=== PATIENT | male | born 1960 | race African-American/Black ===

== ENCOUNTER 2016-10-24 15:14 | Inpatient (IN) | payer OTHER ==
--- NOTE | 2016-10-24 19:29 | PDOC ---
History of Present Illness - General History Source: Patient, Sibling Exam Limitations: No Limitations - History of Present Illness Initial Comments: 10/24/16 19:46 The patient is a 55 year old male with a significant past medical history of Afib, CHF, DVT s/p stent in right leg, diabetes, hypertension, and ulcers, presenting to the Emergency Department with left leg pain for two weeks. The patient describes the pain in his left leg as a pressure which has prevented him from walking for about one week. He reports pain in his calf, and thigh as high as his groin. He also reports lower back pain, and dyspnea when getting up. The patient reports that one month ago he was hospitalized for excess fluid , when he was diagnosed with GI ulcers and was taken off Coumadin. The patient s sister reports that the patient has not eaten a meal or taken his medication in one week, though he is prescribed Lasix and hypertension medication. The patient denies chest pain, diaphoresis, and palpitations. Patient denies nausea, vomiting, and diarrhea. Patient denies fever, chills, and cough. Patient denies headache, dizziness, and blurry vision. <Jeanne Hu - Last Filed: 10/25/16 00:39> <Rylee Smallwood - Last Filed: 10/25/16 01:04> - General Chief Complaint: Weakness Stated Complaint: WEAKNESS Time Seen by Provider: 10/24/16 19:17 Past History <Jeanne Hu - Last Filed: 10/25/16 00:39> - Past Medical History Cardiac Disorders: Yes (afib) Diabetes: Yes HTN: Yes - Surgical History Appendectomy: Yes - Psycho/Social/Smoking Cessation Hx Suicidal Ideation: No Smoking History: Never smoked <Rylee Smallwood - Last Filed: 10/25/16 01:04> - Past Medical History Allergies/Adverse Reactions: Allergies Allergy/AdvReac Type Severity Reaction Status Date / Time No Known Allergies Allergy Verified 10/24/16 15:15 Review of Systems - Review of Systems Able to Perform ROS?: Yes Comments:: 10/24/16 19:47 GENERAL/CONSTITUTIONAL: No fever or chills. No weakness. HEAD, EYES, EARS, NOSE AND THROAT: No change in vision. No ear pain or discharge. No sore throat. CARDIOVASCULAR: + dyspnea. No chest pain. RESPIRATORY: No cough, wheezing, or hemoptysis. GASTROINTESTINAL: No nausea, vomiting, diarrhea or constipation. GENITOURINARY: No dysuria, frequency, or change in urination. MUSCULOSKELETAL: No muscle swelling. No neck pain. EXTREMITIES: + left leg pain. SKIN: No rash. NEUROLOGIC: No headache, vertigo, loss of consciousness, or change in strength/ sensation. ENDOCRINE: No increased thirst. No abnormal weight change. HEMATOLOGIC/LYMPHATIC: No anemia, easy bleeding, or history of blood clots. ALLERGIC/IMMUNOLOGIC: No hives or skin allergy. <Jeanne Hu - Last Filed: 10/25/16 00:39> *Physical Exam - Vital Signs Last Vital Signs Temp Pulse Resp BP Pulse Ox 97.7 F 64 18 120/63 97 10/24/16 15:16 10/24/16 15:16 10/24/16 15:16 10/24/16 15:16 10/24/16 15:16 - Physical Exam Comments: 10/24/16 19:47 GENERAL: Awake, alert, and fully oriented, in no acute distress HEAD: No signs of trauma EYES: PERRLA, EOMI, sclera anicteric, conjunctiva clear ENT: Auricles normal inspection, hearing grossly normal, nares patent, oropharynx clear without exudates. Moist mucosa NECK: Normal ROM, supple, no lymphadenopathy, JVD, or masses LUNGS: Breath sounds equal, clear to auscultation bilaterally. No wheezes, and no crackles HEART: Regular rate and rhythm, normal S1 and S2, no murmurs, rubs or gallops ABDOMEN: Soft, nontender, normoactive bowel sounds. No guarding, no rebound. No masses EXTREMITIES: 1+ pitting edema bilaterally to lower extremities. Normal range of motion. No clubbing or cyanosis. No cords, erythema, or tenderness NEUROLOGICAL: Cranial nerves II through XII grossly intact. Normal speech, normal gait SKIN: Warm, Dry, normal turgor, no rashes or lesions noted. <Jeanne Hu - Last Filed: 10/25/16 00:39> - Vital Signs Last Vital Signs Temp Pulse Resp BP Pulse Ox 97.7 F 64 18 120/63 97 10/24/16 15:16 10/24/16 15:16 10/24/16 15:16 10/24/16 15:16 10/24/16 15:16 <Rylee Smallwood - Last Filed: 10/25/16 01:04> ED Treatment Course - LABORATORY CBC & Chemistry Diagram: 10/24/16 20:16 10/24/16 20:16 - RADIOLOGY Radiology Studies Ordered: 10/24/16 22:45 Bilateral lower extremity US As reviewed by Dr. Barr IMPRESSION: Extensive DVT seen throughout left lower extremity. There is partially occlusive DVT at right common femoral vein and femoral vein. Greater saphenous veins are thrombosed bilaterally. <Jeanne Hu - Last Filed: 10/25/16 00:39> - LABORATORY CBC & Chemistry Diagram: 10/24/16 20:16 10/24/16 20:16 <Rylee Smallwood - Last Filed: 10/25/16 01:04> Medical Decision Making - Medical Decision Making 10/24/16 22:46 Patient Name: Ruben Pretty PRELIMINARY REPORT FROM [facility] EXAM: Ultrasound venous duplex bilateral DATE: 2016-10-24 20:40:25.0 IMAGES: 74 HISTORY: Pain, possible DVT REPORT: Extensive DVT seen throughout left lower extremity. There is partially occlusive DVT at right common femoral vein and femoral vein. Greater saphenous veins are thrombosed bilaterally.. THIS DOCUMENT HAS BEEN ELECTRONICALLY SIGNED Parish Barr MD 10/25/16 00:31 I requested ICU evaluation for the patient, as he has multiple systems involved , renal insuff/faliure; GI ulcers/bleeding; rapid atrial fibrillation; and multiple DVTs 10/25/16 01:03 [facility]ist wants pt on med surg obs. Bed requested. <Rylee Smallwood - Last Filed: 10/25/16 01:04> *DC/Admit/Observation/Transfer - Attestations Scribe Attestion: 10/24/16 19:48 Documentation prepared by Jeanne Hu, acting as medical language specialist for Rylee Smallwood MD. <Jeanne Hu - Last Filed: 10/25/16 00:39> - Discharge Dispostion Admit: Yes <Rylee Smallwood - Last Filed: 10/25/16 01:04> Diagnosis at time of Disposition: DVT (deep venous thrombosis), Atrial fibrillation, Acute renal insufficiency, Dehydration - Discharge Dispostion Condition at time of disposition: Poor - Referrals Referrals: Alfonso Galvan MD [Primary Care Provider] -
[2016-10-24 20:27] LABS: BASOPHIL 1.3 % (0-2.0); EOSINOPHIL 0.2 % (0-4.5); MCH 25.6 pg (25.7-33.7); MCHC 32.4 g/dl (32.0-35.9); MEAN CELL VOLUME 79.2 fl (80-96); MEAN PLT VOLUME 7.5 fl (7.5-11.1); NEUTROPHILS 78.1 % (42.8-82.8); PLATELET COUNT 223 K/MM3 (134-434); RDW 20.9 % (11.9-15.9); WHITE BLOOD COUNT 19.6 K/mm3 (4.0-10.0)
[2016-10-24 20:41] LABS: INR 1.23 (0.82-1.09); PROTHROMBIN TIME (PATIENT) 13.6 SEC (9.98-11.88)
[2016-10-24 20:58] LABS: ALBUMIN 3.4 g/dl (3.4-5.0); BILIRUBIN,TOTAL 1.7 mg/dL (0.2-1.0); CALCIUM 9.7 mg/dL (8.5-10.1); CREATININE 2.6 mg/dL (0.7-1.3)
[2016-10-24 20:59] LABS: TOT PROT 9.6 g/dl (6.4-8.2)
[2016-10-24] MEDS ORDERED: HEPARIN NA (PORCINE) 5,000 UNITS/ML 1ML VIAL IVPUSH ONE (21:25)
[2016-10-24] MEDS ORDERED: HEPARIN NA (PORCINE) 5,000 UNITS/ML 1ML VIAL IVPUSH PRN (21:25)
[2016-10-24] MEDS ORDERED: SODIUM CHLORIDE 0.9% 500 ML INFUS.BAG IV ONE (21:27)
[2016-10-24 21:43] LABS: PLATELET ESTIMATE ADEQUATE (NORMAL); POLYCHROMASIA 1+
[2016-10-24 21:44] LABS: ANISOCYTOSIS 2+; POIKILOCYTOSIS 1+; TEAR DROP CELLS RARE
[2016-10-24] MEDS ORDERED: HEPARIN NA (PORCINE) 5,000 UNITS/ML 1ML VIAL ONE (22:32)
[2016-10-24] MEDS ORDERED: HEPARIN INFUSION - 500 ML IVPB ONE (22:32)
[2016-10-24] MEDS: HEPARIN - 25,000 UNIT in SODIUM CHLORIDE 495 ML IV SCH (23:16)
--- NOTE | 2016-10-25 01:56 | HP ---
CHIEF COMPLAINT: pain in left leg since one week PCP: DR villavicencio HISTORY OF PRESENT ILLNESS: The patient is a 55 year old male with a significant past medical history of Afib, CHF, DVT s/p stent in right leg, diabetes, hypertension, and ulcers, presenting to the Emergency Department with left leg pain for one week. The patient describes the pain in his left leg ( calf and thigh ) as a pressure, non radiating 8/10 in intensity, increases on walking and standing. He also reports lower back pain, and dyspnea when getting up. Patient states he had gi bleed and was diagnosed with GI ulcers and about 2 week ago was taken off from Coumadin. The patient denies chest pain, diaphoresis, and palpitations. Patient denies nausea, vomiting, and diarrhea. Patient denies fever, chills, and cough. Patient denies headache, dizziness, and blurry vision. Patient denies burning micturation. Denies any recent contact. Denies bleeding from gums, nose, in urine and in stool. ER course was notable for: (1) IV heparin drip (2)cbc, cmp, (3) doppler usg Recent Travel: No PAST MEDICAL HISTORY: Afib ( diagnosed 2 year ago ), CHF, DVT ( 2 years ago in right leg ), PVD s/p stent in right leg, diabetes, hypertension, and ulcers PAST SURGICAL HISTORY: appendectomy Social History: Smoking: No Alcohol: No Drugs: No Family History: no relevent family history Allergies No Known Allergies Allergy (Verified 10/24/16 15:15) HOME MEDICATIONS: REVIEW OF SYSTEMS CONSTITUTIONAL: Absent: fever, chills, diaphoresis, generalized weakness, malaise, loss of appetite, weight change HEENT: Absent: rhinorrhea, nasal congestion, throat pain, throat swelling, difficulty swallowing, mouth swelling, ear pain, eye pain, visual changes CARDIOVASCULAR: Absent: chest pain, syncope, palpitations, irregular heart rate, lightheadedness , peripheral edema RESPIRATORY: Absent: cough, shortness of breath, dyspnea with exertion, orthopnea, wheezing, stridor, hemoptysis GASTROINTESTINAL: Absent: abdominal pain, abdominal distension, nausea, vomiting, diarrhea, constipation, melena, hematochezia GENITOURINARY: Absent: dysuria, frequency, urgency, hesitancy, hematuria, flank pain, genital pain MUSCULOSKELETAL: Pain in left leg SKIN: Absent: rash, itching, pallor HEMATOLOGIC/IMMUNOLOGIC: Absent: easy bleeding, easy bruising, lymphadenopathy, frequent infections ENDOCRINE: Absent: unexplained weight gain, unexplained weight loss, heat intolerance, cold intolerance NEUROLOGIC: Absent: headache, focal weakness or paresthesias, dizziness, unsteady gait, seizure, mental status changes, bladder or bowel incontinence PSYCHIATRIC: Absent: anxiety, depression, suicidal or homicidal ideation, hallucinations. PHYSICAL EXAMINATION Vital Signs - 24 hr 10/24/16 10/24/16 10/24/16 15:16 19:35 21:55 Temperature 97.7 F 97.5 F L 98.2 F Pulse Rate 64 Pulse Rate [ 88 92 H Apical] Respiratory 18 18 18 Rate Blood Pressure 120/63 Blood Pressure 127/79 118/58 [Right Arm] O2 Sat by Pulse 97 100 99 Oximetry (%) 10/25/16 01:00 Temperature 98.6 F Pulse Rate Pulse Rate [ 62 Apical] Respiratory 18 Rate Blood Pressure Blood Pressure 112/46 [Right Arm] O2 Sat by Pulse 97 Oximetry (%) GENERAL: Awake, alert, and fully oriented, in no acute distress. HEAD: Normal with no signs of trauma. EYES: Pupils equal, round and reactive to light, extraocular movements intact, EARS, NOSE, THROAT: Ears normal, nares patent, oropharynx clear without exudates. Moist mucous membranes. NECK: Normal range of motion, supple without lymphadenopathy, JVD, or masses. LUNGS: Breath sounds equal, clear to auscultation bilaterally. No wheezes, and no crackles. No accessory muscle use. HEART: s1s2 normal ABDOMEN: Soft, nontender, not distended, normoactive bowel sounds, no guarding, no rebound, no masses. MUSCULOSKELETAL: Normal range of motion at all joints. No bony deformities or tenderness. No CVA tenderness. UPPER EXTREMITIES: 2+ pulses, warm, well-perfused. No cyanosis. No clubbing. Cap refill <2 seconds. No peripheral edema. LOWER EXTREMITIES: pulses not palpable, warm, No peripheral edema. no swelling , 1x1cm ulcer present on finger of left and right feet. NEUROLOGICAL: Cranial nerves II-XII intact. Normal speech. Normal gait. PSYCHIATRIC: Cooperative. Good eye contact. Appropriate mood and affect. SKIN: Warm, dry, normal turgor, no rashes or lesions noted. Laboratory Results - last 24 hr 10/24/16 10/24/16 10/24/16 20:16 20:16 20:16 WBC 19.6 H RBC 4.97 Hgb 12.7 Hct 39.3 MCV 79.2 L MCHC 32.4 RDW 20.9 H Plt Count 223 MPV 7.5 Neutrophils % 78.1 Lymphocytes % 11.8 Monocytes % 8.6 Eosinophils % 0.2 Basophils % 1.3 Platelet Estimate Adequate Platelet Comment Rare giant plts Polychromasia 1+ Poikilocytosis 1+ Anisocytosis 2+ Tear Drop Cells Rare Morphology Comment Slide scanned INR PTT (Actin FS) D-Dimer > 5000 H Sodium 133 L Potassium 3.6 Chloride 89 L Carbon Dioxide 31 Anion Gap 13 BUN 58 H Creatinine 2.6 H Creat Clearance w eGFR 25.66 Random Glucose 57 L Lactic Acid Calcium 9.7 Total Bilirubin 1.7 H AST 21 ALT 13 Alkaline Phosphatase 138 H Total Protein 9.6 H Albumin 3.4 10/24/16 10/24/16 10/24/16 20:16 22:31 22:31 WBC RBC Hgb Hct MCV MCHC RDW Plt Count MPV Neutrophils % Lymphocytes % Monocytes % Eosinophils % Basophils % Platelet Estimate Platelet Comment Polychromasia Poikilocytosis Anisocytosis Tear Drop Cells Morphology Comment INR 1.23 H PTT (Actin FS) 25.6 L D-Dimer Sodium Potassium Chloride Carbon Dioxide Anion Gap BUN Creatinine Creat Clearance w eGFR Random Glucose Lactic Acid 2.501 H* Calcium Total Bilirubin AST ALT Alkaline Phosphatase Total Protein Albumin Doppler usg : Extensive DVT seen throughout left lower extremity. There is partially occlusive DVT at right common femoral vein and femoral vein. Greater saphenous veins are thrombosed bilaterally ASSESSMENT/PLAN: The patient is a 55 year old male with a significant past medical history of Afib, CHF, DVT s/p stent in right leg, diabetes, hypertension , and ulcers, presenting to the Emergency Department with left leg pain for one week. Found to have DVT Please confirm his list of medication. DVT : continue with heparin drip monitor aptt q6h watch for bleeding vascular surgery consult: may need IVC filter monitor vitals AMY could be pre renal started on IV fluid, gentle hydration as patient has h/o chf follow sr creatnine follow ua, urine lytes, creat, protien avoid nephrotoxic drugs renal ultrasound Leucocytosis and lactic acidosis could be due to DVT. patient is afebrile, no tachy follow wbc in morning follow ua started on IV fluid, follow repeat lactic acid afib on heparin drip coreg 12.5 bid HTN controlled coreg 25 bid DM started on sliding scale diabetic diet monitor blood glucose achs h/o CHF hold lasix 20mg bid, because to amy watch for fluid overload fluid : IV ns 42ml/hr electroyte : follow in am nutrition : diabetic diet DVT pro ; on heparin Gi pro ; started on protonix iv bid dispo : in med surg Visit type - Emergency Visit Emergency Visit: Yes ED Registration Date: 10/25/16 Care time: The patient presented to the Emergency Department on the above date and was hospitalized for further evaluation of their emergent condition. - New Patient This patient is new to me today: Yes Date on this admission: 10/25/16 - Critical Care Critical Care patient: No
[2016-10-25] MEDS: SODIUM CHLORIDE 1,000 ML IV SCH ×2 (01:57→21:04)
--- NOTE | 2016-10-25 02:50 | PN ---
<ChynaJung - Last Filed: 10/25/16 02:50> Teaching Attending Note Name of Resident: Trevon Malhotra ATTENDING PHYSICIAN STATEMENT I saw and evaluated the patient. I reviewed the resident's note and discussed the case with the resident. I agree with the resident's findings and plan as documented. SUBJECTIVE: OBJECTIVE: ASSESSMENT AND PLAN: <BoyandreRobert - Last Filed: 10/25/16 04:41> Teaching Attending Note ATTENDING PHYSICIAN STATEMENT I saw and evaluated the patient. I reviewed the resident's note and discussed the case with the resident. I agree with the resident's findings and plan as documented. Imaging data and chart reviewed. SUBJECTIVE: The patient is a 55 year old male with a significant past medical history of Afib, CHF, DVT s/p stent in right leg, diabetes, hypertension, and ulcers, presenting to the Emergency Department with left leg pain for two weeks. The patient described the pain in his left leg as a pressure which has prevented him from walking for about one week. He reported pain in his calf, and thigh. The patient reported that one month ago he was hospitalized for excess fluid, when he was diagnosed with GI ulcers and was taken off Coumadin. The patient reported that he has not eaten a meal secondary to his immobility. The patient denied chest pain, diaphoresis, and palpitations. Patient denies nausea, vomiting, and diarrhea. Patient denies fever, chills, and cough. Patient denies headache, dizziness, and blurry vision. OBJECTIVE: Vital Signs: Last Vital Signs Temp Pulse Resp BP Pulse Ox 98.6 F 62 18 112/46 97 10/25/16 01:00 10/25/16 01:00 10/25/16 01:00 10/25/16 01:00 10/25/16 01:00 Physical Exam: GENERAL: Awake, alert, and fully oriented, in no acute distress. HEENT: Atraumatic. Moist mucosa. Normocephalic. No sinus tenderness. No LAD. NECK: No JVD. No thyroid masses. Supple. LUNGS: Clear to auscultation bilaterally. No wheezing, rhonchi or rales. HEART: Regular rate and rhythm, normal S1 and S2, no murmurs, rubs or gallops, peripheral pulses normal and equal bilaterally. ABDOMEN: Soft, nontender, normoactive bowel sounds. No guarding, no rebound. No Masses. MUSCULOSKELETAL: No joint tenderness or erythema. No muscle tenderness. Normal muscle bulk and tone. EXTREMITIES: (+) scaley changes bilaterally ulcers on 3rd toes bilaterally NEUROLOGICAL: Normal speech, normal gait, no focal sensorimotor deficits. Labs: CBCD WBC 19.6 K/mm3 (4.0-10.0) H 10/24/16 20:16 RBC 4.97 M/mm3 (4.00-5.60) 10/24/16 20:16 Hgb 12.7 GM/dL (11.7-16.9) 10/24/16 20:16 Hct 39.3 % (35.4-49) 10/24/16 20:16 MCV 79.2 fl (80-96) L 10/24/16 20:16 MCHC 32.4 g/dl (32.0-35.9) 10/24/16 20:16 RDW 20.9 % (11.9-15.9) H 10/24/16 20:16 Plt Count 223 K/MM3 (134-434) 10/24/16 20:16 MPV 7.5 fl (7.5-11.1) 10/24/16 20:16 CMP Sodium 133 mmol/L (136-145) L 10/24/16 20:16 Potassium 3.6 mmol/L (3.5-5.1) 10/24/16 20:16 Chloride 89 mmol/L (98-107) L 10/24/16 20:16 Carbon Dioxide 31 mmol/L (21-32) 10/24/16 20:16 Anion Gap 13 (8-16) 10/24/16 20:16 BUN 58 mg/dL (7-18) H 10/24/16 20:16 Creatinine 2.6 mg/dL (0.7-1.3) H 10/24/16 20:16 Creat Clearance w eGFR 25.66 (>60) 10/24/16 20:16 Calcium 9.7 mg/dL (8.5-10.1) 10/24/16 20:16 Total Bilirubin 1.7 mg/dL (0.2-1.0) H 10/24/16 20:16 AST 21 U/L (15-37) 10/24/16 20:16 ALT 13 U/L (12-78) 10/24/16 20:16 Alkaline Phosphatase 138 U/L (45-117) H 10/24/16 20:16 Total Protein 9.6 g/dl (6.4-8.2) H 10/24/16 20:16 Albumin 3.4 g/dl (3.4-5.0) 10/24/16 20:16 CBC, BMP 10/24/16 20:16 10/24/16 20:16 Imaging: US Venous Duplex bilateral Impression: Extensive DVT seen throughout left lower extremity. There is partially occlusive DVT at right common femoral vein and femoral vein. Greater saphenous veins are thrombosed bilaterally.. ASSESSMENT AND PLAN: 1. Acute DVT in left lower extremity. Discussed risk and benefit of anticoagulation with risk of GI bleed. Patient verbalized understanding and agreed to coagulation. -Continue with heparin drip -Monitor aptt q6h -Watch for bleeding -Vascular surgery consult: may need IVC filter -Monitor vitals 2. AMY versus CKD (unknown baseline creatinine) -Send UA urine lytes and urine creatinine -Renal sonogram -Started on IV fluid, gentle hydration as patient has h/o chf -Avoid nephrotoxic medications 3. AFIB rate is controlled -On heparin drip -Coreg 25 bid 4. HTN. Controlled. -Coreg 25 bid 5. DM -Started on sliding scale -Diabetic diet -Monitor blood glucose achs 6. h/o CHF - Will verify medications with pharmacy - Watch for fluid overload 7. DVT pro ; on heparin Gi pro ; started on protonix iv bid Admit to med surg. Documentation prepared by Robert Guidry, acting as medical unit secretary for Dr. Chyna MD
[2016-10-25 06:02] LABS: URINE APPEARANCE SLCLOUDY; URINE BILIRUBIN NEGATIVE (NEGATIVE); URINE BLOOD NEGATIVE (NEGATIVE); URINE COLOR YELLOW; URINE GLUCOSE (UA) NEGATIVE (NEGATIVE); URINE KETONE NEGATIVE (NEGATIVE); URINE LEUK ESTERASE NEGATIVE (NEGATIVE); URINE NITRITE NEGATIVE (NEGATIVE); URINE PROTEIN NEGATIVE (NEGATIVE); URINE UROBILINOGEN NEGATIVE E.U./dl (0.2-1.0)
[2016-10-25 06:43] VITALS: BMI 38.5
[2016-10-25] MEDS: INSULIN SLIDING SCALE (NOVOLOG) 1 VIAL SQ SCH ×4 (06:52→21:14)
--- NOTE | 2016-10-25 08:02 | PN ---
Progress Note, Physician - Current Medication List Current Medications: Active Medications Carvedilol (Coreg -) 25 mg PO BID KATHLEEN Heparin Sodium (Porcine) (Heparin -) 1,000 unit IVPUSH PRN PRN PRN Reason: Heparin Heparin Sodium (Porcine) 25, (000 unit/ Sodium Chloride) 500 mls @ 20 mls/hr IV TITR KATHLEEN; 1,000 UNIT/HR PRN Reason: Protocol Last Admin: 10/24/16 23:16 Dose: 20 mls/hr Sodium Chloride (Normal Saline -) 1,000 mls @ 42 mls/hr IV ASDIR KATHLEEN Last Admin: 10/25/16 01:57 Dose: 42 mls/hr Pantoprazole Sodium (Protonix 40mg Ivpb (Pre-Docked)) 100 mls @ 200 mls/hr IVPB BID KATHLEEN Influenza Virus Vaccine (Fluvirin) 45 mcg IM .ONCE ONE Stop: 10/25/16 09:01 Insulin Aspart (Novolog Vial Sliding Scale -) 1 vial SQ ACHS KATHLEEN PRN Reason: Protocol Last Admin: 10/25/16 06:52 Dose: Not Given - Objective Vital Signs: Vital Signs Temperature 98 F 10/25/16 06:30 Pulse Rate 84 10/25/16 06:30 Respiratory Rate 18 10/25/16 06:30 Blood Pressure 117/74 10/25/16 06:30 O2 Sat by Pulse Oximetry (%) 100 10/25/16 06:30 Constitutional: Yes: Well Nourished, No Distress, Calm Eyes: Yes: WNL, Conjunctiva Clear HENT: Yes: WNL, Atraumatic, Normocephalic Neck: Yes: WNL, Supple, Trachea Midline Cardiovascular: Yes: WNL, Regular Rate and Rhythm Respiratory: Yes: WNL, Regular, CTA Bilaterally Gastrointestinal: Yes: WNL, Normal Bowel Sounds Musculoskeletal: Yes: WNL Extremities: Yes: Other ( engourged veins on left leg with mild swelling) Edema: No Edema: LLE: Trace, RLE: Trace Integumentary: Yes: Venous Stasis Changes Neurological: Yes: WNL, Alert, Oriented ...Motor Strength: WNL Psychiatric: Yes: WNL Labs: INR, PTT INR 1.23 (0.82-1.09) H 10/24/16 20:16 Impression/Plan Impression/Plan: 55 year old male with a significant past medical history of Afib, CHF, DVT s/p stent in right leg, diabetes, hypertension, and peptic ulcers admitted for extensive DVT of left lower extremity DVT -pt was recently at [facility] for upper GI bleed and was found to have peptic ulcer disease -coumadin was stopped at that point and for the last week pt has had progressive left leg swelling -found to have extensive DVT in left leg and was started on heparin drip by admitting team -will call [facility] to obtain records of EGD to ascertain the extent of peptic ulcer disease as this will guide anticoagulant therapy that pt will be discharged on -follow up Vascular surgery consult and IR consult for possible thrombectomy Peptic ulcer disease -protonix BID -will start carafate to aid in healing of ulcer given the need for full dose anticoagulation Acute Renal Failure -pt uncertaint of baseline creat -hold lisinopril -cont gentle IVF given CHF history -follow up urine lytes -follow up renal sono DM -sliding scale insulin as pt does not remember home meds CHF -cont carvedilol -hold lisinopril and lasix for AMY Afib -on heparin drip -because pt developed extensive DVT after being off coumadin for just 1 week patient is high risk to develope atrial thrombus and will need full dose anticoagulation -will call [facility] to obtain records of EGD to ascertain the extent of peptic ulcer disease as this will guide anticoagulant therapy that pt will be discharged on Visit type - Emergency Visit Emergency Visit: Yes ED Registration Date: 10/25/16 Care time: The patient presented to the Emergency Department on the above date and was hospitalized for further evaluation of their emergent condition. - New Patient This patient is new to me today: Yes Date on this admission: 10/25/16 - Critical Care Critical Care patient: No - Discharge Referral Referred to [facility] No
[2016-10-25] MEDS ORDERED: ACETAMINOPHEN 325 MG TABLET (FP) PO PRN (08:12)
[2016-10-25] MEDS: CARVEDILOL 25 MG TABLET (FP) PO SCH ×2 (09:51→21:06)
[2016-10-25] MEDS: PANTOPRAZOLE SODIUM 100 ML IVPB SCH ×2 (09:52→21:06)
[2016-10-25] MEDS ORDERED: CARVEDILOL 12.5 MG TABLET (FP) PO SCH (10:00)
--- NOTE | 2016-10-25 11:58 | CONSULT ---
- Consultation REQUESTING PROVIDER: Dr. Woods, vascular surgery CONSULT REQUEST: We have been asked to surgically evaluate this patient for left leg DVT, IVC filter placement. PCP:Reji Pickard HISTORY OF PRESENT ILLNESS:The patient is a 55 yo male who presents to the ER for evaluation of his left lower leg pain. The pain stated about 10 days ago. He has a hsitory of right LE DVT approximately one year ago and describes a procedure which sounds like a thrombolysis. He states that they did something to his right posterior knee to prevent clots from traveling. He was unsure if he had a IVC filter in placed. This past month he was treated at [facility] for ulcers in his stomach. He denies any gross bleeding with this problem and doesn' t recall having any bloody/dark stools. Since that time he has been off his coumadin and was waiting to possibly restart it after he went to a follow-up appointment for his stomach. He noted that his left leg was hurting for about 10 days. The patient was admitted with the diagnosis of DVT in the left leg. ( official report is not in the chart) The patient doesn't recall seeing a vascular surgery on a regular basis. PMHx: daibetes(insulin dependent) afib, htn, chronic second toe ulcers b/l PSHx: denies except for procedure to RLE for clot. Allergies Allergy/AdvReac Type Severity Reaction Status Date / Time No Known Allergies Allergy Verified 10/24/16 15:15 REVIEW OF SYSTEMS: CONSTITUTIONAL: Absent: fever, chills CARDIOVASCULAR: Absent: chest pain, syncope, left leg swelling RESPIRATORY: Absent: cough, shortness of breath GASTROINTESTINAL: Absent: abdominal pain, abdominal distension GENITOURINARY: Absent: dysuria, , hematuri MUSCULOSKELETAL: Absent: joint swelling, back pain SKIN: Absent: redness to Left leg, b/l second toe ulcers-not draining. HEMATOLOGIC/IMMUNOLOGIC: Absent: easy bleeding, easy bruising, lymphadenopathy NEUROLOGIC: Absent: headache, paresthesias, dizziness, u, seizure PSYCHIATRIC: Absent: anxiety, depression, suicidal or homicidal ideation, hallucinations. PHYSICAL EXAM: GENERAL: Awake, alert, and fully oriented, in no acute distress. HEAD: Normal with no signs of trauma. EYES: PERRL, sclera anicteric, conjunctiva clear. NECK: Normal ROM, supple without lymphadenopathy, JVD, or masses. LUNGS: Clear to auscultation bilat anteriorly. No wheezes, and no crackles. HEART: irregular rhythm.normal rate. ABDOMEN: Soft, nontender, not distended, normoactive bowel sounds, no guarding, no rebound, no masses. No organomegaly. MUSCULOSKELETAL: Normal ROM at all joints. No bony deformities or tenderness. No CVA tenderness. UPPER EXTREMITIES: 2+ pulses, warm, well-perfused. No cyanosis. Cap refill <2 seconds. No peripheral edema. LOWER EXTREMITIES: 2+ pulses, warm, well-perfused. b/l vascularities left > right. Swelling to left calf area with slight erythema. upper thigh appears non- edematous. 5/5 pantar/dorsi flexion b/l. b/l second toes with ulcer over distal. right is more of a callous, left is 1/2x1/2xm superficial ulcer. Both toes dark in appearance. NEUROLOGICAL: Normal speech, gait not observed. PSYCH: Cooperative. Good eye contact. Appropriate mood and affect. Vital Signs Temperature 98 F 10/25/16 06:30 Pulse Rate 84 10/25/16 06:30 Respiratory Rate 18 10/25/16 06:30 Blood Pressure 117/74 10/25/16 06:30 O2 Sat by Pulse Oximetry (%) 100 10/25/16 06:30 Lab Results WBC 19.6 K/mm3 (4.0-10.0) H 10/24/16 20:16 RBC 4.97 M/mm3 (4.00-5.60) 10/24/16 20:16 Hgb 12.7 GM/dL (11.7-16.9) 10/24/16 20:16 Hct 39.3 % (35.4-49) 10/24/16 20:16 MCV 79.2 fl (80-96) L 10/24/16 20:16 MCHC 32.4 g/dl (32.0-35.9) 10/24/16 20:16 RDW 20.9 % (11.9-15.9) H 10/24/16 20:16 Plt Count 223 K/MM3 (134-434) 10/24/16 20:16 Sodium 133 mmol/L (136-145) L 10/24/16 20:16 Potassium 3.6 mmol/L (3.5-5.1) 10/24/16 20:16 Chloride 89 mmol/L (98-107) L 10/24/16 20:16 Carbon Dioxide 31 mmol/L (21-32) 10/24/16 20:16 Anion Gap 13 (8-16) 10/24/16 20:16 BUN 58 mg/dL (7-18) H 10/24/16 20:16 Creatinine 2.6 mg/dL (0.7-1.3) H 10/24/16 20:16 Random Glucose 57 mg/dL (74-106) L 10/24/16 20:16 Calcium 9.7 mg/dL (8.5-10.1) 10/24/16 20:16 INR 1.23 (0.82-1.09) H 10/24/16 20:16 Problem List - Problems (1) DVT (deep venous thrombosis) Assessment/Plan: Pts is somewhat of a poor historian and it is difficult to determine accurately what vascular procedures he has had. I have spoken with Dr. Woods and we have ordered a ABD xray to see if he has a IVC filter in place. At his time recommend to continue treatment of this new LLE DVT with IV heparin and monitor closely for GI bleeding. It seems that he has developed this new clot while off his coumadin. The coumadin was being used for AFIB but it also may have been of benefit to him for coagulopathy reason. The official report is waiting to be dictated of the vascular study. The extensiveness is unclear, he currently has most of his swelling in his lower leg. Will wait for an official report. At time time it doesn't appear that he would benefit from a thrombolysis of this clot. Case D?w Dr. Woods and surgery to follow the patient. Code(s): I82.409 - ACUTE EMBOLISM AND THOMBOS UNSP DEEP VN UNSP LOWER EXTREMITY Qualifiers: DVT location: lower extremity Affected thrombotic vein of extremity: unspecified vein of extremity Laterality: bilateral Chronicity: unspecified Qualified Code(s): I82.403 - Acute embolism and thrombosis of unspecified deep veins of lower extremity, bilateral Visit type - Case Type Case Type: ED Admission - Emergency Emergency Visit: Yes ED Registration Date: 10/25/16 Care time: The patient presented to the Emergency Department on the above date and was hospitalized for further evaluation of their emergent condition. - New patient This patient is new to me today: Yes Date on this admission: 11/19/16 - Critical Care Critical Care patient: No Total Critical Care Time: 30 Critical Care Statement: The care of this patient involved high complexity decision making to prevent further life threatening deterioration of the patient 's condition and/or to evalute & treat vital organ system(s) failure or risk of failure.
[2016-10-25] MEDS ORDERED: INFLUENZA VACCINE 45 MCG/0.5 ML (MDV 16-17) IM ONE (12:00)
[2016-10-25] MEDS ORDERED: PT OWN MED DRAWER 7, Y5N ONE (20:07)
[2016-10-25] MEDS: HEPARIN - 25,000 UNIT in SODIUM CHLORIDE 495 ML IV SCH (21:05)
--- NOTE | 2016-10-26 00:46 | EKG ---
Test Reason : Blood Pressure : / mmHG Vent. Rate : 119 BPM Atrial Rate : 125 BPM P-R Int : 000 ms QRS Dur : 110 ms QT Int : 350 ms P-R-T Axes : 000 -33 -76 degrees QTc Int : 492 ms ATRIAL FIBRILLATION WITH RAPID VENTRICULAR RESPONSE LEFT AXIS DEVIATION INFERIOR INFARCT , AGE UNDETERMINED ABNORMAL ECG WHEN COMPARED WITH ECG OF 29-MAR-2005 10:52, ATRIAL FIBRILLATION HAS REPLACED SINUS RHYTHM VENT. RATE HAS INCREASED Confirmed by AFSHAN GARZA, SHANEL ([id number]) on 10/26/2016 12:45:24 AM Referred By: Confirmed By:SHANEL CAVANAUGH MD
[2016-10-26] MEDS: SODIUM CHLORIDE 1,000 ML IV SCH (01:58)
[2016-10-26] MEDS: INSULIN SLIDING SCALE (NOVOLOG) 1 VIAL SQ SCH ×4 (06:09→22:27)
[2016-10-26 08:17] LABS: MCH 25.9 pg (25.7-33.7); MCHC 32.7 g/dl (32.0-35.9); MEAN CELL VOLUME 79.3 fl (80-96); PLATELET COUNT 197 K/MM3 (134-434); RDW 20.7 % (11.9-15.9); WHITE BLOOD COUNT 12.3 K/mm3 (4.0-10.0)
[2016-10-26 08:19] LABS: INR 1.27 (0.82-1.09)
[2016-10-26 08:55] LABS: CALCIUM 8.6 mg/dL (8.5-10.1); MAGNESIUM 1.9 mg/dL (1.8-2.4)
[2016-10-26 09:00] LABS: ALBUMIN 2.8 g/dl (3.4-5.0); BILIRUBIN,TOTAL 1.4 mg/dL (0.2-1.0); CREATININE 1.5 mg/dL (0.7-1.3); PHOSPHOROUS 3.1 mg/dL (2.5-4.9); TOT PROT 7.3 g/dl (6.4-8.2)
[2016-10-26] MEDS: CARVEDILOL 25 MG TABLET (FP) PO SCH (10:27)
[2016-10-26] MEDS: PANTOPRAZOLE SODIUM 100 ML IVPB SCH ×2 (10:27→22:19)
[2016-10-26 12:36] LABS: MCH 25.6 pg (25.7-33.7); MCHC 32.5 g/dl (32.0-35.9); MEAN CELL VOLUME 78.9 fl (80-96); MEAN PLT VOLUME 7.5 fl (7.5-11.1); PLATELET COUNT 230 K/MM3 (134-434); RDW 20.7 % (11.9-15.9)
[2016-10-26] MEDS: HEPARIN - 25,000 UNIT in SODIUM CHLORIDE 495 ML IV SCH ×3 (12:59→21:35)
[2016-10-26] MEDS ORDERED: PT OWN MED DRAWER 7, Y5N ONE (13:03)
[2016-10-26] MEDS ORDERED: INSULIN (NOVOLOG) ASPART 100 UNITS/ML 10ML VIAL ONE (13:03)
--- NOTE | 2016-10-26 13:42 | PN ---
Addendum entered and electronically signed by Estiven Fajardo RES 10/26/16 17:29 : BP 107/56 at 5:28pm. Original Note: <Estiven Fajardo - Last Filed: 10/26/16 17:14> Physical Exam: SUBJECTIVE: Patient seen and examined this am. patient feeling well. pateitn reports same bilateral calf pain and tenderness. Denies any sob, cp, fevers, chill, N/V/D. OBJECTIVE: Vital Signs Period Temp Pulse Resp BP Sys/Dial Pulse Ox Last 24 Hr 98 F-98.4 F 65-88 18-20 97-134/58-68 100-100 GENERAL: The patient is awake, alert, and fully oriented, in no acute distress. HEAD: Normal with no signs of trauma. EYES: PERRL, extraocular movements intact, sclera anicteric, conjunctiva clear. No ptosis. ENT: Ears normal, nares patent, oropharynx clear without exudates, moist mucous membranes. NECK: Trachea midline, full range of motion, supple. LUNGS: Breath sounds equal, clear to auscultation bilaterally, no wheezes, no crackles, no accessory muscle use. HEART: Regular rate and rhythm, S1, S2 without murmur, rub or gallop. ABDOMEN: Soft, nontender, nondistended, normoactive bowel sounds, no guarding, no rebound, no hepatosplenomegaly, no masses. EXTREMITIES: 2+ pulses, warm, well-perfused, +2 edema. darker pigmentations, chronic venous stasis, bilateral calf tenderness. warm to touch no erythema. NEUROLOGICAL: Cranial nerves II through XII grossly intact. Normal speech, gait not observed. PSYCH: Normal mood, normal affect. Laboratory Results - last 24 hr 10/25/16 10/25/16 10/25/16 06:04 12:27 15:55 WBC RBC Hgb Hct MCV MCHC RDW Plt Count MPV INR PTT (Actin FS) 60.3 H D Sodium Potassium Chloride Carbon Dioxide Anion Gap BUN Creatinine Creat Clearance w eGFR POC Glucometer 94 169 Random Glucose Lactic Acid Calcium Phosphorus Magnesium Total Bilirubin AST ALT Alkaline Phosphatase Total Protein Albumin 10/25/16 10/25/16 10/26/16 19:00 21:14 06:00 WBC RBC Hgb Hct MCV MCHC RDW Plt Count MPV INR PTT (Actin FS) 55.1 H Sodium Potassium Chloride Carbon Dioxide Anion Gap BUN Creatinine Creat Clearance w eGFR POC Glucometer 146 120 Random Glucose Lactic Acid Calcium Phosphorus Magnesium Total Bilirubin AST ALT Alkaline Phosphatase Total Protein Albumin 10/26/16 10/26/16 10/26/16 06:35 06:35 06:35 WBC 12.3 H D RBC 3.88 L D Hgb 10.1 L D Hct 30.8 L D MCV 79.3 L MCHC 32.7 RDW 20.7 H Plt Count 197 MPV 8.0 INR 1.27 H PTT (Actin FS) 43.8 H Sodium Potassium Chloride Carbon Dioxide Anion Gap BUN Creatinine Creat Clearance w eGFR POC Glucometer Random Glucose Lactic Acid Calcium Phosphorus Magnesium Total Bilirubin AST ALT Alkaline Phosphatase Total Protein Albumin 10/26/16 10/26/16 10/26/16 06:35 06:35 12:05 WBC 12.0 H RBC 4.11 Hgb 10.5 L Hct 32.4 L MCV 78.9 L MCHC 32.5 RDW 20.7 H Plt Count 230 MPV 7.5 INR PTT (Actin FS) Sodium 133 L Potassium 3.4 L Chloride 94 L Carbon Dioxide 28 Anion Gap 11 BUN 45 H D Creatinine 1.5 H D Creat Clearance w eGFR 48.41 POC Glucometer Random Glucose 101 D Lactic Acid 1.280 Calcium 8.6 Phosphorus 3.1 Magnesium 1.9 Total Bilirubin 1.4 H AST 18 ALT 11 L Alkaline Phosphatase 112 Total Protein 7.3 D Albumin 2.8 L Active Medications Generic Name Dose Route Start Last Admin Trade Name Freq PRN Reason Stop Dose Admin Acetaminophen 325 mg 10/25/16 08:12 Tylenol - PO Q6H PRN FEVER OR PAIN Carvedilol 25 mg 10/25/16 10:00 10/26/16 10:27 Coreg - PO 25 mg BID KATHLEEN Administration Heparin Sodium (Porcine) 1,000 unit 10/24/16 21:25 Heparin - IVPUSH PRN PRN Heparin Heparin Sodium (Porcine) 25, 500 mls @ 20 mls/hr 10/24/16 21:30 10/25/16 21:05 000 unit/ Sodium Chloride IV 23 mls/hr TITR KATHLEEN Administration Protocol 1,000 UNIT/HR Pantoprazole Sodium 100 mls @ 200 mls/hr 10/25/16 10:00 10/26/16 10:27 Protonix 40mg Ivpb (Pre-Docked) IVPB 200 mls/hr BID KATHLEEN Administration Insulin Aspart 1 vial 10/25/16 07:00 10/26/16 06:09 Novolog Vial Sliding Scale - SQ Not Given ACHS [facility] Protocol ASSESSMENT/PLAN: The patient is a 55 year old male with a significant past medical history of Afib, CHF, DVT s/p stent in right leg, diabetes, hypertension, and ulcers, presenting to the Emergency Department with left leg pain for one week, found to have new DVT bilateral lower ext. DVT :developed this New left lower ext DVT while off his Coumadin at [facility] for GI bleed. (Coumadin was being used for AFIB but it also may have been of benefit to him for coagulopathy reason. History of right lower ext dvt. -continue with heparin drip -pt was recently at [facility] for upper GI bleed and was found to have peptic ulcer disease -monitor a ptt q6h as per protocol, watch for bleeding -vascular surgery consult appreciated: -Abd xray shows IVC filter in place. -Doppler Abd- IVC filter is patent. -Cont IV heparin -will consider life long Coumadin once we have the EGD results from [facility]. -attempted to call [facility], medical record office closed for holiday. will reattempt in AM (obtain records of EGD to ascertain the extent of peptic ulcer disease as this will guide anticoagulant therapy that pt will be discharged on) AMY- -will obtain cr base line stop IV fluid drip, as patient has h/o chf follow sr creatinine avoid nephrotoxic drugs renal ultrasound Peptic ulcer disease -protonix BID -continue carafate to aid in healing of ulcer given the need for full dose anticoagulation Leukocytosis trending down and lactic acidosis resolved could be due to DVT. patient is afebrile, no tachy UA negative afib on heparin drip coreg hold secondary to hypotension -Because pt developed extensive DVT after being off Coumadin for just 1 week patient is high risk to developed atrial thrombus and will need full dose anticoagulation HTN controlled coreg 25 bid Hold hypotension: 82/49 @ 57 bpm will hold coreg bolus 250 cc NS DM started on sliding scale diabetic diet monitor blood glucose achs CHF -hold carvedilol as pt hypotension -hold lisinopril and lasix for AMY; will determine what his base line and consider to restart if he is at base line. fluid :250 cc NS bolus electroyte : replet as needed nutrition : diabetic diet DVT pro ; on heparin Gi pro ; started on protonix iv bid dispo : in med surg Visit type - Emergency Visit Emergency Visit: Yes ED Registration Date: 10/25/16 Care time: The patient presented to the Emergency Department on the above date and was hospitalized for further evaluation of their emergent condition. - New Patient This patient is new to me today: Yes Date on this admission: 10/25/16 - Critical Care Critical Care patient: No <Reji Pickard - Last Filed: 10/26/16 17:15> Physical Exam: ATTENDING PHYSICIAN STATEMENT I saw and evaluated the patient. I reviewed the resident's note and discussed the case with the resident. I agree with the resident's findings and plan as documented. SUBJECTIVE: seen and evaluated at the bedside OBJECTIVE: resting comfortably, overall better appearing than yesterday ASSESSMENT AND PLAN: 55 year old male with a significant past medical history of Afib, CHF, DVT s/p stent in right leg, diabetes, hypertension, and peptic ulcers admitted for extensive DVT of left lower extremity DVT -pt was recently at [facility] for upper GI bleed and was found to have peptic ulcer disease -coumadin was stopped at that point and for the last week pt has had progressive left leg swelling -found to have extensive DVT in left leg and was started on heparin drip by admitting team -will call [facility] to obtain records of EGD to ascertain the extent of peptic ulcer disease as this will guide anticoagulant therapy that pt will be discharged on -follow up Vascular surgery consult and IR consult for possible thrombectomy Peptic ulcer disease -protonix BID -will start carafate to aid in healing of ulcer given the need for full dose anticoagulation Acute Renal Failure -pt uncertaint of baseline creat -creat improved today DM -sliding scale insulin as pt does not remember home meds CHF -hold carvedilol lisinopril and lasix for low BP Afib -on heparin drip -because pt developed extensive DVT after being off coumadin for just 1 week patient is high risk to develope atrial thrombus and will need full dose anticoagulation -will call [facility] to obtain records of EGD to ascertain the extent of peptic ulcer disease as this will guide anticoagulant therapy that pt will be discharged on
--- NOTE | 2016-10-26 14:46 | PN ---
Progress Note (short form) - Note Progress Note: Vascular Surgery Pt seen and examined. New left lower ext dvt. History of right lower ext dvt. Recently off coumadin for GI bleed at [facility] Abd xray shows IVC filter in place. Cont IV heparin -- > to coumadin . Life long now. Darryl Woods DO
[2016-10-26] MEDS ORDERED: SODIUM CHLORIDE 250 ML IV STA (16:06)
--- NOTE | 2016-10-26 16:21 | EKG ---
Test Reason : Blood Pressure : / mmHG Vent. Rate : 096 BPM Atrial Rate : 166 BPM P-R Int : 000 ms QRS Dur : 110 ms QT Int : 374 ms P-R-T Axes : 000 -23 -59 degrees QTc Int : 472 ms ATRIAL FIBRILLATION LOW VOLTAGE QRS INFERIOR INFARCT (CITED ON OR BEFORE 24-OCT-2016) ABNORMAL ECG WHEN COMPARED WITH ECG OF 24-OCT-2016 19:57, NO SIGNIFICANT CHANGE WAS FOUND Confirmed by AFSHAN GARZA, SHANEL ([id number]) on 10/26/2016 4:21:08 PM Referred By: Confirmed By:SHANEL CAVANAUGH MD
[2016-10-26] MEDS: SUCRALFATE 1 GM TABLET (FP) PO SCH (22:19)
[2016-10-26 23:10] LABS: URINE PROTEIN 16 mg/dl
[2016-10-27] MEDS ORDERED: guaiFENesin/D-METHORPHAN HB 10 ML UNIT-DOSE CUPS PO ONE (01:26)
[2016-10-27] MEDS: INSULIN SLIDING SCALE (NOVOLOG) 1 VIAL SQ SCH ×4 (06:13→22:08)
[2016-10-27 07:34] LABS: MCH 26.2 pg (25.7-33.7); MCHC 32.6 g/dl (32.0-35.9); MEAN CELL VOLUME 80.3 fl (80-96); MEAN PLT VOLUME 7.7 fl (7.5-11.1); PLATELET COUNT 221 K/MM3 (134-434); WHITE BLOOD COUNT 11.5 K/mm3 (4.0-10.0)
[2016-10-27 08:06] LABS: INR 1.22 (0.82-1.09); PROTHROMBIN TIME (PATIENT) 13.5 SEC (9.98-11.88)
[2016-10-27 08:24] LABS: CALCIUM 8.9 mg/dL (8.5-10.1); CREATININE 1.5 mg/dL (0.7-1.3)
[2016-10-27] MEDS: PANTOPRAZOLE SODIUM 100 ML IVPB SCH ×2 (10:50→22:06)
[2016-10-27] MEDS: SUCRALFATE 1 GM TABLET (FP) PO SCH ×2 (10:55→22:06)
[2016-10-27 11:31] LABS: SODIUM,RANDOM URINE 20 MMOL/L
[2016-10-27 11:45] LABS: CHLORIDE,RANDOM URINE < 10 MMOL/L
[2016-10-27] MEDS ORDERED: PT OWN MED DRAWER 7, Y5N ONE ×2 (12:19→15:05)
[2016-10-27] MEDS ORDERED: INSULIN (NOVOLOG) ASPART 100 UNITS/ML 10ML VIAL ONE (12:45)
[2016-10-27 13:45] LABS: URINE CREATININE 85.8 mg/dL
--- NOTE | 2016-10-27 14:15 | PN ---
Teaching Attending Note Name of Resident: Estiven Fajardo ATTENDING PHYSICIAN STATEMENT I saw and evaluated the patient. I reviewed the resident's note and discussed the case with the resident. I agree with the resident's findings and plan as documented. SUBJECTIVE:continues to have pain to R thigh, intermittent no exacerbating factors. states it was similar pain to presentation. states he never had coagulopathy workup in the past that he was aware of. was to follow up with GI doctor in 2 weeks for repeat EGD so that his coumadin could be re-started which he was unable to have done. denies CP, SOb,fever, chills, cough, N/V/C/D, hemetemsis OBJECTIVE: Last Vital Signs Temp Pulse Resp BP Pulse Ox 98.0 F 76 18 112/60 96 10/27/16 10:00 10/27/16 10:00 10/27/16 10:00 10/27/16 10:10/27/16 09:00 General NAD Extremities 2+ pitting edema, no calf tenderness, no tenderness on palpation of upper thighs ASSESSMENT AND PLAN: 55yo M with PMH afib on coumadin, DVT s/p IVC filter, HTN, CHF, DM and PVD presented to the ER and was admitted for further evaluation of their emergent condition 1. RLE DVT- has hx of and was on coumadin until it was stopped due to PUD. abdominal u/s pending to evaluate if IVC is patent. will need lifelong anticoagulation, currently on hep ggt and plan to bridge to coumadin, will consult GI to see if can re-scope at this time prior to initiating anticoagulant. records from [facility] pending. no episodes of bleeding during this hospitalization 2. Leukocytosis- no symptoms. afebrile. was not started on abx during this hospitalization. will cont to hold for now 3. Hypokalemia-resolved 4. AMY- improved. unknown baseline. waiting on medical records. avoid nephrotoxic agents 5. afib on coumadin- currently on heparin ggt. unknown home medications. re- start home meds 6. CHF- no sign of volume overload at this time. obtain home medications. 7. DVT ppx- hep ggt 8. once confirm home medications will re-start
--- NOTE | 2016-10-27 18:50 | PN ---
Physical Exam: SUBJECTIVE: Patient seen and examined at bed side. patient reports same superior lower extremity heaviness, and bilateral calf tenderness. No CP, SOB, palpitations. received [facility] endoscopy report. placed in physical chart. --'08/17/16 singular ulcer with visible visible was found in antrum, 2xclips were applied to control bleeding. a a heat prob was used to contol bleeding. hemostasis was achieved. no ulcers or active bleed in duadenum. recomendation: egd in 6 weeks. send stool pylori. 09/16/16 normal duodenum, normal espohagus, the GE junction was visualized, 3 residual ulcers were found in the antrum. normal body of stomach, cardia, fundus, and incisura. recommendation: would not reassume anticoagulation until ulcer fully healed, given, Increased risk of bleeding, EGD in one month."- - called pharmacy: patient has not received since 7.5mg Coumadin since 04/21. per patient it has been only max of 1 to 2 months with out Coumadin. home medications updated. OBJECTIVE: Vital Signs Period Temp Pulse Resp BP Sys/Dial Pulse Ox Last 24 Hr 97.7 F-98.7 F 70-78 16-20 99-113/47-75 96 GENERAL: The patient is awake, alert, and fully oriented, in no acute distress. sitting in bed comfortably. HEAD: Normal with no signs of trauma. EYES: PERRL, extraocular movements intact, sclera anicteric, conjunctiva clear. No ptosis. ENT: Ears normal, nares patent, oropharynx clear without exudates, moist mucous membranes. NECK: Trachea midline, full range of motion, supple. LUNGS: Breath sounds equal, clear to auscultation bilaterally, no wheezes, no crackles, no accessory muscle use. HEART: Regular rate and rhythm, S1, S2 without murmur, rub or gallop. ABDOMEN: Soft, nontender, nondistended, normoactive bowel sounds, no guarding, no rebound, no hepatosplenomegaly, no masses. EXTREMITIES: 2+ pulses, warm, well-perfused, +2 edema. darker pigmentations, chronic venous stasis, bilateral calf tenderness. warm to touch no erythema. NEUROLOGICAL: Cranial nerves II through XII grossly intact. Normal speech, gait not observed. PSYCH: Normal mood, normal affect. Laboratory Results - last 24 hr 10/26/16 10/26/16 10/26/16 18:18 21:35 22:00 WBC RBC Hgb Hct MCV MCHC RDW Plt Count MPV INR PTT (Actin FS) 63.3 H D Sodium Potassium Chloride Carbon Dioxide Anion Gap BUN Creatinine POC Glucometer 153 Random Glucose Calcium U Random Total Protein Ur Random Sodium Ur Random Potassium Ur Random Chloride Urine Creatinine 79.1 Protein/Creatinin Ratio 10/26/16 10/26/16 10/27/16 22:00 22:21 05:30 WBC RBC Hgb Hct MCV MCHC RDW Plt Count MPV INR PTT (Actin FS) Sodium Potassium Chloride Carbon Dioxide Anion Gap BUN Creatinine POC Glucometer 96 105 Random Glucose Calcium U Random Total Protein 16 H Ur Random Sodium 20 Ur Random Potassium 15.7 Ur Random Chloride < 10 Urine Creatinine 85.8 Protein/Creatinin Ratio 0.19 10/27/16 10/27/16 10/27/16 06:00 06:00 06:00 WBC 11.5 H RBC 3.90 L Hgb 10.2 L Hct 31.3 L MCV 80.3 MCHC 32.6 RDW 20.0 H Plt Count 221 MPV 7.7 INR 1.22 H PTT (Actin FS) 85.9 H D Sodium Potassium Chloride Carbon Dioxide Anion Gap BUN Creatinine POC Glucometer Random Glucose Calcium U Random Total Protein Ur Random Sodium Ur Random Potassium Ur Random Chloride Urine Creatinine Protein/Creatinin Ratio 10/27/16 10/27/16 10/27/16 06:00 13:03 17:21 WBC RBC Hgb Hct MCV MCHC RDW Plt Count MPV INR PTT (Actin FS) Sodium 134 L Potassium 3.8 Chloride 97 L Carbon Dioxide 28 Anion Gap 9 BUN 37 H Creatinine 1.5 H POC Glucometer 179 168 Random Glucose 112 H Calcium 8.9 U Random Total Protein Ur Random Sodium Ur Random Potassium Ur Random Chloride Urine Creatinine Protein/Creatinin Ratio Active Medications Generic Name Dose Route Start Last Admin Trade Name Freq PRN Reason Stop Dose Admin Acetaminophen 325 mg 10/25/16 08:12 Tylenol - PO Q6H PRN FEVER OR PAIN Heparin Sodium (Porcine) 1,000 unit 10/24/16 21:25 Heparin - IVPUSH PRN PRN Heparin Heparin Sodium (Porcine) 25, 500 mls @ 20 mls/hr 10/24/16 21:30 10/26/16 21:35 000 unit/ Sodium Chloride IV Not Given TITR KATHLEEN Protocol 1,000 UNIT/HR Pantoprazole Sodium 100 mls @ 200 mls/hr 10/25/16 10:00 10/27/16 10:50 Protonix 40mg Ivpb (Pre-Docked) IVPB 200 mls/hr BID KATHLEEN Administration Insulin Aspart 1 vial 10/25/16 07:00 10/27/16 17:23 Novolog Vial Sliding Scale - SQ 2 unit ACHS KATHLEEN Administration Protocol Sucralfate 1 gm 10/26/16 22:00 10/27/16 10:55 Carafate - PO 1 gm BID KATHLEEN Administration Real-time and Doppler examination of the abdomen demonstrates the following: The proximal IVC is widely patent with normal venous flow documented within this vessel. The mid and distal IVC could not be adequately visualized due to the patient's size and extensive overlying bowel gas. A follow-up contrast- enhanced CT scan of the abdomen is now recommended if evaluation of distal IVC patency is clinically indicated. IMPRESSION: Patent proximal IVC. Clinical correlation and follow-up recommended. Please see above discussion. ASSESSMENT/PLAN: The patient is a 55 year old male with a significant past medical history of Afib, CHF, DVT s/p stent in right leg, diabetes, hypertension, and ulcers, presenting to the Emergency Department with left leg pain for one week, found to have new DVT bilateral lower ext. DVT :developed this New left lower ext DVT while off his Coumadin at [facility] for GI bleed. (Coumadin was being used for AFIB but it also may have been of benefit to him for coagulopathy reason. History of right lower ext dvt. continue with heparin drip pt was recently at [facility] for upper GI bleed and was found to have peptic ulcer disease monitor a ptt as per protocol, watch for bleeding Abd xray shows IVC filter in place. -Doppler Abd- proximal IVC is widely patent, will need furether CT abd to assess fuirther patency of distal IVC. patient furrently cr 1.5 . -will consider life long Coumadin once we have the EGD results from [facility]. AMY- -will obtain cr base line stop IV fluid drip, as patient has h/o chf follow sr creatinine avoid nephrotoxic drugs Peptic ulcer disease -protonix BID -continue carafate to aid in healing of ulcer given the need for full dose anticoagulation -discussed case with Dr. clemente, r/o underling malignancy -no episode of bleed in this hospitalization -ordered PSA, ca 9-19, CEA -will consider for hem to be involved Leukocytosis trending down and lactic acidosis resolved could be due to DVT. patient is afebrile, no tachy UA negative afib on heparin drip coreg hold secondary to hypotension -Because pt developed extensive DVT after being off Coumadin for just 1 week patient is high risk to developed atrial thrombus and will need full dose anticoagulation -digioxin level in am, will consider starting home meds. hypokalemia: resolved HTN controlled coreg 25 bid Hold Leukocytosis-afebrile, no signs of infection, was not started on abx during this hospitalization. hypotension: resoled will hold coreg DM started on sliding scale diabetic diet monitor blood glucose achs CHF -hold carvedilol as pt hypotension- will consider restarting home meds -hold lisinopril and Lasix for AMY; will determine what his base line and consider to restart if he is at base line. fluid :oral hydration electroyte : replete as needed nutrition : diabetic diet DVT pro ; on heparin Gi pro ; started on protonix iv bid dispo : in med surg Visit type - Emergency Visit Emergency Visit: Yes ED Registration Date: 10/25/16 Care time: The patient presented to the Emergency Department on the above date and was hospitalized for further evaluation of their emergent condition. - New Patient This patient is new to me today: No - Critical Care Critical Care patient: No
--- NOTE | 2016-10-27 20:46 | PN ---
Progress Note (short form) - Note Progress Note: Chart reviewed. Full consult to follow As no active bleed, recommend starting AC JULIUS Coagulopathy of some concern. May be secondary to obesity but heme w/u recommended and malignancy should be ruled out. [place]
[2016-10-27] MEDS: FUROSEMIDE 40 MG TABLET (FP) PO SCH (22:06)
[2016-10-27] MEDS: HEPARIN - 25,000 UNIT in SODIUM CHLORIDE 495 ML IV SCH (22:07)
[2016-10-28] MEDS: FUROSEMIDE 40 MG TABLET (FP) PO SCH (06:32)
[2016-10-28] MEDS: INSULIN SLIDING SCALE (NOVOLOG) 1 VIAL SQ SCH ×4 (06:32→21:29)
[2016-10-28 08:04] LABS: MCH 26.5 pg (25.7-33.7); MCHC 32.5 g/dl (32.0-35.9); MEAN CELL VOLUME 81.4 fl (80-96); MEAN PLT VOLUME 8.4 fl (7.5-11.1); PLATELET COUNT 245 K/MM3 (134-434); RDW 20.2 % (11.9-15.9); WHITE BLOOD COUNT 11.2 K/mm3 (4.0-10.0)
[2016-10-28 08:05] LABS: INR 1.14 (0.82-1.09); PROTHROMBIN TIME (PATIENT) 12.6 SEC (9.98-11.88)
[2016-10-28 08:10] LABS: CALCIUM 8.7 mg/dL (8.5-10.1); CREATININE 1.3 mg/dL (0.7-1.3)
[2016-10-28 08:22] LABS: DIGOXIN LEVEL 0.2635 ng/ml (0.8-2.0)
[2016-10-28] MEDS ORDERED: PT OWN MED DRAWER 7, Y5N ONE (09:57)
[2016-10-28] MEDS: PANTOPRAZOLE SODIUM 100 ML IVPB SCH (09:59)
--- NOTE | 2016-10-28 11:13 | PN ---
Teaching Attending Note Name of Resident: Estiven Fajardo ATTENDING PHYSICIAN STATEMENT I saw and evaluated the patient. I reviewed the resident's note and discussed the case with the resident. I agree with the resident's findings and plan as documented. SUBJECTIVE: c/o R thigh pain. no improvement since yesterday. some difficulty ambulating due to the pain. denies CP, SOB,fever, chills, cough OBJECTIVE: Last Vital Signs Temp Pulse Resp BP Pulse Ox 98.5 F 69 20 116/72 96 10/28/16 06:19 10/28/16 06:19 10/28/16 06:19 10/28/16 06:19 10/27/16 21:00 General NAD Extremities 2+ pitting edema, no calf tenderness, no tenderness on palpation of upper thighs ASSESSMENT AND PLAN: 55yo M with PMH afib on coumadin, DVT s/p IVC filter, HTN, CHF, DM and PVD presented to the ER and was admitted for further evaluation of their emergent condition 1. 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 he has had a malignancy workup 3 months ago which was negative. she said that coumadin was started due to bleeding risk. d/w risks and agreed to start eliquis on discharge. she would prefer pt to have EGD prior to starting anticoagulation but if not possible will have him follow up with GI for EGD as outpatient. she states coumadin level was therapeutic during bleeding episode in September. 2. muscle pain- due to DVT vs pedal edema vs rhabdo. check CK level. start diuresis. will switch lasix to torsemide which is home medication. 3. Leukocytosis- no symptoms. afebrile. was not started on abx during this hospitalization. will cont to hold for now 4. Hypokalemia-resolved 5. AMY- improved. unknown baseline. PMD did not have access to labs during our discussion to compare but now has improved. avoid nephrotoxic agents 6. afib on coumadin- currently on heparin ggt. will slowly re-start home medications. start digoxin and torsemide. if BP tolerates will start spirolactone and lisinopril. re-start lipitor after CK levels are obtained 7. PUD- old records obtained from [facility]. had bleeding ulcer in august which was triple therapy. repeat EGD on 10/17/16 showed 3 small antral ulcers. was scheduled for repeat EGD earlier this month which he did not follow up. swtich PPI to po. old records available in chart 8. DVT ppx- hep ggt 9. d/c planning home pending if EGD is to performed inpatient vs outpatient
[2016-10-28] MEDS ORDERED: HEPARIN NA (PORCINE) 5,000 UNITS/ML 1ML VIAL IVPUSH PRN (11:32)
--- NOTE | 2016-10-28 14:42 | PN ---
Physical Exam: SUBJECTIVE: Patient seen and examined at bedside this morning. patient reports inc pain in L>R thigh and bilateral calfs. patient reports difficulty ambulating. denies sob, cp, fevers, chills, N/V/D/C. no other complaints. Discussed with Dr. 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 pcp prefers patient to be scoped to assess plan for Anti-coagulation. Dr. clemente will see patient, and after assessing will consider possible endoscopy tomorrow. OBJECTIVE: Vital Signs Period Temp Pulse Resp BP Sys/Dial Pulse Ox Last 24 Hr 97.2 F-98.5 F 69-76 18-20 106-116/61-72 96 GENERAL: The patient is awake, alert, and fully oriented, in no acute distress. sitting in bed comfortably. HEAD: Normal with no signs of trauma. EYES: extraocular movements intact, sclera anicteric, conjunctiva clear. ENT: Ears normal, nares patent, oropharynx clear without exudates, moist mucous membranes. NECK: Trachea midline, full range of motion, supple. LUNGS: Breath sounds equal, clear to auscultation bilaterally, no wheezes, no crackles, no accessory muscle use. HEART: Regular rate and rhythm, S1, S2 without murmur, rub or gallop. ABDOMEN: obese, Soft, nontender, nondistended, normoactive bowel sounds, no guarding, no rebound, no hepatosplenomegaly, no masses. EXTREMITIES: 2+ pulses, warm, well-perfused, +2 edema. darker pigmentations, chronic venous stasis, bilateral calf tenderness and thigh tenderness, warm to touch no erythema. NEUROLOGICAL: Normal speech, gait not observed. PSYCH: Normal mood, normal affect. Laboratory Results - last 24 hr 10/27/16 10/27/16 10/27/16 13:03 17:21 21:44 WBC RBC Hgb Hct MCV MCHC RDW Plt Count MPV INR PTT (Actin FS) Sodium Potassium Chloride Carbon Dioxide Anion Gap BUN Creatinine POC Glucometer 179 168 167 Random Glucose Calcium Digoxin 10/28/16 10/28/16 10/28/16 06:00 06:00 06:00 WBC 11.2 H RBC 3.97 L Hgb 10.5 L Hct 32.3 L MCV 81.4 MCHC 32.5 RDW 20.2 H Plt Count 245 MPV 8.4 INR PTT (Actin FS) 77.6 H Sodium 136 Potassium 3.5 Chloride 98 Carbon Dioxide 28 Anion Gap 10 BUN 25 H D Creatinine 1.3 POC Glucometer Random Glucose 127 H Calcium 8.7 Digoxin 0.2635 L 10/28/16 10/28/16 10/28/16 06:00 06:32 12:39 WBC RBC Hgb Hct MCV MCHC RDW Plt Count MPV INR 1.14 PTT (Actin FS) Sodium Potassium Chloride Carbon Dioxide Anion Gap BUN Creatinine POC Glucometer 116 132 Random Glucose Calcium Digoxin Active Medications Generic Name Dose Route Start Last Admin Trade Name Freq PRN Reason Stop Dose Admin Acetaminophen 325 mg 10/25/16 08:12 Tylenol - PO Q6H PRN FEVER OR PAIN Digoxin 0.125 mg 10/28/16 11:30 Lanoxin - PO DAILY KATHLEEN Heparin Sodium (Porcine) 1,000 unit 10/24/16 21:25 Heparin - IVPUSH PRN PRN Heparin Heparin Sodium (Porcine) 5,000 unit 10/28/16 11:32 Heparin - IVPUSH PRN PRN Heparin Sodium (Porcine) 25, 500 mls @ 20 mls/hr 10/24/16 21:30 10/27/16 22:07 000 unit/ Sodium Chloride IV Not Given TITR KATHLEEN Protocol 1,000 UNIT/HR Insulin Aspart 1 vial 10/25/16 07:00 10/28/16 06:32 Novolog Vial Sliding Scale - SQ Not Given ACHS KATHLEEN Protocol Pantoprazole Sodium 40 mg 10/29/16 10:00 Protonix - PO DAILY [facility] Sucralfate 1 gm 10/26/16 22:00 10/27/16 22:06 Carafate - PO 1 gm BID KATHLEEN Administration Torsemide 40 mg 10/28/16 18:00 Demadex - PO BID@0600,1800 [facility] ASSESSMENT/PLAN: The patient is a 55 year old male with a significant past medical history of Protein deficiency(hyperguglable state), Afib, CHF, DVT s/p stent in right leg , diabetes, hypertension, and ulcers, presenting to the Emergency Department with left leg pain for one week, found to have new DVT bilateral lower ext. DVT :developed this New left lower ext DVT while off his Coumadin at [facility] for GI bleed. (Coumadin was being used for AFIB but it also may have been of benefit to him for coagulopathy reason. History of right lower ext dvt. continue with heparin drip pt was recently at [facility] for upper GI bleed and was found to have peptic ulcer disease monitor a ptt as per protocol, watch for bleeding Abd xray shows IVC filter in place. -Doppler Abd- proximal IVC is widely patent, will need furether CT abd to assess fuirther patency of distal IVC. patient furrently cr 1.5 . -will consider life long Coumadin/ elquis once EGD done. not actively bleeding , AMY- patient possible volume overloaded, cr decreased after started lasix, as patient h/o CHF - cr decreased to 1.3 follow sr creatinine avoid nephrotoxic drugs Peptic ulcer disease -protonix BID will consider stopping once endoscopy done and cleared -continue carafate to aid in healing of ulcer given the need for full dose anticoagulation -no episode of bleed in this hospitalization -f/u PSA, ca 9-19, CEA. ( new information from pcp, rose had full malignancy work up 3 months ago and was negative) Leukocytosis trending down and lactic acidosis resolved could be due to DVT. patient is afebrile, no tachy UA negative afib on heparin drip coreg hold secondary to hypotension -Because pt developed extensive DVT after being off Coumadin for just 1 week patient is high risk to developed atrial thrombus and will need full dose anticoagulation -digioxin level in am, will consider starting home meds. hypokalemia: resolved HTN controlled coreg 25 bid Hold Leukocytosis-afebrile, no signs of infection, was not started on abx during this hospitalization. hypotension: resoled will hold coreg DM started on sliding scale diabetic diet monitor blood glucose achs CHF -hold carvedilol as pt hypotension- will consider restarting home meds -hold lisinopril and Lasix for AMY; will determine what his base line and consider to restart if he is at base line. fluid :oral hydration electroyte : replete as needed nutrition : diabetic diet DVT pro ; on heparin Gi pro ; started on protonix iv bid dispo : in med surg Visit type - Emergency Visit Emergency Visit: Yes ED Registration Date: 10/25/16 Care time: The patient presented to the Emergency Department on the above date and was hospitalized for further evaluation of their emergent condition. - New Patient This patient is new to me today: No - Critical Care Critical Care patient: No
[2016-10-28] MEDS: TORSEMIDE 20 MG TABLET (FP) PO SCH (18:32)
[2016-10-28] MEDS: SUCRALFATE 1 GM TABLET (FP) PO SCH ×2 (18:33→21:29)
[2016-10-28] MEDS: DIGOXIN 0.125 MG TABLET (FP) PO SCH (18:34)
--- NOTE | 2016-10-28 19:37 | CON.GI ---
Consult Consult Specialty:: GI Referred by:: Hospitalist Reason for Consultation:: h/o PUD on AC - History of Present Illness Chief Complaint: Patient admitted with new DVT History of Present Illness: 55 M with h/o DM, HTN, HLD, PVD, AF on AC, hypercoagulable state not related to malignancy admitted with DVT. He had a h/o PUD adn was treated at [facility]. Repeat EGD showd small antral ulcers-not hemorrhagic, likely residual healing ulcers from prior bleed. He has no bleeding now and has not been having black or bloody stools recently. He denies NSAID use in the recent past. - History Source History Provided By: Patient, Medical Record Limitations to Obtaining History: No Limitations - Past Medical History Cardio/Vascular: Yes: AFIB, HTN - Past Surgical History Additional Surgical History: Brandy filter - Alcohol/Substance Use Hx Alcohol Use: Yes (weekend) - Smoking History Smoking history: Former smoker Have you smoked in the past 12 months: No If you are a former smoker, when did you quit?: 10 yrs ago Home Medications - Allergies Allergies/Adverse Reactions: Allergies Allergy/AdvReac Type Severity Reaction Status Date / Time No Known Allergies Allergy Verified 10/24/16 15:15 - Home Medications Home Medications: Ambulatory Orders Atorvastatin Ca [Lipitor] 80 mg PO HS 10/27/16 Digoxin [Lanoxin -] 10/27/16 Furosemide [Lasix -] 40 mg PO BID 10/27/16 Insulin NPH Hum/Reg Insulin Hm [Humulin 70/30 Kwikpen] 100 unit SQ 10/27/16 Lisinopril [Prinivil] 20 mg PO DAILY 10/27/16 Metformin HCl [Glucophage] 1,000 mg PO BID 10/27/16 Pantoprazole Sodium [Protonix -] 40 mg PO BID 10/27/16 Spironolactone 25 mg PO BID 10/27/16 Physical Exam-GI Vital Signs: Vital Signs Temperature 98.1 F 10/28/16 14:24 Pulse Rate 80 10/28/16 18:34 Respiratory Rate 20 10/28/16 14:24 Blood Pressure 113/69 10/28/16 14:24 O2 Sat by Pulse Oximetry (%) 96 10/28/16 10:00 Constitutional: Yes: Well Nourished HENT: Yes: Normocephalic Neck: Yes: Supple Cardiovascular: Yes: Regular Rate and Rhythm Respiratory: Yes: CTA Bilaterally Labs: CBC, BMP 10/28/16 06:00 10/28/16 06:00 INR, PTT INR 1.14 (0.82-1.09) 10/28/16 06:00 Assessment/Plan Patient with coagulopathy now with dual DVT's and no noticeable bleeding from earlier ulcer disease. Recommend continue AC. No need for EGD as no bleeding and small healing ulcers seen on last exam with no visible vessels or active bleeding pose no significant threat, as long as PPI therapy is continued. He has already had f/u EGD and nothing further is indicated at this time. Thank you.
[2016-10-28] MEDS ORDERED: INSULIN (NOVOLOG) ASPART 100 UNITS/ML 10ML VIAL ONE (21:04)
[2016-10-28] MEDS: HEPARIN - 25,000 UNIT in SODIUM CHLORIDE 495 ML IV SCH (21:28)
[2016-10-29 06:10] LABS: PROSTATE SPECIFIC ANTIGEN 0.8 ng/mL (0.0-4.0)
[2016-10-29] MEDS: INSULIN SLIDING SCALE (NOVOLOG) 1 VIAL SQ SCH ×2 (06:25→12:24)
[2016-10-29] MEDS: TORSEMIDE 20 MG TABLET (FP) PO SCH (06:26)
[2016-10-29 07:35] LABS: MCH 26.1 pg (25.7-33.7); MCHC 32.6 g/dl (32.0-35.9); MEAN CELL VOLUME 79.9 fl (80-96); MEAN PLT VOLUME 8.3 fl (7.5-11.1); PLATELET COUNT 241 K/MM3 (134-434); RDW 20.3 % (11.9-15.9); WHITE BLOOD COUNT 11.8 K/mm3 (4.0-10.0)
[2016-10-29 07:47] LABS: CALCIUM 8.7 mg/dL (8.5-10.1); CREATININE 1.2 mg/dL (0.7-1.3)
--- NOTE | 2016-10-29 08:36 | PN ---
Physical Exam: SUBJECTIVE: Patient seen and examined GI no scope needed as no active bleed and start anticoag OBJECTIVE: Vital Signs Period Temp Pulse Resp BP Sys/Dial Pulse Ox Last 24 Hr 97.5 F-98.8 F 78-96 20-20 110-139/66-83 95-96 GENERAL: The patient is awake, alert, and fully oriented, in no acute distress. HEAD: Normal with no signs of trauma. EYES: PERRL, extraocular movements intact, sclera anicteric, conjunctiva clear. No ptosis. ENT: Ears normal, nares patent, oropharynx clear without exudates, moist mucous membranes. NECK: Trachea midline, full range of motion, supple. LUNGS: Breath sounds equal, clear to auscultation bilaterally, no wheezes, no crackles, no accessory muscle use. HEART: Regular rate and rhythm, S1, S2 without murmur, rub or gallop. ABDOMEN: Soft, nontender, nondistended, normoactive bowel sounds, no guarding, no rebound, no hepatosplenomegaly, no masses. EXTREMITIES: 2+ pulses, warm, well-perfused, no edema. NEUROLOGICAL: Cranial nerves II through XII grossly intact. Normal speech, gait not observed. PSYCH: Normal mood, normal affect. SKIN: Warm, dry, normal turgor, no rashes or lesions noted Laboratory Results - last 24 hr 10/28/16 10/28/16 10/28/16 06:00 06:00 12:39 WBC RBC Hgb Hct MCV MCHC RDW Plt Count MPV PTT (Actin FS) 77.6 H Sodium Potassium Chloride Carbon Dioxide Anion Gap BUN Creatinine POC Glucometer 132 Random Glucose Calcium Creatine Kinase Carcinoembryonic Ag 0.3 CA 19-9 Antigen 5 Prostate Specific Ag 0.80 10/28/16 10/29/16 10/29/16 18:28 06:00 06:00 WBC 11.8 H RBC 3.85 L Hgb 10.0 L Hct 30.7 L MCV 79.9 L MCHC 32.6 RDW 20.3 H Plt Count 241 MPV 8.3 PTT (Actin FS) 51.5 H D Sodium Potassium Chloride Carbon Dioxide Anion Gap BUN Creatinine POC Glucometer 119 Random Glucose Calcium Creatine Kinase Carcinoembryonic Ag CA 19-9 Antigen Prostate Specific Ag 10/29/16 10/29/16 06:00 06:00 WBC RBC Hgb Hct MCV MCHC RDW Plt Count MPV PTT (Actin FS) Sodium 137 Potassium 3.6 Chloride 100 Carbon Dioxide 27 Anion Gap 10 BUN 23 H Creatinine 1.2 POC Glucometer Random Glucose 124 H Calcium 8.7 Creatine Kinase 125 Carcinoembryonic Ag CA 19-9 Antigen Prostate Specific Ag Active Medications Generic Name Dose Route Start Last Admin Trade Name Freq PRN Reason Stop Dose Admin Acetaminophen 325 mg 10/25/16 08:12 Tylenol - PO Q6H PRN FEVER OR PAIN Digoxin 0.125 mg 10/28/16 11:30 10/28/16 18:34 Lanoxin - PO 0.125 mg DAILY [facility] Administration Heparin Sodium (Porcine) 1,000 unit 10/24/16 21:25 Heparin - IVPUSH PRN PRN Heparin Heparin Sodium (Porcine) 5,000 unit 10/28/16 11:32 Heparin - IVPUSH PRN PRN Heparin Sodium (Porcine) 25, 500 mls @ 20 mls/hr 10/24/16 21:30 10/28/16 21:28 000 unit/ Sodium Chloride IV Not Given TITR [facility] Protocol 1,000 UNIT/HR Insulin Aspart 1 vial 10/25/16 07:00 10/29/16 06:25 Novolog Vial Sliding Scale - SQ Not Given ACHS [facility] Protocol Pantoprazole Sodium 40 mg 10/29/16 10:00 Protonix - PO DAILY [facility] Spironolactone 25 mg 10/29/16 10:00 Aldactone - PO BID [facility] Sucralfate 1 gm 10/26/16 22:00 10/28/16 21:29 Carafate - PO Not Given BID [facility] Torsemide 40 mg 10/28/16 18:00 10/29/16 06:26 Demadex - PO 40 mg BID@0600,1800 [facility] Administration ASSESSMENT/PLAN: start eliquis on discharge.
[2016-10-29] MEDS ORDERED: PT OWN MED DRAWER 7, Y5N ONE ×2 (09:20→16:06)
[2016-10-29] MEDS: SUCRALFATE 1 GM TABLET (FP) PO SCH (09:53)
[2016-10-29] MEDS: DIGOXIN 0.125 MG TABLET (FP) PO SCH (09:53)
[2016-10-29] MEDS ORDERED: SPIRONOLACTONE 25 MG TABLET (FP) PO SCH (10:00)
[2016-10-29] MEDS ORDERED: PANTOPRAZOLE 40 MG TABLET (FP) PO SCH (10:00)
[2016-10-29] MEDS ORDERED: APIXABAN 5 MG TABLET PO SCH (14:00)
--- NOTE | 2016-10-29 15:07 | PN ---
Teaching Attending Note Name of Resident: Estiven Fajardo ATTENDING PHYSICIAN STATEMENT I saw and evaluated the patient. I reviewed the resident's note and discussed the case with the resident. I agree with the resident's findings and plan as documented. SUBJECTIVE:currently asymptomatic. states he no longer has pain in his thigh. denies CP, SOB,fver, chills, hemoptysis or bleeding witnessed pt walk >100 feet without difficulty OBJECTIVE: Last Vital Signs Temp Pulse Resp BP Pulse Ox 98.9 F 90 18 142/65 98 10/29/16 09:00 10/29/16 09:53 10/29/16 09:00 10/29/16 09:00 10/29/16 09:00 General NAD Extremities 2+ pitting edema, ASSESSMENT AND PLAN: 55yo M with PMH afib on coumadin, DVT s/p IVC filter, HTN, CHF, DM and PVD presented to the ER and was admitted for further evaluation of their emergent condition 1. RLE DVT-due to factor deficiency. on heparin ggt. no plan for EGD at this time. safe to start eliquis at this time per GI as last EGD showed small ulcers with no active bleeding. will start today. informed pt of risks of bleeding and warning signs to watch out for if develops uncontrolled bleeding. informed him to follow up with his own GI for repeat EGD. 2. muscle pain-now resolved. possible due to volume status. CK negative for rhabdo. 3. Leukocytosis- no symptoms. afebrile. was not started on abx during this hospitalization. will cont to hold for now 4. Hypokalemia-resolved 5. AMY- improved. unknown baseline. improved. avoid nephrotoxic agents 6. afib on coumadin- home medications restarted. re-started aldactone this morning. can resume lipitor. will need to have digoxin level repeated by PMD to ensure becomes therapeutic. 7. PUD- will need repeat EGD. cont protonix 8. DM- home medications held while hospitalized. states he was recently told to d/c metformin. instructed to monitor sugars closely, bring glucose log to next pmd appt to determine if medications need to be re-initiated. 9. DVT ppx- hep ggt 10. d/c home after received eliquis dosing.
[2016-10-29 15:08] VITALS: BP 114/64; PULSE 95; TEMP 98.4
--- NOTE | 2016-10-29 15:28 | DS ---
Physical Exam: SUBJECTIVE: Patient seen and examined at bed side. witnessed pt walk >100 feet without difficulty currently asymptomatic. denies CP, SOB,fver, chills, hemoptysis or bleeding OBJECTIVE: Vital Signs Period Temp Pulse Resp BP Sys/Dial Pulse Ox Last 24 Hr 97.5 F-98.9 F 78-96 18-20 110-142/64-83 95-98 PHYSICAL EXAM GENERAL: The patient is awake, alert, and fully oriented, in no acute distress. sitting up in bed confortably. HEAD: Normal with no signs of trauma. EYES: extraocular movements intact, sclera anicteric, conjunctiva clear. ENT: Ears normal, nares patent, oropharynx clear without exudates, moist mucous membranes. NECK: Trachea midline, full range of motion, supple. LUNGS: Breath sounds equal, clear to auscultation bilaterally, no wheezes, no crackles, no accessory muscle use. HEART: Regular rate and rhythm, S1, S2 without murmur, rub or gallop. ABDOMEN: obese, Soft, nontender, nondistended, normoactive bowel sounds, no guarding, no rebound, no hepatosplenomegaly, no masses. EXTREMITIES: 2+ pulses, warm, well-perfused, +2 edema. darker pigmentations, chronic venous stasis, bilateral calf tenderness and thigh tenderness, warm to touch no erythema. LABS Laboratory Results - last 24 hr 10/28/16 10/28/16 10/28/16 06:00 18:28 21:27 WBC RBC Hgb Hct MCV MCHC RDW Plt Count MPV PTT (Actin FS) Sodium Potassium Chloride Carbon Dioxide Anion Gap BUN Creatinine POC Glucometer 119 112 Random Glucose Calcium Creatine Kinase Carcinoembryonic Ag 0.3 CA 19-9 Antigen 5 Prostate Specific Ag 0.80 10/29/16 10/29/16 10/29/16 06:00 06:00 06:00 WBC 11.8 H RBC 3.85 L Hgb 10.0 L Hct 30.7 L MCV 79.9 L MCHC 32.6 RDW 20.3 H Plt Count 241 MPV 8.3 PTT (Actin FS) 51.5 H D Sodium Potassium Chloride Carbon Dioxide Anion Gap BUN Creatinine POC Glucometer Random Glucose Calcium Creatine Kinase 125 Carcinoembryonic Ag CA 19-9 Antigen Prostate Specific Ag 10/29/16 10/29/16 06:00 12:21 WBC RBC Hgb Hct MCV MCHC RDW Plt Count MPV PTT (Actin FS) Sodium 137 Potassium 3.6 Chloride 100 Carbon Dioxide 27 Anion Gap 10 BUN 23 H Creatinine 1.2 POC Glucometer 142 Random Glucose 124 H Calcium 8.7 Creatine Kinase Carcinoembryonic Ag CA 19-9 Antigen Prostate Specific Ag General NAD Extremities 2+ pitting edema, ASSESSMENT AND PLAN: 55yo M with PMH afib on coumadin, DVT s/p IVC filter, HTN, CHF, DM and PVD presented to the ER and was admitted for further evaluation of their emergent condition 1. RLE DVT-due to factor deficiency. on heparin ggt. no plan for EGD at this time. safe to start eliquis at this time per GI as last EGD showed small ulcers with no active bleeding. will start today. informed pt of risks of bleeding and warning signs to watch out for if develops uncontrolled bleeding. informed him to follow up with his own GI for repeat EGD. 2. muscle pain-now resolved. possible due to volume status. CK negative for rhabdo. 3. Leukocytosis- no symptoms. afebrile. was not started on abx during this hospitalization. will cont to hold for now 4. Hypokalemia-resolved 5. AMY- improved. unknown baseline. improved. avoid nephrotoxic agents 6. afib on coumadin- home medications restarted. re-started aldactone this morning. can resume lipitor. will need to have digoxin level repeated by PMD to ensure becomes therapeutic. 7. PUD- will need repeat EGD. cont protonix 8. DM- home medications held while hospitalized. states he was recently told to d/c metformin. instructed to monitor sugars closely, bring glucose log to next pmd appt to determine if medications need to be re-initiated. 9. DVT ppx- hep ggt 10. d/c home after received eliquis dosing. HOSPITAL COURSE: Date of Admission:10/25/16 Date of Discharge: 10/29/16 The patient is a 55 year old male with a significant past medical history of Afib, CHF, DVT s/p stent in right leg, diabetes, hypertension, and ulcers, presenting to the Emergency Department with left leg pain for one week, found to have new DVT bilateral lower ext.RLE DVT-due to factor deficiency. found to have developed this New left lower ext DVT while off his Coumadin at [facility] for GI bleed. (Coumadin was being used for AFIB but it also may have been of benefit to him for coagulopathy reason. History of right lower ext dvt. treated with heparin drip. vascular surgery consult. Abd xray shows IVC filter in place. Doppler Abd- IVC filter is patent. Peptic ulcer disease treated with protonix and carafate to aid in healing of ulcer given the need for full dose anticoagulation. Leukocytosis trended down and lactic acidosis resolved could be due to DVT. patient is afebrile, no tachy.afib-coreg hold secondary to hypotension, Because pt developed extensive DVT after being off Coumadin for just 1 week patient is high risk to developed atrial thrombus and will need full dose anticoagulation. CHF held carvedilol as pt hypotension. Leukocytosis- no symptoms. afebrile. was not started on abx during this hospitalization. Minutes to complete discharge: 37 Discharge Summary Reason For Visit: DVT,A-FIB,ACUTE RENAL INSUFFICIENCY,DEHYDRATION Current Active Problems Acute renal insufficiency (Acute) Atrial fibrillation (Acute) DVT (deep venous thrombosis) (Acute) Dehydration (Acute) Condition: Poor - Instructions Diet, Activity, Other Instructions: You are being discharged to SNF. Please call and follow up with your primary care provider in one week to assess your health. Please call and follow up with cardiology Dr. Galvan in 1 week to assess your heart, blood thing medication, digoxin level. Please call and follow up with the GI doctor (dr day) that did your endoscopy at [facility] to to follow up with endoscopy to see if the ulcers have heeled. It is especially important as you are now on blood thinner medication and make it increase risk to bleed. Please avoid taking aspirin, or NSAIDs, Alcohol, steroids as these may increase your risk of developing or worsening of your ulcer and chance of bleeding. . We held you insulin and metformin until you see your doctor and present him a long of your daily blood finger stick sugar record. As we have discussed. Please take your medications as prescribed.. Please reports to the ER or the nearest ER if you have any persistent and worsening symptoms, chest pain, palpitation, fevers, chills, night sweats, Nausea, Vomiting, severe headache dizziness or loss of consciousness. Referrals: Alfonso Galvan MD [Primary Care Provider] - Disposition: [facility] - Home Medications Comprehensive Discharge Medication List: Ambulatory Orders Atorvastatin Ca [Lipitor] 80 mg PO HS 10/27/16 Digoxin [Lanoxin -] 10/27/16 Furosemide [Lasix -] 40 mg PO BID 10/27/16 Insulin NPH Hum/Reg Insulin Hm [Humulin 70/30 Kwikpen] 100 unit SQ 10/27/16 Lisinopril [Prinivil] 20 mg PO DAILY 10/27/16 Metformin HCl [Glucophage] 1,000 mg PO BID 10/27/16 Pantoprazole Sodium [Protonix -] 40 mg PO BID 10/27/16 Spironolactone 25 mg PO BID 10/27/16 This patient is new to me today: Yes Date on this admission: 12/07/16 Emergency Visit: No Critical Care patient: No - Discharge Referral Referred to [facility] Med P.C.: No
== END 2016-10-29 18:57 | DRG 300 ==
LOC: JER 15:14 → JERBED 10-25 01:02 → INTOOBSV 10-25 01:02 → UNDOADMOB 10-25 01:02 → OBSVTOIN 10-25 01:02 → UNDOADMOB 10-25 01:15 → JERBED 10-25 01:15 → OBSVTOIN 10-25 01:42 → J7W 10-25 06:00
PROVIDERS: ADMIT Internal Medicine; ATTEND Internal Medicine
DX: I82.492 Acute embolism and thrombosis of other specified deep vein of left lower extremity (principal); N17.9 Acute kidney failure, unspecified; E87.2 Acidosis; D68.69 Other thrombophilia; I48.91 Unspecified atrial fibrillation; I82.411 Acute embolism and thrombosis of right femoral vein; E11.9 Type 2 diabetes mellitus without complications; I10 Essential (primary) hypertension; E86.0 Dehydration; M79.1 Myalgia; I50.9 Heart failure, unspecified; K27.9 Peptic ulcer, site unspecified, unspecified as acute or chronic, without hemorrhage or perforation; E87.6 Hypokalemia; E66.8 Other obesity; Z68.38 Body mass index [BMI] 38.0-38.9, adult; Z71.3 Dietary counseling and surveillance; Z87.891 Personal history of nicotine dependence
CPT/HCPCS: 36415; 71010-TC; 74000-TC; 76775-TC; 80048; 80053; 80162; 81003; 82378; 82436; 82550; 82570; 83605; 83735; 84100; 84133; 84153; 84156; 84300; 85025; 85027; 85379; 85610; 85730; 86301; 86850; 86900; 86901; 93005; 93010; 93970-TC; 93975; 97116-GP; 97161-GP; 99283-25; G0008; J1644; Q2037

== ENCOUNTER 2016-11-04 16:08 | Emergency (ER) | payer OTHER ==
--- NOTE | 2016-11-04 16:39 | PDOC ---
History of Present Illness <Nicola Sam - Last Filed: 11/04/16 18:47> - General History Source: Patient, Old Records, Primary Care Provider Exam Limitations: No Limitations - History of Present Illness Initial Comments: 11/04/16 17:43 The patient is a 56 year old male, with a significant past medical history of AFIB, renal insufficiency, diabetes, GI ulcers, and HTN, who presents to the emergency department after being sent from a rehabilitation center for evaluation. On presentation the patient has no active complaints. The patient was admitted for a 5 day stay in the hospital on 10/24/16 and discharged on after it was discovered that he had bilateral lower extremity DVTs. Lower extremity Duplex (10/24/16): Extensive DVT seen throughout left lower extremity. There is partially occlusive DVT at right common femoral vein and femoral vein. Greater saphenous veins are thrombosed bilaterally. The patient denies chest pain, shortness of breath, headache and dizziness. Denies fever, chills, nausea, vomit, diarrhea and constipation. Denies dysuria, frequency, urgency and hematuria. Allergies: None Past surgical history: Appendectomy Social history: Alcohol use. Marijuana use. PMD - Dr. Dale Vyas <Adolph Mae - Last Filed: 11/04/16 18:50> - General Chief Complaint: Revisit,Radiology Variance Stated Complaint: DVT Time Seen by Provider: 11/04/16 16:38 Past History - Past Medical History Cardiac Disorders: Yes (afib) Diabetes: Yes HTN: Yes - Surgical History Appendectomy: Yes - Psycho/Social/Smoking Cessation Hx Suicidal Ideation: No Smoking History: Former smoker Have you smoked in the past 12 months: No If you are a former smoker, when did you quit?: 10 yrs ago Hx Alcohol Use: Yes (weekend) Drug/Substance Use Hx: Yes (marijuana) Substance Use Type: Marijuana <Nicola Sam - Last Filed: 11/04/16 18:47> <Adolph Mae - Last Filed: 11/04/16 18:50> - Past Medical History Allergies/Adverse Reactions: Allergies Allergy/AdvReac Type Severity Reaction Status Date / Time No Known Allergies Allergy Verified 10/24/16 15:15 Home Medications: Ambulatory Orders Atorvastatin Ca [Lipitor] 80 mg PO HS 10/27/16 Acetaminophen [Tylenol .Regular Strength -] 325 mg PO Q6H PRN #0 tablet Apixaban [Eliquis -] 10 mg PO BID tablet 10/29/16 Digoxin [Lanoxin -] 0.125 mg PO DAILY tablet 10/29/16 Furosemide [Lasix -] 40 mg PO BID@0600,1400 tablet 10/29/16 Insulin Sliding Scale [Novolog Vial Sliding Scale -] 1 vial SQ ACHS units 10/29 Pantoprazole Sodium [Protonix -] 40 mg PO DAILY tablet.ec 10/29/16 Spironolactone [Aldactone -] 25 mg PO BID tablet 10/29/16 Sucralfate [Carafate -] 1 gm PO BID tablet 10/29/16 Torsemide [Demadex -] 40 mg PO BID@0600,1800 tablet 10/29/16 Cephalexin Monohydrate [Keflex -] 500 mg PO Q6H #40 capsule 11/04/16 Review of Systems - Review of Systems Able to Perform ROS?: Yes Comments:: 11/04/16 17:43 GENERAL/CONSTITUTIONAL: No fever or chills. No weakness. HEAD, EYES, EARS, NOSE AND THROAT: No change in vision. No ear pain or discharge. No sore throat. CARDIOVASCULAR: No chest pain or shortness of breath RESPIRATORY: No cough, wheezing, or hemoptysis. GASTROINTESTINAL: No nausea, vomiting, diarrhea or constipation. GENITOURINARY: No dysuria, frequency, or change in urination. MUSCULOSKELETAL: No joint or muscle swelling or pain. No neck or back pain. SKIN: No rash NEUROLOGIC: No headache, vertigo, loss of consciousness, or change in strength/ sensation. ENDOCRINE: No increased thirst. No abnormal weight change HEMATOLOGIC/LYMPHATIC: No anemia, easy bleeding, or history of blood clots. ALLERGIC/IMMUNOLOGIC: No hives or skin allergy. <Adolph Mae - Last Filed: 11/04/16 18:50> *Physical Exam - Physical Exam Comments: 11/04/16 18:40 EXAMINATION CONSTITUTIONAL: Alert and awake, obese, in no apparent distress HEAD: Normocephalic; atraumatic EYES: PERRL; EOM intact ENMT: External appears normal; normal oropharynx NECK: Supple; non-tender; no cervical lymphadenopathy CARD: Irregularly irregular; Normal S1, S2; no murmurs, rubs, or gallops RESP: Normal chest excursion with respiration; breath sounds clear and equal bilaterally; no wheezes, rhonchi, or rales ABD: Soft, non-distended; non-tender; no palpable organomegaly, no palpable hernias EXT: +2 pitting edema bilaterally; left lower extremity is mildly erythematous, warm to touch and mildly tender; bilateral onychomycosis is noted; there is a stage I ulceration to the dorsum of the second toe of the left and right foot; SKIN: Warm, dry, + discoloration and hyperpigmentation of lower externally is bilaterally consistent with chronic venous insufficiency; NEURO: Alert and awake, oriented 3, moving all extremities symmetrically, gait- deferred. <Nicola Sam - Last Filed: 11/04/16 18:47> - Vital Signs Last Vital Signs Temp Pulse Resp BP Pulse Ox 98.7 F 80 18 120/89 100 11/04/16 17:12 11/04/16 17:12 11/04/16 17:12 11/04/16 17:12 11/04/16 17:12 <Adolph Mae - Last Filed: 11/04/16 18:50> Heart Score/ECG Review #1 ECG reviewed & interpreted by me at: 18:49 11/04/16 16:26 Ventricular rate: 87 bpm Atrial fibrillation Left axis deviation Low voltage QRS Inferior infarct, age undetermined <Adolph Mae - Last Filed: 11/04/16 18:50> Medical Decision Making - Medical Decision Making 11/04/16 18:44 Patient is a 56-year-old male with multiple comorbidities who presents with bilateral lower extremity DVTs which were initially diagnosed on October 24 at [facility] and confirmed by an ultrasound performed 24 hours previously at [facility]. Patient's afebrile and hemodynamically stable. Evaluation of left lower externally reveals findings consistent with mild cellulitis. Patient is currently on Eliquis for DVT and atrial fibrillation. I discussed the case with Dr. fabiola giordano. We'll administer a dose of Ancef IV and will discharge patient with by mouth Keflex to care home. <Nicola Sam - Last Filed: 11/04/16 18:47> - Medical Decision Making 11/04/16 17:44 Dr. Vyas was consulted regarding the patient at 5:25pm [phone] <Adloph Mae - Last Filed: 11/04/16 18:50> *DC/Admit/Observation/Transfer - Attestations Physician Attestion: 11/04/16 18:40 The documentation was prepared by the scribe under my direct supervision. I have reviewed the documentation which correctly represents the findings, medical decision-making and critical action taken by me. <Nicola Sam - Last Filed: 11/04/16 18:47> - Attestations Scribe Attestion: 11/04/16 17:43 Documentation prepared by Adolph Mae, acting as medical parasitologist for Nicola Sam MD <Adolph Mae - Last Filed: 11/04/16 18:50> Diagnosis at time of Disposition: Cellulitis and abscess of leg, except foot DVT (deep venous thrombosis) Qualifiers: DVT location: lower extremity Affected thrombotic vein of extremity: unspecified vein of extremity Laterality: bilateral Chronicity: unspecified Qualified Code(s): I82.403 - Acute embolism and thrombosis of unspecified deep veins of lower extremity, bilateral - Discharge Dispostion Disposition: HOME Condition at time of disposition: Stable - Prescriptions Prescriptions: Cephalexin Monohydrate [Keflex -] 500 mg PO Q6H #40 capsule - Referrals Referrals: Dale Vyas MD [Primary Care Provider] - - Patient Instructions Printed Discharge Instructions: DI for Cellulitis -- Adult, DI for Deep Vein Thrombosis Additional Instructions: Take Keflex-500 mg by mouth every 6 hours for the next 10 days. Follow-up with your PMD as needed. Return immediately for worsening redness, worsening swelling , fever, chills.
[2016-11-04 17:20] VITALS: BMI 43.0
[2016-11-04] MEDS ORDERED: CEFAZOLIN 2 GM in DEXTROSE 5%-WATER - 50 ML IVPB ONE (17:25)
[2016-11-04] MEDS ORDERED: CEFAZOLIN (PRE-DOCKED) 100 ML IVPB ONE (17:45)
[2016-11-04 19:23] VITALS: BP 125/80; PULSE 72; TEMP 97.6
--- NOTE | 2016-11-08 22:17 | EKG ---
Test Reason : Blood Pressure : / mmHG Vent. Rate : 087 BPM Atrial Rate : 375 BPM P-R Int : 000 ms QRS Dur : 104 ms QT Int : 368 ms P-R-T Axes : 000 -30 -01 degrees QTc Int : 442 ms ATRIAL FIBRILLATION LEFT AXIS DEVIATION LOW VOLTAGE QRS INFERIOR INFARCT (CITED ON OR BEFORE 24-OCT-2016) CANNOT RULE OUT ANTERIOR INFARCT , AGE UNDETERMINED ABNORMAL ECG WHEN COMPARED WITH ECG OF 25-OCT-2016 04:57, NO SIGNIFICANT CHANGE WAS FOUND Confirmed by ANGELINA CRUZ MD ([id number]) on 11/08/2016 10:16:46 PM Referred By: Confirmed By:ANGELINA CRUZ MD
== END 2016-11-04 20:17 | disposition home or self-care (01) ==
LOC: JER 16:08
DX: L03.116 Cellulitis of left lower limb (principal); I82.403 Acute embolism and thrombosis of unspecified deep veins of lower extremity, bilateral; I48.91 Unspecified atrial fibrillation; Z79.01 Long term (current) use of anticoagulants; I10 Essential (primary) hypertension; E11.9 Type 2 diabetes mellitus without complications; Z79.4 Long term (current) use of insulin; L97.521 Non-pressure chronic ulcer of other part of left foot limited to breakdown of skin; L97.511 Non-pressure chronic ulcer of other part of right foot limited to breakdown of skin; B35.1 Tinea unguium
CPT/HCPCS: 93005; 93010; 99281-25

== ENCOUNTER 2017-01-16 14:20 | Inpatient (IN) | payer OTHER ==
--- NOTE | 2017-01-16 16:00 | PDOC ---
History of Present Illness - General History Source: Patient Exam Limitations: No Limitations - History of Present Illness Initial Comments: 01/16/17 16:37 The patient is a 56 year old male with a significant past medical history of diabetes, A-Fib, renal insufficiency, and hypertension, presenting to the Emergency Department with left toe ulcers and nail fall off as of today. The patient reports that he has chronic ulcers of his feet, for at least 3 month, which he cleans with saline and covers with gauze. He reports that today the toenail of his left first toe fell off. He denies any pain in the feet or toe. He denies numbness or tingling in the feet. The patient denies having a PCP, and denies seeing a doctor for his feet. The patient denies fever, chills, and cough. Patient denies nausea, vomiting, and diarrhea. Patient denies recent falls. Patient denies chest pain, palpitation, and shortness of breath. Tutoring Clinician: Dr. Saba Trujillo Surgical Hx: appendectomy, stents in legs s/p DVT 2 months ago <Jeanne Hu - Last Filed: 01/16/17 18:54> - General History Source: Patient Exam Limitations: No Limitations <Frida Watson - Last Filed: 01/18/17 07:54> - General Chief Complaint: Injury Stated Complaint: TOE NAIL FELL OFF/ FOOT PAIN Time Seen by Provider: 01/16/17 15:26 Past History <Jeanne Hu - Last Filed: 01/16/17 18:54> - Past Medical History Cardiac Disorders: Yes (afib) Diabetes: Yes HTN: Yes - Surgical History Abdominal Surgery: Yes Appendectomy: Yes - Psycho/Social/Smoking Cessation Hx Anxiety: No Suicidal Ideation: No Smoking History: Never smoked Have you smoked in the past 12 months: No If you are a former smoker, when did you quit?: 10 yrs ago Hx Alcohol Use: No Drug/Substance Use Hx: No Substance Use Type: None <Frida Watson - Last Filed: 01/18/17 07:54> - Past Medical History Allergies/Adverse Reactions: Allergies Allergy/AdvReac Type Severity Reaction Status Date / Time No Known Allergies Allergy Verified 01/16/17 14:25 Home Medications: Ambulatory Orders Apixaban [Eliquis -] 10 mg PO BID tablet 10/29/16 Digoxin [Lanoxin -] 0.125 mg PO DAILY tablet 10/29/16 Furosemide [Lasix -] 40 mg PO BID@0600,1400 tablet 10/29/16 Insulin Sliding Scale [Novolog Vial Sliding Scale -] 1 vial SQ ACHS units 10/29 Spironolactone [Aldactone -] 25 mg PO BID tablet 10/29/16 Sucralfate [Carafate -] 1 gm PO BID tablet 10/29/16 Torsemide [Demadex -] 40 mg PO BID@0600,1800 tablet 10/29/16 Review of Systems - Review of Systems Able to Perform ROS?: Yes Comments:: 01/16/17 16:37 GENERAL/CONSTITUTIONAL: No: fever, chills, weakness, loss of appetite. HEAD, EYES, EARS, NOSE AND THROAT: No: change in vision, ear pain, discharge, sore throat, throat swelling. CARDIOVASCULAR: No: chest pain, lightheadedness, palpitations, syncope RESPIRATORY: No: cough, shortness of breath, wheezing, hemoptysis, stridor. GASTROINTESTINAL: No: nausea, vomiting, abdominal cramping, diarrhea, rectal bleeding, constipation. GENITOURINARY: No: dysuria, hematuria, frequency, urgency, flank pain. MUSCULOSKELETAL: No: back pain, neck pain, joint pain, muscle swelling or pain EXTREMETIES: Present: + ulcers to first and second toes of left foot, + nail fell off first toe left foot SKIN: No: lesions, pallor, rash or easy bruising. NEUROLOGIC: No: headache, vertigo, paresthesias, weakness ENDOCRINE: No: unexplained weight gain or loss HEMATOLOGIC/LYMPHATIC: No: anemia, easy bleeding, swelling nodes <Jeanne Hu - Last Filed: 01/16/17 18:54> *Physical Exam - Vital Signs Last Vital Signs Temp Pulse Resp BP Pulse Ox 98.3 F 87 18 107/49 100 01/16/17 14:25 01/16/17 14:25 01/16/17 14:25 01/16/17 14:25 01/16/17 14:25 - Physical Exam Comments: 01/16/17 16:57 GENERAL: Patient is obese. The patient is in no acute distress. HEAD: Normal with no signs of trauma. EYES: PERRLA, EOMI, sclera anicteric, conjunctiva clear. ENT: Ears normal, nares patent, oropharynx clear without exudates. Moist mucous membranes. NECK: Normal range of motion, supple without lymphadenopathy, JVD, or masses. LUNGS: Breath sounds equal, clear to auscultation bilaterally. No wheezes, and no crackles. HEART: Regular rate and rhythm, normal S1 and S2 without murmur, rub or gallop. ABDOMEN: Soft, nontender, normoactive bowel sounds. No guarding, no rebound. EXTREMITIES: Oozing ulcer first and second toes, nail fell off first toe of left foot, malodorous, wet gangrene. Foot is warm, unable to palpate DP or PT in left foot. Healing ulcers to toes of right foot. No tenderness. Normal range of motion, no edema. No clubbing or cyanosis. NEUROLOGICAL: Cranial nerves II through XII grossly intact. Normal speech. No focal neurological deficits. MUSCULOSKELETAL: Back nontender to palpation, no CVA tenderness SKIN: Warm, Dry, normal turgor, no rashes or lesions noted. <Jeanne Hu - Last Filed: 01/16/17 18:54> - Vital Signs Last Vital Signs Temp Pulse Resp BP Pulse Ox 98.3 F 87 18 107/49 100 01/16/17 14:25 01/16/17 14:25 01/16/17 14:25 01/16/17 14:25 01/16/17 14:25 <Frida Watson - Last Filed: 01/18/17 07:54> Heart Score/ECG Review #1 ECG reviewed & interpreted by me at: 18:13 01/16/17 18:13 Twelve-lead EKG was performed and reviewed by me. Afib rate of 84 bpm Left xis deviation Intervals nml: QRS:108ms, QTc:418ms No ST elevations or depressions T wave flattening I, III, III, AVF <Frida Watson - Last Filed: 01/18/17 07:54> ED Treatment Course - LABORATORY CBC & Chemistry Diagram: 01/16/17 16:16 01/16/17 16:16 - RADIOLOGY Radiograph Interpretation: 01/16/17 18:54 waiting for foot XRay to be read by Imaging director of cardiopulmonary services <Jeanne Hu - Last Filed: 01/16/17 18:54> - LABORATORY CBC & Chemistry Diagram: 01/17/17 06:00 01/17/17 06:00 <Frida Watson - Last Filed: 01/18/17 07:54> Medical Decision Making - Critical Care Time Total Critical Care Time (minutes): 35 Critical Care Statement: The care of this patient involved high complexity decision making to prevent further life threatening deterioration of the patient 's condition and/or to evalute & treat vital organ system(s) failure or risk of failure. - Medical Decision Making 01/16/17 15:59 A portion of this note was documented by scribe services under my direction. I have reviewed the details of the note, within reason, and agree with the documentation with the following case summary and management plan written by me. Nursing documentation reviewed and incorporated into medical decision making 01/16/17 18:23 this is a 56 yo M DM, HTN, HLD who presents to the ER with a complaint of toe nail problem The patient states that he had ulcer/scab on his toes since his last admission He has been performing local wound care at home but noted that his great toe nail fell off He denies pain He denies fevers He denies trauma to the toe He denies numbness On examination Distal portion of the great toe is necrotic (+) discharge noted from the great toe Foot is warm DP and PT are difficulty to palpate DD: Wet gangrene, diabetic foot ulcer, osteomyelitis Will do labs Will do x ray Will do antibiotics Will do arterial US 01/16/17 18:35 Laboratory Tests 01/16/17 01/16/17 01/16/17 16:16 16:16 16:16 WBC 17.0 H D Hgb 11.9 D Hct 36.4 D Plt Count 381 D Neutrophils % 81.1 Lymphocytes % 12.2 INR 2.40 H D Sodium 133 L Potassium 3.5 Chloride 94 L Carbon Dioxide 25 BUN 59 H D Creatinine 3.4 H D Random Glucose 294 H D 01/16/17 18:35 Labs demonstrate Renal Insufficiency Will start IV hydration Potassium nml 01/16/17 18:36 Pt given Vancomycin and Zosyn Pt will need levels prior to re dosing Xrays demonstrate no Air Will send to imaging telecommunications network engineer Arterial US pending as well 01/18/17 07:53 <Frida Watson - Last Filed: 01/18/17 07:54> *DC/Admit/Observation/Transfer - Attestations Scribe Attestion: 01/16/17 16:39 Documentation prepared by Jeanne Hu, acting as medical coding instructor for Frida Watson MD/DO. <Jeanne Hu - Last Filed: 01/16/17 18:54> - Discharge Dispostion Admit: Yes <Frida Watson - Last Filed: 01/18/17 07:54> Diagnosis at time of Disposition: Acute renal insufficiency, Gangrene of toe of left foot - Discharge Dispostion Condition at time of disposition: Stable
[2017-01-16 16:33] LABS: BASOPHIL 0.7 % (0-2.0); EOSINOPHIL 0.3 % (0-4.5); MCH 27.7 pg (25.7-33.7); MCHC 32.7 g/dl (32.0-35.9); MEAN CELL VOLUME 84.8 fl (80-96); MEAN PLT VOLUME 7.4 fl (7.5-11.1); NEUTROPHILS 81.1 % (42.8-82.8); PLATELET COUNT 381 K/MM3 (134-434); RDW 15.3 % (11.9-15.9)
[2017-01-16 16:48] LABS: INR 2.4 (0.82-1.09); PROTHROMBIN TIME (PATIENT) 26.9 SEC (9.98-11.88)
[2017-01-16] MEDS ORDERED: VANCOMYCIN 1,500 MG in DEXTROSE 5%-WATER - 500 ML IVPB ONE (16:52)
[2017-01-16] MEDS ORDERED: PIPERACILLIN/TAZOB 3.375 GM/50 ML PRE-DOCKED IVPB ONE (16:52)
[2017-01-16] MEDS ORDERED: VANCOMYCIN 1 GRAM (PRE-DOCKED) 250 ML IVPB ONE (16:59)
[2017-01-16] MEDS ORDERED: PIPERACILLIN/TAZOB 3.375 GM 50 ML IVPB ONE (17:00)
[2017-01-16 17:06] LABS: BILIRUBIN,TOTAL 0.6 mg/dL (0.2-1.0); CALCIUM 8.8 mg/dL (8.5-10.1); COCKROFT - GAULT 33.8; CREATININE 3.4 mg/dL (0.7-1.3); TOT PROT 8.7 g/dl (6.4-8.2)
[2017-01-16] MEDS ORDERED: SODIUM CHLORIDE 1,000 ML IV STA (18:36)
--- NOTE | 2017-01-16 19:43 | PN ---
<Jung Clemente - Last Filed: 01/16/17 19:43> Teaching Attending Note Name of Resident: Dang Hassan ATTENDING PHYSICIAN STATEMENT I saw and evaluated the patient. I reviewed the resident's note and discussed the case with the resident. I agree with the resident's findings and plan as documented. SUBJECTIVE: OBJECTIVE: ASSESSMENT AND PLAN: <JeffryMarlene - Last Filed: 01/17/17 00:01> Teaching Attending Note ATTENDING PHYSICIAN STATEMENT I saw and evaluated the patient. I reviewed the resident's note and discussed the case with the resident. I agree with the resident's findings and plan as documented. Imaging data and chart reviewed. 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 Patient reports L big toenail fell off yesterday and decided to come to the ED for further evaluation. Patient states he is noncompliant with his insulin and metformin. Patient;s history is significant for uncontrolled DM. per chart, patient was recently discharged from hospital for Blood clots. Upon ED evaluation, he was found to have L 1st toe with gangrene with necrosis to the distal phalange, foul smelling of 1st and 2nd toes with visible discharge. Patient denies any trauma. Patient admits he did not try to self medicate himself with abx. Does not follow with PMD or dermatology physician assistant. Patient was given Vancomycin and Zosyn in the ER. Arterial duplex of LE did not reveal occlusion with LE arteries. OBJECTIVE: Last Vital Signs Temp Pulse Resp BP Pulse Ox 98.2 F 71 18 107/52 98 01/16/17 20:16 01/16/17 20:16 01/16/17 20:16 01/16/17 20:16 01/16/17 20:16 GENERAL: Awake, alert, and fully oriented, in no acute distress. Nontoxic appearing. HEENT: Atraumatic. +Dry mucous membranes. Normocephalic. No sinus tenderness. No LAD. +Poor dentition. NECK: No JVD. No thyroid masses. Supple. LUNGS: Clear to auscultation bilaterally. No wheezing, rhonchi or rales. HEART: Irregular rate and rhythm, normal S1 and S2, no murmurs, rubs or gallops , peripheral pulses normal and equal bilaterally. ABDOMEN:+ Obese. Soft, nontender, normoactive bowel sounds. No guarding, no rebound. No Masses. MUSCULOSKELETAL: No joint tenderness or erythema. No muscle tenderness. Normal muscle bulk and tone. EXTREMITIES: +L 1st hallux necrotic with black ascar over tip of 1st toe. Foul smelling. Visible yellow purulent discharge. +L 2nd toes edematous and erythematous with discharge from dorsal aspect. +Chronic appearing ulcers on L 2nd toe. +Soles of feet with sensation grossly intact. +Trace bilateral edema. No clubbing or cyanosis. Moves all extremities. NEUROLOGICAL: Normal speech, no focal sensorimotor deficits. SKIN: Warm, dry, no rashes or lesions noted. +Turgor is decreased. Laboratory Results - last 24 hr 01/16/17 01/16/17 01/16/17 16:16 16:16 16:16 WBC 17.0 H D RBC 4.30 Hgb 11.9 D Hct 36.4 D MCV 84.8 MCHC 32.7 RDW 15.3 D Plt Count 381 D MPV 7.4 L D Neutrophils % 81.1 Lymphocytes % 12.2 Monocytes % 5.7 Eosinophils % 0.3 Basophils % 0.7 INR 2.40 H D Sodium 133 L Potassium 3.5 Chloride 94 L Carbon Dioxide 25 Anion Gap 14 BUN 59 H D Creatinine 3.4 H D Creat Clearance w eGFR 18.76 Random Glucose 294 H D Calcium 8.8 Total Bilirubin 0.6 D AST 16 ALT 14 D Alkaline Phosphatase 126 H Total Protein 8.7 H Albumin 3.0 L Imaging: Foot Xray Impression:Soft tissue swelling is noted about the first and second toes. There is absence of the soft tissues at the tip of the great toe possibly postsurgical. There is no obvious acute bony destructive abnormality is seen. Venous Duplex LE Impression The major arteries of the right and left lower extremities including the common femoral, superficial femoral, popliteal and posterior tibial arteries demonstrate mild atherosclerotic plaque Normal triphasic waveforms bilaterally and normal velocities without sonographic evidence of hemodynamically stenosis EKG L Dickinson Deviation Afib ASSESSMENT AND PLAN: 1.) Wet Gangrene of L hallux with probable osteomyelitis -L 2nd toe cellulitis r.o osteomyelitis secondary to uncontrolled diabetes. Should evaluate for PVD. No signs of systemic infection (sepsis). Vancomycin 1g IV if random daily level is less than 15 (patient has AMY) Zosyn 2.25 g IV Q6 hours (adjusted for renal clearance) Blood Cultures x2 Wound Culture from L toe Local wound care Strict glucose control JYOTHI Podiatry consult in AM vascular surgery consult in AM ID evaluation in AM 2.) AMY Send UA, urine lytes and urine creatinine Renal sonogram Is and Os Daily weights Avoid nephrotoxins IVF hydration Hold lisinopril due to creatinine high 3.)Uncontrolled DM Strict Insulin SS Levemir 10 units QHS Confirm patients diabetes meds with pharmacy in the AM Diabetic Diet 4.)Atrial fibrillation (Rate is controlled) Plan: Repeat EKG ECHO Hold xarelto due to renal insufficiency Heparin drip while holding xarelto 5.)HTN Hold lisinopril (renal insufficiency and patient was hypotensive) 6.)Hx of DVT Heparin drip 7.)DVT PPx Heparin drip Documentation prepared by Marlene Teran, acting as medical claims processor for Jung Clemente MD.
--- NOTE | 2017-01-16 20:48 | HP ---
CHIEF COMPLAINT: " my left big toe fell off" PCP: none. patient sees a completion manager at [facility] Dr Grigsby. 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 He states that he has has b/l 2nd metatarsal ulcers for the past 2-3 mo, which he has been cleaning with saline and wrapping with gauze. The R ulcer improved but the left one appeared to get a little worse until the L 1st metatarsal toe fell off this morning. Patient denies pain in affected toes, LE edema, loss of sensation or gait instability. He appears unaware of the true appearance of his left metatarsals. He has history of RLE DVT 2 yrs ago while on coumadin for his a fib, at that time he received IVC filter. On 11/2016 he was hospitalized for LLE DVT which he developed while he was off NOAC due to upper GIB ulcers. He has been noncompliant with all diabetic meds on d/c. He is compliant with HTN meds and eliquis. He has no f/u with pcp, endocrinology, podiatry or opthalmology. He is unaware of A1C numbers and admits to being noncompliant with diabetic diet. He denies f/c, malaise, calf pain, chest pain, n/v, abd pain, diarrhe, constipation or h/a. He reports intentional weight loss of 10 lb over the past few mo. He reports occasional cough productive of yellow sputum and mild sob since his last hospitalization in november. Patient ambulates w/o difficulty ER course was notable for: (1) labs (2) ekg, foot x ray, LLE duplex (3)zosyn 3.37, vanco 1.5, ivf Recent Travel: denies PAST MEDICAL HISTORY: as above PAST SURGICAL HISTORY: appendectomy, IVC filter Social History: lives at home alone w/o vns, had VNS in past Smoking: past light smoker in young adulthood Alcohol: denies Drugs: denies Family History: dm, htn Allergies No Known Allergies Allergy (Verified 01/16/17 14:25) HOME MEDICATIONS: Home Medications Medication Instructions Recorded Apixaban [Eliquis -] 10 mg PO BID tablet 10/29/16 Digoxin [Lanoxin -] 0.125 mg PO DAILY tablet 10/29/16 Furosemide [Lasix -] 40 mg PO BID@0600,1400 tablet 10/29/16 Insulin Sliding Scale [Novolog 1 vial SQ ACHS units 10/29/16 Vial Sliding Scale -] Spironolactone [Aldactone -] 25 mg PO BID tablet 10/29/16 Sucralfate [Carafate -] 1 gm PO BID tablet 10/29/16 Torsemide [Demadex -] 40 mg PO BID@0600,1800 tablet 10/29/16 REVIEW OF SYSTEMS CONSTITUTIONAL: Absent: fever, chills, diaphoresis, generalized weakness, malaise, loss of appetite HEENT: Absent: rhinorrhea, nasal congestion, throat pain CARDIOVASCULAR: Absent: chest pain, syncope, palpitations, irregular heart rate RESPIRATORY: Absent: dyspnea with exertion, orthopnea, wheezing, stridor, hemoptysis GASTROINTESTINAL: Absent: abdominal pain, abdominal distension, nausea, vomiting, diarrhea, constipation, melena, hematochezia GENITOURINARY: Absent: dysuria, flank pain MUSCULOSKELETAL: Absent: myalgia, arthralgia, joint swelling, back pain, neck pain SKIN: Absent: rash, itching, pallor HEMATOLOGIC/IMMUNOLOGIC: Absent: frequent infections ENDOCRINE: Absent: unexplained weight gain, unexplained weight loss, heat intolerance, cold intolerance NEUROLOGIC: Absent: headache, focal weakness or paresthesias, dizziness, unsteady gait, seizure PSYCHIATRIC: Absent: anxiety, depression PHYSICAL EXAMINATION Vital Signs - 24 hr 01/16/17 20:16 Temperature 98.2 F Pulse Rate [ 71 Apical] Respiratory 18 Rate Blood Pressure 107/52 [Left Arm] O2 Sat by Pulse 98 Oximetry (%) GENERAL: Awake, alert, and fully oriented, in no acute distress. HEAD: Normal with no signs of trauma. EYES: Pupils equal, round and reactive to light, extraocular movements intact, sclera anicteric, conjunctiva clear. No lid lag. EARS, NOSE, THROAT: somewhat dry mucous membranes. NECK: supple without lymphadenopathy, JVD, or masses. LUNGS: Breath sounds equal, clear to auscultation bilaterally. HEART: Regular rate and rhythm, normal S1 and S2 without murmur ABDOMEN: Soft, nontender, not distended, normoactive bowel sounds, no guarding, no rebound, no masses. + hepatomegaly MUSCULOSKELETAL: Normal range of motion at all joints. No bony deformities or tenderness. No CVA tenderness. UPPER EXTREMITIES: 2+ pulses, warm, well-perfused. No cyanosis. No clubbing. No peripheral edema. LOWER EXTREMITIES: absent pulses, RLE cool, trace edema, toe nail deformation, 2nd toe dorsal blister healing, dry, nonerythematous, nondraining. LLE warm, moderate edema especially of 1st and 2nd toes, 1st toe wet gangrene, malodorous, oozing purulent discharge, bone exposed. 2nd toe edematous with dorsal ulcer also oozing purulent discharge, edema and skin breakdown involving distal tarsal area NEUROLOGICAL: Cranial nerves II-XII grossly intact. Normal speech. PSYCHIATRIC: Cooperative. Good eye contact. Appropriate mood and affect. 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 He states that he has has b/l 2nd metatarsal ulcers for the past 2-3 mo, which he has been cleaning with saline and wrapping with gauze. Home med list needs to be reconciled. Patient states he has been taking xeralto 20, asa 81d, aldactone, digoxin, atorvastatin, lisinopril. Wet Gangrene of Left 1st and second metatarsals with Osteomyelitis -not septic, does not meet SIRS criteria; hemodynamically stable, BP baseline 105-120 systolic -exposed bone; will require prolonged abx course of 6 w and picc for osteo -foot x ray p/d -requires surgical debridement; consult Podiatry and vascular, type/screen -daily dressing changes -wound culture and gram stain; blood culture -consult ID; no history of bacteremia or drug resistant organisms -MRSA, pseudomonas, anaerobe and gram negative coverage. Renal dose zosyn 2.25q6 , echols 1.5 given in ed, will check level AM and redose, goal 15-20 AMY on CKD -creat 3.4, was 1.2 on 10/29/16 -likely due to uncontrolled Dm and volume depletion, patient not septic -IVF NS @125 -consult renal -UA, urine lyes, NA, creat, to calculate FENA, eosinophils to r/i drug induced ATN -monitor creat -hold nephrotoxic home meds IDDM -uncontrolled, was not on meds at home since last d/c -BGM ACHS -sliding scale -a1c HTN -cntrolled, on the low side at this time -continue torsemide (no renal dose needed) -reconcile meds from pharmacy AM A fib -hold xeralto (renal precaution) -failed coumadin in past -start Heparin Drip -repeat EKG (initial shows a fib 86, left axis div, poor R progression and possible old inferior wall Mi) -TTE History DVT -LE duplex Cough -CXR FEN NS @125 -mild hyponatremia and chloremia resolve with IVF -diabetic a restricted diet -hep, ppi Dispo: med aren Problem List - Problem (1) Gangrene of toe of left foot Code(s): I96 - GANGRENE, NOT ELSEWHERE CLASSIFIED (2) Acute renal insufficiency Code(s): N28.9 - DISORDER OF KIDNEY AND URETER, UNSPECIFIED (3) Atrial fibrillation Code(s): I48.91 - UNSPECIFIED ATRIAL FIBRILLATION (4) Cellulitis and abscess of leg, except foot Code(s): L02.419 - CUTANEOUS ABSCESS OF LIMB, UNSPECIFIED L03.119 - CELLULITIS OF UNSPECIFIED PART OF LIMB (5) Dehydration Code(s): E86.0 - DEHYDRATION (6) HTN (hypertension) Code(s): I10 - ESSENTIAL (PRIMARY) HYPERTENSION (7) Diabetes mellitus Code(s): E11.9 - TYPE 2 DIABETES MELLITUS WITHOUT COMPLICATIONS Visit type - Emergency Visit Emergency Visit: Yes ED Registration Date: 01/16/17 Care time: The patient presented to the Emergency Department on the above date and was hospitalized for further evaluation of their emergent condition. - New Patient This patient is new to me today: Yes Date on this admission: 01/16/17 - Critical Care Critical Care patient: No
[2017-01-16] MEDS ORDERED: HEPARIN NA (PORCINE) 5,000 UNITS/ML 1ML VIAL IVPUSH PRN (23:10)
[2017-01-16] MEDS ORDERED: PIPERACILLIN/TAZOB 2.25 GM 50 ML IVPB ONE (23:21)
[2017-01-17] MEDS ORDERED: PIPERACILLIN/TAZOB 2.25 GM 50 ML IVPB ONE ×2 (02:45→06:00)
[2017-01-17] MEDS: SODIUM CHLORIDE 1,000 ML IV SCH ×2 (02:49→13:13)
[2017-01-17] MEDS: HEPARIN - 25,000 UNIT in SODIUM CHLORIDE 495 ML IV SCH ×2 (02:50→10:14)
[2017-01-17] MEDS ORDERED: TORSEMIDE 20 MG TABLET (FP) PO SCH (06:00)
[2017-01-17] MEDS ORDERED: INSULIN SLIDING SCALE (NOVOLOG) 1 VIAL SQ SCH (07:00)
[2017-01-17 07:11] LABS: MCH 28.7 pg (25.7-33.7); MEAN CELL VOLUME 84.2 fl (80-96); MEAN PLT VOLUME 7.2 fl (7.5-11.1); PLATELET COUNT 295 K/MM3 (134-434); RDW 15.1 % (11.9-15.9); WHITE BLOOD COUNT 13.5 K/mm3 (4.0-10.0)
[2017-01-17 07:26] LABS: INR 1.87 (0.82-1.09); PROTHROMBIN TIME (PATIENT) 20.8 SEC (9.98-11.88)
[2017-01-17 07:29] LABS: ACTIVATED PTT 36.3 SECONDS (26.9-34.4)
--- NOTE | 2017-01-17 07:38 | PN ---
Progress Note (short form) - Note Progress Note: 56 year old male presents with gangrene to left great toe. PT has been treated for second toe ulcer which healed. Was in hospital for great toe infection a few months ago and thought it healed. PT noticed nail fell off yesterday and went to ER. Pt states it does not hurt. Denies fever/N/V/sweats or chills. Afebrile VSS PMH IDDM, HTN,Afib NKDA PSH : AP ELKE: Nonpalpable pedal pulses . NVS decreased. epicritic sensations grossly decreased 2nd ulcer fully healed great toe ulcer left foot. Necrotic distally, does not probe deep to bone. No undermining noted. No signs of ascending cellulitis . Negative adenopathy or lymphangitis. (+)) malodor. No purulence noted Non tender on palpation . No crepitus on ROM. No fluctuance noted elevated WBC count 17k Impression: Diabetic foot infection left foot Gangrene left hallux Plan : Vascular consult ordered , to be cleared for distal syme amputation left hallux RECC 3- phase bone scan to assess proximity of toe amputation X rays reviewed depict lytic changes distal phalanx left hallux. Pt off oral anticoagulant and on heparin Cont local wound care Thank you for courtesy of this consult
[2017-01-17 07:41] LABS: CALCIUM 8.1 mg/dL (8.5-10.1); COCKROFT - GAULT 54.94; CREATININE 2.6 mg/dL (0.7-1.3); MAGNESIUM 1.3 mg/dL (1.8-2.4); PHOSPHOROUS 3.3 mg/dL (2.5-4.9)
[2017-01-17 07:54] LABS: DIGOXIN LEVEL 1.1014 ng/ml (0.8-2.0)
[2017-01-17] MEDS ORDERED: PT OWN MED DRAWER 7, Y5N ONE (09:35)
[2017-01-17] MEDS: DIGOXIN 0.125 MG TABLET (FP) PO SCH (09:37)
[2017-01-17] MEDS ORDERED: SUCRALFATE 1 GM TABLET (FP) PO SCH (10:00)
--- NOTE | 2017-01-17 10:22 | PN ---
Physical Exam: SUBJECTIVE: Patient seen and examined. No complaints. OBJECTIVE: Vital Signs Period Temp Pulse Resp BP Sys/Dial Pulse Ox Last 24 Hr 98.2 F-98.7 F 56-73 18-20 90-107/46-52 96-98 GENERAL: The patient is awake, alert, and fully oriented, in no acute distress. LUNGS: Breath sounds equal, clear to auscultation bilaterally, no wheezes, no crackles, no accessory muscle use. HEART: Irregularly irregular. ABDOMEN: Obese, soft, nontender, nondistended, normoactive bowel sounds, no guarding, no rebound, no hepatosplenomegaly, no masses. EXTREMITIES: No pedal pulses. Ulcer of left 1st toe with necrosis of distal toe. Laboratory Results - last 24 hr 01/16/17 01/17/17 01/17/17 20:20 06:00 06:00 WBC 13.5 H RBC 3.60 L Hgb 10.3 L D Hct 30.4 L D MCV 84.2 MCHC 34.0 RDW 15.1 Plt Count 295 D MPV 7.2 L INR PTT (Actin FS) Sodium 136 Potassium 3.4 L Chloride 97 L Carbon Dioxide 26 Anion Gap 13 BUN 53 H Creatinine 2.6 H D POC Glucometer 250.72048 Random Glucose 181 H D Hemoglobin A1c % Calcium 8.1 L Phosphorus 3.3 Magnesium 1.3 L D Random Vancomycin Digoxin 1.1014 Blood Type Antibody Screen 01/17/17 01/17/17 01/17/17 06:00 06:00 06:00 WBC RBC Hgb Hct MCV MCHC RDW Plt Count MPV INR 1.87 H PTT (Actin FS) 36.3 H Sodium Potassium Chloride Carbon Dioxide Anion Gap BUN Creatinine POC Glucometer Random Glucose Hemoglobin A1c % Calcium Phosphorus Magnesium Random Vancomycin 6.890 Digoxin Blood Type A POSITIVE Antibody Screen Negative 01/17/17 01/17/17 06:00 06:50 WBC RBC Hgb Hct MCV MCHC RDW Plt Count MPV INR PTT (Actin FS) Sodium Potassium Chloride Carbon Dioxide Anion Gap BUN Creatinine POC Glucometer 196 Random Glucose Hemoglobin A1c % 9.4 H Calcium Phosphorus Magnesium Random Vancomycin Digoxin Blood Type Antibody Screen Active Medications Generic Name Dose Route Start Last Admin Trade Name Freq PRN Reason Stop Dose Admin Atorvastatin Calcium 80 mg 01/17/17 22:00 Lipitor - PO HS KATHLEEN Digoxin 0.125 mg 01/17/17 10:00 01/17/17 09:37 Lanoxin - PO 0.125 mg DAILY KATHLEEN Administration Heparin Sodium (Porcine) 1,000 unit 01/16/17 23:10 Heparin - IVPUSH PRN PRN Heparin Heparin Sodium (Porcine) 5,000 unit 01/16/17 23:10 Heparin - IVPUSH PRN PRN Heparin Heparin Sodium (Porcine) 25, 500 mls @ 20 mls/hr 01/16/17 23:15 01/17/17 02:50 000 unit/ Sodium Chloride IV 20 mls/hr TITR KATHLEEN Administration Protocol 1,000 UNIT/HR Sodium Chloride 1,000 mls @ 125 mls/hr 01/16/17 23:45 01/17/17 02:49 Normal Saline - IV 125 mls/hr ASDIR KATHLEEN Administration Insulin Aspart 1 vial 01/17/17 07:00 01/17/17 06:52 Novolog Vial Sliding Scale - SQ 2 units ACHS KATHLEEN Administration Protocol Sucralfate 1 gm 01/17/17 10:00 01/17/17 09:37 Carafate - PO 1 gm BID KATHLEEN Administration Torsemide 40 mg 01/17/17 06:00 01/17/17 06:50 Demadex - PO 40 mg BID@0600,1800 KATHLEEN Administration ASSESSMENT/PLAN: This is a 56-year-old man with a history of type 2 DM, a fib, HTN, stage 3 CKD, PUD, UGI bleed, bilateral leg DVTs who presented to the ER because his left 1st toenail fell off. 1. Infected diabetic ulcer of left foot with necrosis of left 1st toe - On Zosyn, Vancomycin - Podiatry consult appreciated - Vascular, infectious disease consults - Follow up wound and blood cultures - Oral anticoagulation held and heparin IV drip started in preparation for surgery 2. Acute kidney injury on stage 3 CKD - BUN, creatinine improving - Lisinopril, Aldactone held - Hold Demadex - Continue IV fluid - Urine studies pending - Nephrology consult 3. Type 2 DM, uncontrolled - Start Levemir - Continue Novolog sliding scale 4. HTN - Antihypertensive meds held secondary to AMY and hypotension 5. Permanent atrial fibrillation - Rate controlled - Continue Digoxin - Xarelto held and heparin IV drip started in anticipation of surgery 6. History of DVTs of both legs - On heparin IV drip 7. PUD, history of GI bleed - Restart Protonix (remain on PPI while on anticoagulation) and discontinue Carafate Visit type - Emergency Visit Emergency Visit: Yes ED Registration Date: 01/16/17 Care time: The patient presented to the Emergency Department on the above date and was hospitalized for further evaluation of their emergent condition. - New Patient This patient is new to me today: Yes Date on this admission: 01/17/17 - Critical Care Critical Care patient: No - Discharge Referral Referred to [facility] Med P.C.: No
[2017-01-17] MEDS: PANTOPRAZOLE 40 MG TABLET (FP) PO SCH (10:25)
[2017-01-17] MEDS: INSULIN SLIDING SCALE (NOVOLOG) 1 VIAL SQ SCH ×2 (11:26→16:43)
[2017-01-17 13:10] LABS: URINE APPEARANCE SLCLOUDY; URINE BILIRUBIN NEGATIVE (NEGATIVE); URINE BLOOD NEGATIVE (NEGATIVE); URINE COLOR LTYELLOW; URINE GLUCOSE (UA) 1+ (NEGATIVE); URINE KETONE NEGATIVE (NEGATIVE); URINE LEUK ESTERASE NEGATIVE (NEGATIVE); URINE NITRITE NEGATIVE (NEGATIVE); URINE PROTEIN NEGATIVE (NEGATIVE); URINE UROBILINOGEN NEGATIVE E.U./dl (0.2-1.0)
--- NOTE | 2017-01-17 13:18 | PN ---
Progress Note (short form) - Note Progress Note: ID Consult dictated Gangrene , great toe Cellulitis L LE Sepsis secondary to skin and soft tissue infection' Azotemia Surgical evaluation Empiric zosyn/ vanco, adjusted for azotemia
[2017-01-17 13:26] VITALS: BMI 39.2
--- NOTE | 2017-01-17 13:26 | CON.NEP ---
Consult Consult Specialty:: Nephrology Referred by:: Dr Armijo Reason for Consultation:: CKD - History of Present Illness History of Present Illness: his is a 56 yo M with PMH of poorly controlled IDDM,HTN, Afib, DVTs from unspecified clotting disorder on xarelto, HLD, PUD and mild CKD. Pt admitted with left 1st and 2nd metatarsal ulcers/gangrene. Asked to evaluate for azotemia Since admission the azotemia has improved off Lisinopril, Lasix and Spironolactone. Pt has been IVF as well as abx. Fe Na less than 1% No Proteinuria noted on the UA He denies prior history of CKD or of a Diabetic retinopathy No NSAID use No Dysuria + Nocturia + LE Edema Renal showed a lobulated left kidney without hydronephrosis Followed by Dr Lerma of cardiology at [facility] S/P AP and IVC Filter - History Source History Provided By: Patient, Medical Record - Past Medical History Cardio/Vascular: Yes: AFIB, HTN - Alcohol/Substance Use Hx Alcohol Use: No - Smoking History Smoking history: Unknown if ever smoked Have you smoked in the past 12 months: No If you are a former smoker, when did you quit?: 10 yrs ago Home Medications - Allergies Allergies/Adverse Reactions: Allergies Allergy/AdvReac Type Severity Reaction Status Date / Time No Known Allergies Allergy Verified 01/16/17 14:25 - Home Medications Home Medications: Ambulatory Orders Apixaban [Eliquis -] 10 mg PO BID tablet 10/29/16 Digoxin [Lanoxin -] 0.125 mg PO DAILY tablet 10/29/16 Furosemide [Lasix -] 40 mg PO BID@0600,1400 tablet 10/29/16 Insulin Sliding Scale [Novolog Vial Sliding Scale -] 1 vial SQ ACHS units 10/29 Spironolactone [Aldactone -] 25 mg PO BID tablet 10/29/16 Sucralfate [Carafate -] 1 gm PO BID tablet 10/29/16 Torsemide [Demadex -] 40 mg PO BID@0600,1800 tablet 10/29/16 Nephrology Consult - Height Height: 5 ft 10 in - Weight Weight: 273 lb 3 oz - BMI Body Mass Index (BMI): 39.2 - Lab Results CBC,BMP: CBC, BMP 01/17/17 06:00 01/17/17 06:00 Laboratory Tests 01/17/17 01/17/17 01/17/17 06:00 06:00 06:00 INR 1.87 H PTT (Actin FS) 36.3 H Random Vancomycin 6.890 Digoxin 1.1014 Laboratory Tests 10/27/16 10/28/16 10/29/16 06:00 06:00 06:00 Sodium Creatinine 1.5 H 1.3 1.2 01/17/17 06:00 Sodium 136 Creatinine U/A: Laboratory Tests 01/17/17 01/17/17 01:51 01:52 Urine Color Ltyellow Urine Appearance Slcloudy Urine pH 5.0 Ur Specific [place] Pending Urine Protein Negative Urine Glucose (UA) 1+ H Urine Ketones Negative Urine Blood Negative Urine Nitrite Negative Urine Bilirubin Negative Urine Urobilinogen Negative Ur Leukocyte Esterase Negative Ur Random Sodium 37 Urine Creatinine 134.0 Laboratory Tests 01/16/17 01/17/17 16:16 06:00 Magnesium 1.3 L D Total Bilirubin 0.6 D AST 16 ALT 14 D Alkaline Phosphatase 126 H Total Protein 8.7 H Albumin 3.0 L Anion Gap: Anion Gap Anion Gap 13 (8-16) 01/17/17 06:00 - Imaging Chest X-ray: Report Reviewed Ultrasound: Report Reviewed EKG: Other ( Fib with of 60-70) - Physical Examination Vital Signs: Vital Signs Temperature 98.0 F 01/17/17 08:40 Pulse Rate 68 01/17/17 09:37 Respiratory Rate 20 01/17/17 08:40 Blood Pressure 96/51 01/17/17 08:40 O2 Sat by Pulse Oximetry (%) 98 01/16/17 20:16 Cardiovascular: Yes: S1, S2, Other (SSEM). No: JVD Respiratory: Yes: CTA Bilaterally Gastrointestinal: Yes: Soft, Abdomen, Obese. No: Tenderness, Rebound Renal/: No: Bladder Distention Extremities: Yes: Other (Dressing of the left foot in place) Edema: Yes (Chronic LE changes) Neurological: Yes: Alert, Oriented Assessment/Plan Impression Acute on CKD improving on IV NS in pt with decreased BP and FeNA Hypokalemia and hypomagnesemia DFU and Gangrene of the LLE HTN now with relatively low BP DM HLD A Fib S/P DVTs in the past from a coagulopathy S/P IVC Filter S/P AP Plan Replace Mag and K IVF NS as ordered Empiric Abx as per ID and adjust dose as the renal function improves Continue to hold the diuretics and ACEi till azotemia stabilized IV Heparin as per protocol To optimize the renal fnx before considering angiogram Avoid nephrotoxic agents if at all possible including IV contrast NSAIDs etc at this time U Bladder US Urine for Protein/Cr ratio Rpt labs in am Thank You Will Follow Dr Paige
[2017-01-17] MEDS ORDERED: VANCOMYCIN 1 GRAM (PRE-DOCKED) 250 ML IVPB ONE (14:00)
[2017-01-17] MEDS ORDERED: POTASSIUM CHLORIDE TABS 20 MEQ TABLET.ER (FP) PO ONE (14:30)
[2017-01-17] MEDS ORDERED: MAGNESIUM SULF 50% (8.12 MEQ/2 ML-1 GM VIAL) IVPB ONE (14:30)
[2017-01-17] MEDS: PIPERACILLIN/TAZOB 2.25 GM 50 ML IVPB SCH (18:56)
[2017-01-17] MEDS: ATORVASTATIN CA 80 MG TABLET (FP) PO SCH (21:52)
[2017-01-17] MEDS: INSULIN DETEMIR 100 UNITS/ML MDV SQ SCH (21:52)
[2017-01-18] MEDS: SODIUM CHLORIDE 1,000 ML IV SCH ×3 (01:28→17:47)
[2017-01-18] MEDS: PIPERACILLIN/TAZOB 2.25 GM 50 ML IVPB SCH ×3 (01:29→17:38)
[2017-01-18] MEDS: HEPARIN - 25,000 UNIT in SODIUM CHLORIDE 495 ML IV SCH (01:33)
[2017-01-18] MEDS: INSULIN SLIDING SCALE (NOVOLOG) 1 VIAL SQ SCH ×3 (06:14→17:48)
[2017-01-18 08:18] LABS: MCH 28.4 pg (25.7-33.7); MCHC 33.5 g/dl (32.0-35.9); MEAN CELL VOLUME 84.7 fl (80-96); MEAN PLT VOLUME 7.5 fl (7.5-11.1); PLATELET COUNT 286 K/MM3 (134-434); RDW 15.1 % (11.9-15.9); WHITE BLOOD COUNT 12.2 K/mm3 (4.0-10.0)
[2017-01-18 08:41] LABS: MAGNESIUM 1.4 mg/dL (1.8-2.4)
[2017-01-18 08:43] LABS: CALCIUM 8.2 mg/dL (8.5-10.1)
[2017-01-18 08:45] LABS: COCKROFT - GAULT 85.99; CREATININE 1.7 mg/dL (0.7-1.3)
--- NOTE | 2017-01-18 09:34 | PN ---
Progress Note, Physician History of Present Illness: Awake, alert No complaints Afebrile WBC improved Renal function improving Cultures pending - Current Medication List Current Medications: Active Medications Atorvastatin Calcium (Lipitor -) 80 mg PO HS [facility] Last Admin: 01/17/17 21:52 Dose: 80 mg Digoxin (Lanoxin -) 0.125 mg PO DAILY [facility] Last Admin: 01/17/17 09:37 Dose: 0.125 mg Heparin Sodium (Porcine) (Heparin -) 1,000 unit IVPUSH PRN PRN PRN Reason: Heparin Heparin Sodium (Porcine) (Heparin -) 5,000 unit IVPUSH PRN PRN PRN Reason: Heparin Last Admin: 01/17/17 10:10 Dose: 5,000 unit Heparin Sodium (Porcine) 25, (000 unit/ Sodium Chloride) 500 mls @ 20 mls/hr IV TITR KATHLEEN; 1,000 UNIT/HR PRN Reason: Protocol Last Admin: 01/18/17 01:33 Dose: 23 mls/hr Sodium Chloride (Normal Saline -) 1,000 mls @ 125 mls/hr IV ASDIR [facility] Last Admin: 01/18/17 01:28 Dose: 125 mls/hr Piperacillin Sod/Tazobactam Sod (Zosyn 2.25gm Ivpb (Pre-Docked)) 50 mls @ 100 mls/hr IVPB Q8H-IV KATHLEEN PRN Reason: Protocol Last Admin: 01/18/17 01:29 Dose: 100 mls/hr Insulin Aspart (Novolog Vial Sliding Scale -) 1 vial SQ TIDAC [facility] PRN Reason: Protocol Last Admin: 01/18/17 06:14 Dose: Not Given Insulin Detemir (Levemir Vial) 10 units SQ HS [facility] Last Admin: 01/17/17 21:52 Dose: 10 units Pantoprazole Sodium (Protonix -) 40 mg PO DAILY [facility] Last Admin: 01/17/17 10:25 Dose: 40 mg - Objective Vital Signs: Vital Signs Temperature 98.5 F 01/18/17 06:00 Pulse Rate 64 01/18/17 06:00 Respiratory Rate 20 01/18/17 06:00 Blood Pressure 91/53 01/18/17 06:00 O2 Sat by Pulse Oximetry (%) 98 01/16/17 20:16 Constitutional: Yes: No Distress Eyes: Yes: Conjunctiva Clear Cardiovascular: Yes: Regular Rate and Rhythm, S1, S2 Respiratory: Yes: CTA Bilaterally Gastrointestinal: Yes: Normal Bowel Sounds, Soft. No: Tenderness Extremities: Yes: Other (+ gangrene of L great toe, purulent drainage + swelling 2nd toe. decreased erythema/warmth L LE) Labs: CBC, BMP 01/18/17 06:30 01/18/17 06:30 INR, PTT INR 1.87 (0.82-1.09) H 01/17/17 06:00 Assessment/Plan Gangrene L great toe Cellulitis L 2nd toe Leukocytosis-improved Azotemia-improved Continue zosyn Redose vancomycin Surgical follow up
[2017-01-18] MEDS ORDERED: VANCOMYCIN 1 GRAM (PRE-DOCKED) 250 ML IVPB ONE (10:30)
--- NOTE | 2017-01-18 10:37 | EKG ---
Test Reason : Blood Pressure : / mmHG Vent. Rate : 064 BPM Atrial Rate : 312 BPM P-R Int : 000 ms QRS Dur : 110 ms QT Int : 406 ms P-R-T Axes : 000 -21 -51 degrees QTc Int : 418 ms ATRIAL FIBRILLATION LOW VOLTAGE QRS CANNOT RULE OUT INFERIOR INFARCT (CITED ON OR BEFORE 24-OCT-2016) CANNOT RULE OUT ANTERIOR INFARCT (CITED ON OR BEFORE 04-NOV-2016) ABNORMAL ECG WHEN COMPARED WITH ECG OF 04-NOV-2016 16:26, NO SIGNIFICANT CHANGE WAS FOUND Confirmed by AFSHAN GARZA, SHANEL ([id number]) on 01/18/2017 10:37:31 AM Referred By: Katelynn GUSMAN Confirmed By:SHANEL CAVANAUGH MD
--- NOTE | 2017-01-18 10:45 | EKG ---
Test Reason : Blood Pressure : / mmHG Vent. Rate : 084 BPM Atrial Rate : 079 BPM P-R Int : 000 ms QRS Dur : 108 ms QT Int : 354 ms P-R-T Axes : 000 -54 000 degrees QTc Int : 418 ms ATRIAL FIBRILLATION LEFT AXIS DEVIATION LOW VOLTAGE QRS CANNOT RULE OUT INFERIOR INFARCT (CITED ON OR BEFORE 24-OCT-2016) POSSIBLE ANTEROLATERAL INFARCT (CITED ON OR BEFORE 04-NOV-2016) POOR R WAVE PROGRESSION ABNORMAL ECG WHEN COMPARED WITH ECG OF 04-NOV-2016 16:26, NO SIGNIFICANT CHANGE WAS FOUND Confirmed by SHANEL CAVANAUGH MD ([id number]) on 01/18/2017 10:44:47 AM Referred By: Confirmed By:SHANEL CAVANAUGH MD
[2017-01-18] MEDS: DIGOXIN 0.125 MG TABLET (FP) PO SCH (10:47)
[2017-01-18] MEDS: PANTOPRAZOLE 40 MG TABLET (FP) PO SCH (10:47)
[2017-01-18] MEDS: HEPARIN NA (PORCINE) 5,000 UNITS/ML 1ML VIAL IVPUSH PRN ×2 (11:16→21:38)
--- NOTE | 2017-01-18 11:35 | PN ---
Progress Note (short form) - Note Progress Note: Podiatry: Seen and evaluated at bedside, NAD. Pain controlled, denies F/V/N/C/SOB/CP. Afebrile, VSS. ELKE: L foot: pedal pulses non-palpable, TG wnl, CFT absent to great toe. There is a distal tuft necrotic ulcer great toe with malodor, no probing deep to bone, no purulence, expressed. No fluctuance, no ascending cellulitis, no signs of acute infection. WBC: 12.2 L foot XR: no destructive process seen Blood Cx: no growth x 24 hrs Imp: 56 year old IDDM with L great toe gangrene 1. IV abx per ID 2. DSD L foot 3. Needs vascular evaluation. Likely will need vascular intervention. Once vascular cleared will perform L great toe partial amputation. On heparin for AC. Discussed risks, benefits and alternatives to sx at length with pt. 4. Will follow. Paola Elias DPM
--- NOTE | 2017-01-18 13:21 | CONS ---
DATE OF CONSULTATION: DATE OF DICTATION: 01/18/2017 A 56-year-old male who was evaluated for gangrene of the left great toe. The patient states he has had an ulceration on the left foot for approximately 3 months. He recently noted that his toenail on the great toe fell off. He presented to the emergency room, where he was found to have gangrene of the left great toe and swelling of the left 2nd toe. He was empirically treated with vancomycin and Zosyn. He has no complaints of pain. He denies any associated fever or chills. Patient has a history of diabetes mellitus and chronic renal insufficiency. Past medical history positive for atrial fibrillation, hypertension, diabetes mellitus, chronic renal insufficiency. PAST SURGICAL HISTORY: Status post appendectomy, IVC filter for lower extremity DVT. No known allergies. MEDICATIONS: Eliquis, Lanoxin, Lasix, Aldactone, Carafate, Demadex. SOCIAL HISTORY: Resides in the community. He is a nonsmoker, nondrinker. SYSTEMS REVIEW: Neurologic: No loss of consciousness, seizure activity, focal weakness. Cardiac: Negative chest pain or palpitations. Respiratory: Negative cough or sputum production. Gastrointestinal: Negative vomiting or diarrhea. Genitourinary: Negative for urinary tract infection. LABORATORY DATA: White count on admission 17, presently 13.5, hematocrit 30.4, and platelet count 295, BUN 53, creatinine 2.6. Cultures are pending. PHYSICAL EXAMINATION: General: He is awake and alert; he is in no acute distress and is not acutely toxic appearing. Vital Signs: Temperature 98.0. Blood pressure 96/59. Pulse 68, regular. Respirations 20 per minute. Eyes: Sclerae anicteric. Heart Sounds: S1, S2. Irregular. Lungs: Clear. Abdomen: Soft. No tenderness elicited. No mass, rebound or rigidity. Extremities: Examination of the left foot, there is dry gangrene involving the distal aspect of the left great toe with malodorous drainage. There is diffuse swelling of the left 2nd toe with erythema. There is slight erythema and warmth extending to the foot and distal left lower extremity. No crepitus, fluctuance, or lymphangitic streaking. IMPRESSION: 1. Gangrene of the left great toe. 2. Cellulitis of the left 2nd toe and left lower extremity. 3. Possible sepsis secondary to skin and soft tissue infection. 4. Azotemia. Surgical evaluation. Await cultures. Empiric antibiotic coverage with vancomycin and Zosyn pending culture results. Adjust antibiotics for renal insufficiency. Will follow. Thank you for the kind referral. ESVIN NOEL M.D. [id number]
--- NOTE | 2017-01-18 14:36 | PN ---
Teaching Attending Note Name of Resident: Stephanie Mathew ATTENDING PHYSICIAN STATEMENT I saw and evaluated the patient. I reviewed the resident's note and discussed the case with the resident. I agree with the resident's findings and plan as documented. SUBJECTIVE: No complaints. OBJECTIVE: Vital Signs Period Temp Pulse Resp BP Sys/Dial Pulse Ox Last 24 Hr 98.1 F-99.2 F 64-89 16-20 83-125/48-58 GENERAL: The patient is awake, alert, and fully oriented, in no acute distress. LUNGS: Breath sounds equal, clear to auscultation bilaterally, no wheezes, no crackles, no accessory muscle use. HEART: Irregularly irregular. ABDOMEN: Obese, soft, nontender, nondistended, normoactive bowel sounds, no guarding, no rebound, no hepatosplenomegaly, no masses. EXTREMITIES: No pedal pulses. Necrotic ulcer of left 1st toe. ASSESSMENT AND PLAN: This is a 56-year-old man with a history of type 2 DM, a fib, HTN, stage 3 CKD, PUD, UGI bleed, bilateral leg DVTs who presented to the ER because his left 1st toenail fell off. 1. Infected necrotic diabetic ulcer of left 1st toe - Afebrile, WBC improving - Continue Zosyn, Vancomycin - Vascular consult - Blood cultures negative - Follow up wound culture - Oral anticoagulation held and heparin IV drip started in preparation for surgery 2. Acute kidney injury on stage 3 CKD - BUN, creatinine improving - Lisinopril, Aldactone, Demadex held - Continue IV fluid - Urine studies pending 3. Type 2 DM, uncontrolled - Continue Levemir, Novolog sliding scale 4. HTN - Antihypertensive meds held secondary to AMY and hypotension 5. Permanent atrial fibrillation - Rate controlled - Continue Digoxin - Xarelto held and heparin IV drip started in anticipation of surgery 6. History of DVTs of both legs - On heparin IV drip 7. PUD, history of GI bleed - Continue Protonix (should remain on PPI while on anticoagulation)
[2017-01-18] MEDS ORDERED: MAGNESIUM SULF 50% (8.12 MEQ/2 ML-1 GM VIAL) IVPB ONE (15:22)
--- NOTE | 2017-01-18 15:22 | PN ---
Progress Note, Physician History of Present Illness: Pt seen and examined at bedside. He is going for a bone scan. He denies shortness of breath. - Current Medication List Current Medications: Active Medications Atorvastatin Calcium (Lipitor -) 80 mg PO HS [facility] Last Admin: 01/17/17 21:52 Dose: 80 mg Digoxin (Lanoxin -) 0.125 mg PO DAILY [facility] Last Admin: 01/18/17 10:47 Dose: 0.125 mg Heparin Sodium (Porcine) (Heparin -) 1,000 unit IVPUSH PRN PRN PRN Reason: Heparin Last Admin: 01/18/17 11:16 Dose: 1,000 unit Heparin Sodium (Porcine) (Heparin -) 5,000 unit IVPUSH PRN PRN PRN Reason: Heparin Last Admin: 01/17/17 10:10 Dose: 5,000 unit Heparin Sodium (Porcine) 25, (000 unit/ Sodium Chloride) 500 mls @ 20 mls/hr IV TITR KATHLEEN; 1,000 UNIT/HR PRN Reason: Protocol Last Titration: 01/18/17 11:08 Dose: 1,250 unit/hr Sodium Chloride (Normal Saline -) 1,000 mls @ 125 mls/hr IV ASDIR [facility] Last Admin: 01/18/17 01:28 Dose: 125 mls/hr Piperacillin Sod/Tazobactam Sod (Zosyn 2.25gm Ivpb (Pre-Docked)) 50 mls @ 100 mls/hr IVPB Q8H-IV [facility] PRN Reason: Protocol Last Admin: 01/18/17 10:47 Dose: 100 mls/hr Insulin Aspart (Novolog Vial Sliding Scale -) 1 vial SQ TIDAC [facility] PRN Reason: Protocol Last Admin: 01/18/17 11:48 Dose: 4 units Insulin Detemir (Levemir Vial) 10 units SQ HS [facility] Last Admin: 01/17/17 21:52 Dose: 10 units Pantoprazole Sodium (Protonix -) 40 mg PO DAILY [facility] Last Admin: 01/18/17 10:47 Dose: 40 mg - Objective Vital Signs: Vital Signs Temperature 98.4 F 01/18/17 14:55 Pulse Rate 72 01/18/17 14:55 Respiratory Rate 18 01/18/17 14:55 Blood Pressure 108/66 01/18/17 14:55 O2 Sat by Pulse Oximetry (%) 98 01/16/17 20:16 Constitutional: Yes: Calm Eyes: Yes: Conjunctiva Clear HENT: Yes: Atraumatic Neck: Yes: Supple Cardiovascular: Yes: S1, S2 Respiratory: Yes: CTA Bilaterally Gastrointestinal: Yes: Soft Genitourinary: Yes: WNL Musculoskeletal: Yes: WNL Edema: LLE: Trace, RLE: Trace Wound/Incision: Yes: Other (left toe gangrene) Neurological: Yes: Oriented Psychiatric: Yes: Oriented Labs: CBC, BMP 01/18/17 06:30 01/18/17 06:30 INR, PTT INR 1.87 (0.82-1.09) H 01/17/17 06:00 Assessment/Plan Current Medications Generic Name Dose Route Start Last Admin Trade Name Freq PRN Reason Stop Dose Admin Atorvastatin Calcium 80 mg 01/17/17 22:00 01/17/17 21:52 Lipitor - PO 80 mg HS KATHLEEN Administration Digoxin 0.125 mg 01/17/17 10:00 01/18/17 10:47 Lanoxin - PO 0.125 mg DAILY KATHLEEN Administration Heparin Sodium (Porcine) 1,000 unit 01/16/17 23:10 01/18/17 11:16 Heparin - IVPUSH 1,000 unit PRN PRN Administration Heparin Heparin Sodium (Porcine) 5,000 unit 01/16/17 23:10 01/17/17 10:10 Heparin - IVPUSH 5,000 unit PRN PRN Administration Heparin Heparin Sodium (Porcine) 25, 500 mls @ 20 mls/hr 01/16/17 23:15 01/18/17 11:08 000 unit/ Sodium Chloride IV 1,250 unit/hr TITR KATHLEEN Titration Protocol 1,000 UNIT/HR Sodium Chloride 1,000 mls @ 125 mls/hr 01/16/17 23:45 01/18/17 12:17 Normal Saline - IV 125 mls/hr ASDIR KATHLEEN Administration Piperacillin Sod/Tazobactam Sod 50 mls @ 100 mls/hr 01/17/17 18:00 01/18/17 10: 47 Zosyn 2.25gm Ivpb (Pre-Docked) IVPB 100 mls/hr Q8H-IV KATHLEEN Administration Protocol Insulin Aspart 1 vial 01/17/17 11:00 01/18/17 11:48 Novolog Vial Sliding Scale - SQ 4 units TIDAC KATHLEEN Administration Protocol Insulin Detemir 10 units 01/17/17 22:00 01/17/17 21:52 Levemir Vial SQ 10 units HS KATHLEEN Administration Pantoprazole Sodium 40 mg 01/17/17 10:30 01/18/17 10:47 Protonix - PO 40 mg DAILY KATHLEEN Administration Impression 1. CKD 2. AMY 3. hypomagnesemia 4. DFR 5. left toe gangrene 6. HTN 7. a-fib 8. hx DVT and IVC filter 9. DM 10. hyperlipidemia Plan - renal function is improving - decrease rate of IV fluids - repeat labs in am - lesion in kidney will need further eval - abx per ID - will follow Dr Gonzalez
--- NOTE | 2017-01-18 15:47 | PN ---
Physical Exam: SUBJECTIVE: Patient seen and examined by me at bedside. No overnight events noted. Patient offers no complaints. Otherwise, patient denies fever, chills, nausea, vomiting, chest pain, palpitations, shortness of breath. OBJECTIVE: Vital Signs Period Temp Pulse Resp BP Sys/Dial Pulse Ox Last 24 Hr 98.1 F-99.2 F 64-89 16-20 83-125/48-66 GENERAL: The patient is awake, alert, and fully oriented, in no acute distress. LUNGS: Breath sounds equal, clear to auscultation bilaterally, no wheezes, no crackles, no accessory muscle use. HEART: Regular rate and rhythm, S1, S2 without murmur, rub or gallop. ABDOMEN: Soft, nontender, nondistended, normoactive bowel sounds, no guarding, no rebound, no masses. EXTREMITIES: Non palpable pedal pulses of left foot. Necrosis and Gangrene of first left hallux with swelling and erythema of second toe Laboratory Results - last 24 hr 01/17/17 01/17/17 01/17/17 01:51 14:45 16:05 WBC RBC Hgb Hct MCV MCHC RDW Plt Count MPV PTT (Actin FS) 53.9 H D Sodium Potassium Chloride Carbon Dioxide Anion Gap BUN Creatinine POC Glucometer Random Glucose Calcium Magnesium Ur Specific Wanda <= 1.005 U Random Total Protein 9 Urine Creatinine 38.0 Protein/Creatinin Ratio 0.236 Random Vancomycin 01/17/17 01/17/17 01/18/17 16:40 21:51 06:13 WBC RBC Hgb Hct MCV MCHC RDW Plt Count MPV PTT (Actin FS) Sodium Potassium Chloride Carbon Dioxide Anion Gap BUN Creatinine POC Glucometer 232 221 134 Random Glucose Calcium Magnesium Ur Specific Wanda U Random Total Protein Urine Creatinine Protein/Creatinin Ratio Random Vancomycin 01/18/17 01/18/17 01/18/17 06:30 06:30 06:30 WBC 12.2 H RBC 3.48 L Hgb 9.9 L Hct 29.5 L MCV 84.7 MCHC 33.5 RDW 15.1 Plt Count 286 MPV 7.5 PTT (Actin FS) 44.1 H Sodium 138 Potassium 3.9 Chloride 104 Carbon Dioxide 24 Anion Gap 10 BUN 36 H D Creatinine 1.7 H D POC Glucometer Random Glucose 136 H D Calcium 8.2 L Magnesium Ur Specific Wanda U Random Total Protein Urine Creatinine Protein/Creatinin Ratio Random Vancomycin 01/18/17 06:30 WBC RBC Hgb Hct MCV MCHC RDW Plt Count MPV PTT (Actin FS) Sodium Potassium Chloride Carbon Dioxide Anion Gap BUN Creatinine POC Glucometer Random Glucose Calcium Magnesium 1.4 L Ur Specific Wanda U Random Total Protein Urine Creatinine Protein/Creatinin Ratio Random Vancomycin 9.175 Active Medications Generic Name Dose Route Start Last Admin Trade Name Freq PRN Reason Stop Dose Admin Atorvastatin Calcium 80 mg 01/17/17 22:00 01/17/17 21:52 Lipitor - PO 80 mg HS KATHLEEN Administration Digoxin 0.125 mg 01/17/17 10:00 01/18/17 10:47 Lanoxin - PO 0.125 mg DAILY KATHLEEN Administration Heparin Sodium (Porcine) 1,000 unit 01/16/17 23:10 01/18/17 11:16 Heparin - IVPUSH 1,000 unit PRN PRN Administration Heparin Heparin Sodium (Porcine) 5,000 unit 01/16/17 23:10 01/17/17 10:10 Heparin - IVPUSH 5,000 unit PRN PRN Administration Heparin Heparin Sodium (Porcine) 25, 500 mls @ 20 mls/hr 01/16/17 23:15 01/18/17 11:08 000 unit/ Sodium Chloride IV 1,250 unit/hr TITR KATHLEEN Titration Protocol 1,000 UNIT/HR Sodium Chloride 1,000 mls @ 125 mls/hr 01/16/17 23:45 01/18/17 01:28 Normal Saline - IV 125 mls/hr ASDIR KATHLEEN Administration Piperacillin Sod/Tazobactam Sod 50 mls @ 100 mls/hr 01/17/17 18:00 01/18/17 10: 47 Zosyn 2.25gm Ivpb (Pre-Docked) IVPB 100 mls/hr Q8H-IV KATHLEEN Administration Protocol Insulin Aspart 1 vial 01/17/17 11:00 01/18/17 11:48 Novolog Vial Sliding Scale - SQ 4 units TIDAC KATHLEEN Administration Protocol Insulin Detemir 10 units 01/17/17 22:00 01/17/17 21:52 Levemir Vial SQ 10 units HS KATHLEEN Administration Pantoprazole Sodium 40 mg 01/17/17 10:30 01/18/17 10:47 Protonix - PO 40 mg DAILY KATHLEEN Administration Foot X-ray (01/16/17): No bone destruction. Will need Three phase bone scan Duplex Of Bilateral Extremities (01/16/17): No DVT's Chest X-ray (01/17/17): No acute process Bladder/Renal U/S (01/17/17): Mass-like density in the left kidney ASSESSMENT/PLAN: Patient is a 56 year old male with a PMHx of DM II, A.Fib, HTN, CKD stage 3, peptic ulcer disease, Upper GI bleed, bilateral DVT's who presented because of left Hallux toenail falling off. Patient's Hallux found to be gangrenous and necrotic as well as with the second toe. Patient admitted for further monitoring and management. Gangrene and Necrosis of left Hallux and Second toe -Likely from diabetic ulcer -Will need three phase bone scan to rule out osteomyelitis -Zosyn 2.25mg IV Q8H day #3 -Vancomycin 250mg renally dosed. Vanc trough -Blood cultures and wound cultures negative -Podiatry following and will require partial amputation -Vascular consult placed -Oral AC held and now on Heparin for surgery/procedure prep Acute on Chronic Renal Failure- Improving -Stage 3 -BUN/Cr 36/1.7 -Lisinopril, Aldactone, and Demadex on hold -Continue IV NS @80mls/hr -FENa 1.2% -Nephrology on board -Daily BMP IDDM II -Continue Levemir 10 units evening -ISS -BGM HTN -BP meds on hold due to AMY and hypotension -Continue to monitor BP Atrial Fibrillation- controlled -Continue Digoxin -Xarelto on hold due to anticipated surgery Hx of Bilateral DVT's -On IV Heparin Drip Peptic Ulcer Disease -Continue Protonix F/E/N -IV NS @80mls/hr -Electrolytes wnl -Diabetic/sodium controlled diet Prophylaxis -Heparin drip for DVT -Protonix for GI Disposition -Vascular consult for evauation -Will need to rule out Osteomyelitis with bone scan Visit type - Emergency Visit Emergency Visit: Yes ED Registration Date: 01/16/17 Care time: The patient presented to the Emergency Department on the above date and was hospitalized for further evaluation of their emergent condition. - New Patient This patient is new to me today: Yes Date on this admission: 01/18/17 - Critical Care Critical Care patient: No
[2017-01-18] MEDS ORDERED: MAGNESIUM SULF 50% (8.12 MEQ/2 ML-1 GM VIAL) ONE (17:21)
[2017-01-18] MEDS: ATORVASTATIN CA 80 MG TABLET (FP) PO SCH (22:55)
[2017-01-18] MEDS: INSULIN DETEMIR 100 UNITS/ML MDV SQ SCH (22:56)
[2017-01-19] MEDS: HEPARIN - 25,000 UNIT in SODIUM CHLORIDE 495 ML IV SCH ×3 (01:38→23:15)
[2017-01-19] MEDS: PIPERACILLIN/TAZOB 2.25 GM 50 ML IVPB SCH ×3 (01:40→17:31)
[2017-01-19] MEDS: SODIUM CHLORIDE 1,000 ML IV SCH ×2 (01:44→17:31)
[2017-01-19] MEDS: HEPARIN NA (PORCINE) 5,000 UNITS/ML 1ML VIAL IVPUSH PRN (03:39)
[2017-01-19] MEDS: INSULIN SLIDING SCALE (NOVOLOG) 1 VIAL SQ SCH ×3 (06:50→17:31)
[2017-01-19 07:52] LABS: MCH 28.3 pg (25.7-33.7); MCHC 33.1 g/dl (32.0-35.9); MEAN CELL VOLUME 85.4 fl (80-96); MEAN PLT VOLUME 7.1 fl (7.5-11.1); PLATELET COUNT 211 K/MM3 (134-434); RDW 15.3 % (11.9-15.9); WHITE BLOOD COUNT 8.7 K/mm3 (4.0-10.0)
--- NOTE | 2017-01-19 09:21 | PN ---
Progress Note (short form) - Note Progress Note: Podiatry Brief Note: Pt seen and evaluated at bedside, NAD. Has left distal great toe gangrene, requires partial amputation great toe. Dr. Woods evaluated the patient yesterday, needs improvement in BUN/Cr prior to angiogram. Once cleared by vascular, will proceed with partial amputation of great toe. Local wound care for now. Paola Elias DPM
[2017-01-19] MEDS: PANTOPRAZOLE 40 MG TABLET (FP) PO SCH (09:29)
[2017-01-19] MEDS: DIGOXIN 0.125 MG TABLET (FP) PO SCH (09:29)
[2017-01-19 10:23] LABS: CALCIUM 7.7 mg/dL (8.5-10.1); COCKROFT - GAULT 106.81; CREATININE 1.4 mg/dL (0.7-1.3); MAGNESIUM 1.7 mg/dL (1.8-2.4)
--- NOTE | 2017-01-19 10:35 | PN ---
Progress Note (short form) - Note Progress Note: Vascular surgery Pt seen and examined. Gangrene of left great toe with abscess No palpable pulses. Will need angio prior to amputation of toes. The gangrene has been there for some time. Awaiting Cr to stabalize before doing angio. Awaiting Cr result for today Darryl Woods DO
--- NOTE | 2017-01-19 11:20 | PN ---
Progress Note (short form) - Note Progress Note: Vascular Surgery Cr coming down nicely. Now 1.4. Will do angiogram in am. Hold IV heparin at 9am. Will repeat bmp in am Darryl Woods DO
--- NOTE | 2017-01-19 13:33 | PN ---
Progress Note, Physician History of Present Illness: Pt seen and examined at bedside. He is awake and alert. He denies shortness of breath. - Current Medication List Current Medications: Active Medications Atorvastatin Calcium (Lipitor -) 80 mg PO HS KATHLEEN Last Admin: 01/18/17 22:55 Dose: 80 mg Digoxin (Lanoxin -) 0.125 mg PO DAILY KATHLEEN Last Admin: 01/19/17 09:29 Dose: 0.125 mg Heparin Sodium (Porcine) (Heparin -) 1,000 unit IVPUSH PRN PRN PRN Reason: Heparin Last Admin: 01/19/17 03:39 Dose: 1,000 unit Heparin Sodium (Porcine) (Heparin -) 5,000 unit IVPUSH PRN PRN PRN Reason: Heparin Last Admin: 01/17/17 10:10 Dose: 5,000 unit Heparin Sodium (Porcine) 25, (000 unit/ Sodium Chloride) 500 mls @ 20 mls/hr IV TITR KATHLEEN; 1,000 UNIT/HR PRN Reason: Protocol Last Titration: 01/19/17 09:45 Dose: 1,550 unit/hr Piperacillin Sod/Tazobactam Sod (Zosyn 2.25gm Ivpb (Pre-Docked)) 50 mls @ 100 mls/hr IVPB Q8H-IV KATHLEEN PRN Reason: Protocol Last Admin: 01/19/17 09:29 Dose: 100 mls/hr Sodium Chloride (Normal Saline -) 1,000 mls @ 80 mls/hr IV ASDIR [facility] Last Admin: 01/19/17 01:44 Dose: 80 mls/hr Insulin Aspart (Novolog Vial Sliding Scale -) 1 vial SQ TIDAC KATHLEEN PRN Reason: Protocol Last Admin: 01/19/17 11:45 Dose: Not Given Insulin Detemir (Levemir Vial) 10 units SQ HS [facility] Last Admin: 01/18/17 22:56 Dose: 10 units Pantoprazole Sodium (Protonix -) 40 mg PO DAILY [facility] Last Admin: 01/19/17 09:29 Dose: 40 mg - Objective Vital Signs: Vital Signs Temperature 97.5 F L 01/19/17 06:25 Pulse Rate 65 01/19/17 09:29 Respiratory Rate 20 01/19/17 06:25 Blood Pressure 108/64 01/19/17 06:25 O2 Sat by Pulse Oximetry (%) 98 01/16/17 20:16 Constitutional: Yes: Calm Eyes: Yes: Conjunctiva Clear HENT: Yes: Atraumatic Neck: Yes: Supple Cardiovascular: Yes: S1, S2 Respiratory: Yes: CTA Bilaterally Gastrointestinal: Yes: Normal Bowel Sounds, Soft, Abdomen, Obese Genitourinary: Yes: WNL Musculoskeletal: Yes: WNL Edema: Yes Edema: LLE: Trace, RLE: Trace Neurological: Yes: Oriented Psychiatric: Yes: Oriented Labs: CBC, BMP 01/19/17 06:20 01/19/17 06:20 INR, PTT INR 1.87 (0.82-1.09) H 01/17/17 06:00 Problem List - Problems (1) Diabetes mellitus Code(s): E11.9 - TYPE 2 DIABETES MELLITUS WITHOUT COMPLICATIONS (2) Gangrene of toe of left foot Code(s): I96 - GANGRENE, NOT ELSEWHERE CLASSIFIED (3) HTN (hypertension) Code(s): I10 - ESSENTIAL (PRIMARY) HYPERTENSION (4) Acute renal insufficiency Code(s): N28.9 - DISORDER OF KIDNEY AND URETER, UNSPECIFIED Assessment/Plan Current Medications Generic Name Dose Route Start Last Admin Trade Name Freq PRN Reason Stop Dose Admin Atorvastatin Calcium 80 mg 01/17/17 22:00 01/18/17 22:55 Lipitor - PO 80 mg HS KATHLEEN Administration Digoxin 0.125 mg 01/17/17 10:00 01/19/17 09:29 Lanoxin - PO 0.125 mg DAILY KATHLEEN Administration Heparin Sodium (Porcine) 1,000 unit 01/16/17 23:10 01/19/17 03:39 Heparin - IVPUSH 1,000 unit PRN PRN Administration Heparin Heparin Sodium (Porcine) 5,000 unit 01/16/17 23:10 01/17/17 10:10 Heparin - IVPUSH 5,000 unit PRN PRN Administration Heparin Heparin Sodium (Porcine) 25, 500 mls @ 20 mls/hr 01/16/17 23:15 01/19/17 09:45 000 unit/ Sodium Chloride IV 1,550 unit/hr TITR KATHLEEN Titration Protocol 1,000 UNIT/HR Piperacillin Sod/Tazobactam Sod 50 mls @ 100 mls/hr 01/17/17 18:00 01/19/17 09: 29 Zosyn 2.25gm Ivpb (Pre-Docked) IVPB 100 mls/hr Q8H-IV KATHLEEN Administration Protocol Sodium Chloride 1,000 mls @ 80 mls/hr 01/18/17 15:22 01/19/17 01:44 Normal Saline - IV 80 mls/hr ASDIR KATHLEEN Administration Insulin Aspart 1 vial 01/17/17 11:00 01/19/17 11:45 Novolog Vial Sliding Scale - SQ Not Given TIDAC KATHLEEN Protocol Insulin Detemir 10 units 01/17/17 22:00 01/18/17 22:56 Levemir Vial SQ 10 units HS KATHLEEN Administration Pantoprazole Sodium 40 mg 01/17/17 10:30 01/19/17 09:29 Protonix - PO 40 mg DAILY KATHLEEN Administration Impression 1. CKD 2. AMY 3. hypomagnesemia 4. DFU 5. left toe gangrene 6. HTN 7. a-fib 8. hx DVT and IVC filter 9. DM 10. hyperlipidemia Plan - renal function continue to improve - will also add mucomyst before angio - cont with fluids - repeat labs in am - replace magnesium - lesion in kidney will need further eval - abx per ID - will follow Dr Gonzalez
--- NOTE | 2017-01-19 13:44 | PN ---
Progress Note, Physician History of Present Illness: OOB in chair No c/o foot pain No fever/ chills Tolerating antibiotics - Current Medication List Current Medications: Active Medications Atorvastatin Calcium (Lipitor -) 80 mg PO HS KATHLEEN Last Admin: 01/18/17 22:55 Dose: 80 mg Digoxin (Lanoxin -) 0.125 mg PO DAILY KATHLEEN Last Admin: 01/19/17 09:29 Dose: 0.125 mg Heparin Sodium (Porcine) (Heparin -) 1,000 unit IVPUSH PRN PRN PRN Reason: Heparin Last Admin: 01/19/17 03:39 Dose: 1,000 unit Heparin Sodium (Porcine) (Heparin -) 5,000 unit IVPUSH PRN PRN PRN Reason: Heparin Last Admin: 01/17/17 10:10 Dose: 5,000 unit Heparin Sodium (Porcine) 25, (000 unit/ Sodium Chloride) 500 mls @ 20 mls/hr IV TITR KATHLEEN; 1,000 UNIT/HR PRN Reason: Protocol Last Titration: 01/19/17 09:45 Dose: 1,550 unit/hr Piperacillin Sod/Tazobactam Sod (Zosyn 2.25gm Ivpb (Pre-Docked)) 50 mls @ 100 mls/hr IVPB Q8H-IV KATHLEEN PRN Reason: Protocol Last Admin: 01/19/17 09:29 Dose: 100 mls/hr Sodium Chloride (Normal Saline -) 1,000 mls @ 80 mls/hr IV ASDIR [facility] Last Admin: 01/19/17 01:44 Dose: 80 mls/hr Insulin Aspart (Novolog Vial Sliding Scale -) 1 vial SQ TIDAC KATHLEEN PRN Reason: Protocol Last Admin: 01/19/17 11:45 Dose: Not Given Insulin Detemir (Levemir Vial) 10 units SQ HS [facility] Last Admin: 01/18/17 22:56 Dose: 10 units Non-Formulary Medication (Patient's Own Med) 1,200 each PO BID [facility] Stop: 01/21/17 10:01 Pantoprazole Sodium (Protonix -) 40 mg PO DAILY [facility] Last Admin: 01/19/17 09:29 Dose: 40 mg - Objective Vital Signs: Vital Signs Temperature 97.5 F L 01/19/17 06:25 Pulse Rate 65 01/19/17 09:29 Respiratory Rate 20 01/19/17 06:25 Blood Pressure 108/64 01/19/17 06:25 O2 Sat by Pulse Oximetry (%) 98 01/16/17 20:16 Constitutional: Yes: No Distress Eyes: Yes: Conjunctiva Clear Cardiovascular: Yes: Regular Rate and Rhythm, S1, S2 Respiratory: Yes: CTA Bilaterally Gastrointestinal: Yes: Normal Bowel Sounds, Soft. No: Tenderness Extremities: Yes: Other (+gangrene of great toe, swelling of 2nd toe) Labs: CBC, BMP 01/19/17 06:20 01/19/17 06:20 INR, PTT INR 1.87 (0.82-1.09) H 01/17/17 06:00 Assessment/Plan Gangrene L great toe Cellulitis L 2nd toe Leukocytosis- resolved Azotemia-improved Continue zosyn Redose vancomycin Surgical follow up
[2017-01-19] MEDS ORDERED: VANCOMYCIN 1 GRAM (PRE-DOCKED) 250 ML IVPB ONE (14:00)
[2017-01-19] MEDS ORDERED: PT OWN MED DRAWER 7, Y5N ONE (15:49)
[2017-01-19] MEDS ORDERED: MAGNESIUM SULF 50% (8.12 MEQ/2 ML-1 GM VIAL) IVPB ONE (15:50)
--- NOTE | 2017-01-19 16:02 | PN ---
Physical Exam: SUBJECTIVE: Patient seen and examined by me at bedside. No overnight events noted. Patient is comfortable and pleasant and offers no complaints. Otherwise , patient denies fever, chills, nausea, vomiting, chest pain, palpitations, shortness of breath. OBJECTIVE: Vital Signs Period Temp Pulse Resp BP Sys/Dial Pulse Ox Last 24 Hr 97.5 F-99.9 F 65-85 16-20 102-134/56-70 99 GENERAL: The patient is awake, alert, and fully oriented, in no acute distress. LUNGS: Breath sounds equal, clear to auscultation bilaterally, no wheezes, no crackles, no accessory muscle use. HEART: Regular rate and rhythm, S1, S2 without murmur, rub or gallop. ABDOMEN: Soft, nontender, nondistended, normoactive bowel sounds, no guarding, no rebound, no masses. EXTREMITIES: Non palpable pedal pulses of left foot. Necrosis and Gangrene of first left hallux with swelling and erythema of second toe Laboratory Results - last 24 hr 01/18/17 01/18/17 01/18/17 11:43 11:45 17:30 WBC RBC Hgb Hct MCV MCHC RDW Plt Count MPV PTT (Actin FS) 46.8 H Sodium Potassium Chloride Carbon Dioxide Anion Gap BUN Creatinine POC Glucometer 231 286 Random Glucose Calcium Magnesium Random Vancomycin 01/18/17 01/18/17 01/19/17 17:40 22:23 02:56 WBC RBC Hgb Hct MCV MCHC RDW Plt Count MPV PTT (Actin FS) 48.1 H Sodium Potassium Chloride Carbon Dioxide Anion Gap BUN Creatinine POC Glucometer 159 254 Random Glucose Calcium Magnesium Random Vancomycin 01/19/17 01/19/17 01/19/17 06:09 06:20 06:20 WBC 8.7 RBC 3.09 L Hgb 8.8 L D Hct 26.4 L MCV 85.4 MCHC 33.1 RDW 15.3 Plt Count 211 D MPV 7.1 L PTT (Actin FS) 49.2 H Sodium Potassium Chloride Carbon Dioxide Anion Gap BUN Creatinine POC Glucometer 146 Random Glucose Calcium Magnesium Random Vancomycin 01/19/17 01/19/17 06:20 11:43 WBC RBC Hgb Hct MCV MCHC RDW Plt Count MPV PTT (Actin FS) Sodium 144 Potassium 3.8 Chloride 111 H Carbon Dioxide 22 Anion Gap 11 BUN 21 H D Creatinine 1.4 H POC Glucometer 178 Random Glucose 146 H Calcium 7.7 L Magnesium 1.7 L D Random Vancomycin 9.106 Active Medications Generic Name Dose Route Start Last Admin Trade Name Freq PRN Reason Stop Dose Admin Acetylcysteine 1,200 mg 01/19/17 22:00 Mucomyst 20 Oral / Inh Use Only* PO 01/21/17 10:01 BID KATHLEEN Atorvastatin Calcium 80 mg 01/17/17 22:00 01/18/17 22:55 Lipitor - PO 80 mg HS KATHLEEN Administration Digoxin 0.125 mg 01/17/17 10:00 01/19/17 09:29 Lanoxin - PO 0.125 mg DAILY KATHLEEN Administration Heparin Sodium (Porcine) 1,000 unit 01/16/17 23:10 01/19/17 03:39 Heparin - IVPUSH 1,000 unit PRN PRN Administration Heparin Heparin Sodium (Porcine) 5,000 unit 01/16/17 23:10 01/17/17 10:10 Heparin - IVPUSH 5,000 unit PRN PRN Administration Heparin Heparin Sodium (Porcine) 25, 500 mls @ 20 mls/hr 01/16/17 23:15 01/19/17 09:45 000 unit/ Sodium Chloride IV 1,550 unit/hr TITR KATHLEEN Titration Protocol 1,000 UNIT/HR Piperacillin Sod/Tazobactam Sod 50 mls @ 100 mls/hr 01/17/17 18:00 01/19/17 09: 29 Zosyn 2.25gm Ivpb (Pre-Docked) IVPB 100 mls/hr Q8H-IV KATHLEEN Administration Protocol Sodium Chloride 1,000 mls @ 80 mls/hr 01/18/17 15:22 01/19/17 01:44 Normal Saline - IV 80 mls/hr ASDIR KATHLEEN Administration Insulin Aspart 1 vial 01/17/17 11:00 01/19/17 11:45 Novolog Vial Sliding Scale - SQ Not Given TIDAC [facility] Protocol Insulin Detemir 10 units 01/17/17 22:00 01/18/17 22:56 Levemir Vial SQ 10 units HS KATHLEEN Administration Magnesium Sulfate 2 gm 01/19/17 15:50 Magnesium Sulfate IVPB 01/19/17 15:51 ONCE ONE Pantoprazole Sodium 40 mg 01/17/17 10:30 01/19/17 09:29 Protonix - PO 40 mg DAILY KATHLEEN Administration Foot X-ray (01/16/17): No bone destruction. Will need Three phase bone scan Duplex Of Bilateral Extremities (01/16/17): No DVT's Chest X-ray (01/17/17): No acute process Bladder/Renal U/S (01/17/17): Mass-like density in the left kidney Triple phase bone scan )01/17/17): Findings suggestive of osteomyelitis involving the first and second toe of left foot ASSESSMENT/PLAN: Patient is a 56 year old male with a PMHx of DM II, A.Fib, HTN, CKD stage 3, peptic ulcer disease, Upper GI bleed, bilateral DVT's who presented because of left Hallux toenail falling off. Patient's Hallux found to be gangrenous and necrotic as well as with the second toe. Patient admitted for further monitoring and management. Osteomyelitis of left Hallux and Second toe -Likely from Diabetic ulcer -Zosyn 2.25mg IV Q8H day #4 -Vancomycin 1gm IVPB renally dosed. -Blood cultures negative -Wound cultures shows Diptheroid/Corynebacterium -Podiatry following and will require partial amputation -Vascular will do Angio tomorrow -Oral AC held and now on Heparin for surgery/procedure prep. Will hold Heparin in the morning before procedure Acute on Chronic Renal Failure- Improving -Stage 3 -BUN/Cr 21/1.4 -Lisinopril, Aldactone, and Demadex on hold -Continue IV NS @80mls/hr -FENa 1.2% -Nephrology on board -Daily BMP IDDM II -Continue Levemir 10 units evening -ISS -BGM HTN -BP meds on hold due to AMY and hypotension -Continue to monitor BP Atrial Fibrillation- controlled -Continue Digoxin -Xarelto on hold due to anticipated surgery Hx of Bilateral DVT's -On IV Heparin Drip -Will hold Heparin drip in the morning before procedure Peptic Ulcer Disease -Continue Protonix Hypomagnesemia -Magnesium sulfate 2gm IV once -Continue to monitor F/E/N -IV NS @80mls/hr -Electrolytes wnl -Diabetic/sodium controlled diet Prophylaxis -Heparin drip for DVT -Protonix for GI Disposition -Will have angio done tomorrow. Visit type - Emergency Visit Emergency Visit: Yes ED Registration Date: 01/16/17 Care time: The patient presented to the Emergency Department on the above date and was hospitalized for further evaluation of their emergent condition. - New Patient This patient is new to me today: No - Critical Care Critical Care patient: No
--- NOTE | 2017-01-19 18:07 | PN ---
Teaching Attending Note Name of Resident: Stephanie Mathew ATTENDING PHYSICIAN STATEMENT I saw and evaluated the patient. I reviewed the resident's note and discussed the case with the resident. I agree with the resident's findings and plan as documented. SUBJECTIVE:currently asymptomatic. denies CP, SOB,fever, chills, N/V/C/D OBJECTIVE: Last Vital Signs Temp Pulse Resp BP Pulse Ox 98.3 F 67 20 124/63 99 01/19/17 15:28 01/19/17 15:28 01/19/17 15:28 01/19/17 15:28 01/19/17 09:00 General NAD CV S1 S2 + no murmur/rub/gallop Lungs CTA B/L No wheezing/rales/rhonchi ASSESSMENT AND PLAN: 56yo M with PMH DM, a fib, HTN, stage 3 CKD, PUD, UGI bleed, bilateral leg DVTs who presented to the ER and was admitted for further evaluation of their emergent condition 1. OM of the 1st and 2nd toe of L foot-due to diabetic foot ulcer. leukocytosis resolved. NPO for angiogram in the AM. hold heparin in the AM. will need amputation of the toes after. on Zosyn/Vanco. will need bone bx report to determine abx course. podiatry, vascular surgery and ID on board. will need PT assessment post-op. possible candidate for HBO therapy 2. Acute on chronic CKD- improved. cont low dose IVF. on mucomyst for anticipation of contrast being given in AM. hold nephrotoxic agents. neprhology on board. 3. Type 2 DM- improved. cont current medication. iss, levemir 4. HTN-currently normotensive off oral agents. cont to monitor 5. hypomagnesemia- replete. goal 2 6. Permanent atrial fibrillation-rate controlled. cont home management. hold xarelto and on hep ggt in anticipation of surgery 7. PUD, history of GI bleed- Continue Protonix (should remain on PPI while on anticoagulation)
[2017-01-19] MEDS: ATORVASTATIN CA 80 MG TABLET (FP) PO SCH (21:55)
[2017-01-19] MEDS: INSULIN DETEMIR 100 UNITS/ML MDV SQ SCH (21:55)
[2017-01-19] MEDS: ACETYLCYSTEINE 20% 200MG/ML 4 ML VIAL *FOR ORAL / INH USE ONLY PO SCH (22:50)
[2017-01-20 00:11] LABS: ALBUMIN FOR UPE 18.9 % (.); GAMMA GLOBULIN % 38.4 % (.); M-SPIKE, % Not Observed % (Not Observed)
[2017-01-20] MEDS: PIPERACILLIN/TAZOB 2.25 GM 50 ML IVPB SCH ×3 (01:09→18:17)
[2017-01-20] MEDS: INSULIN SLIDING SCALE (NOVOLOG) 1 VIAL SQ SCH ×3 (07:59→17:36)
[2017-01-20] MEDS: SODIUM CHLORIDE 1,000 ML IV SCH ×2 (08:14→14:35)
[2017-01-20 08:18] LABS: MCH 28.5 pg (25.7-33.7); MCHC 33.2 g/dl (32.0-35.9); MEAN PLT VOLUME 7.3 fl (7.5-11.1); PLATELET COUNT 223 K/MM3 (134-434); RDW 15.4 % (11.9-15.9); WHITE BLOOD COUNT 9.3 K/mm3 (4.0-10.0)
[2017-01-20 09:02] LABS: CALCIUM 8.1 mg/dL (8.5-10.1); COCKROFT - GAULT 122.68; CREATININE 1.2 mg/dL (0.7-1.3)
--- NOTE | 2017-01-20 09:03 | PN ---
Physical Exam: SUBJECTIVE: Patient seen and examined by me at bedside. No overnight events noted. Patient is sitting up in bed and offers no complaints. Otherwise, patient denies fever, chills, nausea, vomiting, chest pain, palpitations, shortness of breath OBJECTIVE: Vital Signs Period Temp Pulse Resp BP Sys/Dial Pulse Ox Last 24 Hr 97.4 F-98.4 F 58-76 16-20 117-134/63-72 98-99 GENERAL: The patient is awake, alert, and fully oriented, in no acute distress. LUNGS: Breath sounds equal, clear to auscultation bilaterally, no wheezes, no crackles, no accessory muscle use. HEART: Regular rate and rhythm, S1, S2 without murmur, rub or gallop. ABDOMEN: Soft, nontender, nondistended, normoactive bowel sounds, no guarding, no rebound, no masses. EXTREMITIES: Non palpable pedal pulses of left foot. Necrosis and Gangrene of first left hallux with swelling and erythema of second toe Laboratory Results - last 24 hr 01/17/17 01/19/17 01/19/17 00:00 06:20 06:20 WBC RBC Hgb Hct MCV MCHC RDW Plt Count MPV PTT (Actin FS) 49.2 H Sodium 144 Potassium 3.8 Chloride 111 H Carbon Dioxide 22 Anion Gap 11 BUN 21 H D Creatinine 1.4 H POC Glucometer Random Glucose 146 H Calcium 7.7 L Magnesium 1.7 L D Razvo-1-Wpwufdtca (%) 2.8 Drnjn-3-Syziazzjh (%) 12.6 Beta Globulins (%) 27.3 Gamma Globulins (%) 38.4 M-Tito % Not observed Urine Total Protein 20.2 Urine PEP Interpret 18.9 Random Vancomycin 9.106 Ref Test Comments 01/19/17 01/19/17 01/19/17 11:43 17:15 21:47 WBC RBC Hgb Hct MCV MCHC RDW Plt Count MPV PTT (Actin FS) Sodium Potassium Chloride Carbon Dioxide Anion Gap BUN Creatinine POC Glucometer 178 209 174 Random Glucose Calcium Magnesium Qqhsn-7-Gsyvwtnrg (%) Qazxh-8-Wlgbfxkkn (%) Beta Globulins (%) Gamma Globulins (%) M-Tito % Urine Total Protein Urine PEP Interpret Random Vancomycin Ref Test Comments 01/20/17 01/20/17 01/20/17 05:49 06:50 06:50 WBC 9.3 RBC 3.27 L Hgb 9.3 L Hct 28.2 L MCV 86.0 MCHC 33.2 RDW 15.4 Plt Count 223 MPV 7.3 L PTT (Actin FS) 64.8 H D Sodium Potassium Chloride Carbon Dioxide Anion Gap BUN Creatinine POC Glucometer 179 Random Glucose Calcium Magnesium Nuhvc-9-Xvfvhwjyv (%) Gdvhb-2-Cfazfexqi (%) Beta Globulins (%) Gamma Globulins (%) M-Tito % Urine Total Protein Urine PEP Interpret Random Vancomycin Ref Test Comments Active Medications Generic Name Dose Route Start Last Admin Trade Name Freq PRN Reason Stop Dose Admin Acetylcysteine 1,200 mg 01/19/17 22:00 01/19/17 22:50 Mucomyst 20 Oral / Inh Use Only* PO 01/21/17 10:01 1,200 mg BID KATHLEEN Administration Atorvastatin Calcium 80 mg 01/17/17 22:00 01/19/17 21:55 Lipitor - PO 80 mg HS KATHLEEN Administration Digoxin 0.125 mg 01/17/17 10:00 01/19/17 09:29 Lanoxin - PO 0.125 mg DAILY KATHLEEN Administration Heparin Sodium (Porcine) 1,000 unit 01/16/17 23:10 01/19/17 03:39 Heparin - IVPUSH 1,000 unit PRN PRN Administration Heparin Heparin Sodium (Porcine) 5,000 unit 01/16/17 23:10 01/17/17 10:10 Heparin - IVPUSH 5,000 unit PRN PRN Administration Heparin Heparin Sodium (Porcine) 25, 500 mls @ 20 mls/hr 01/16/17 23:15 01/19/17 23:15 000 unit/ Sodium Chloride IV Not Given TITR KATHLEEN Protocol 1,000 UNIT/HR Piperacillin Sod/Tazobactam Sod 50 mls @ 100 mls/hr 01/17/17 18:00 01/20/17 01: 09 Zosyn 2.25gm Ivpb (Pre-Docked) IVPB 100 mls/hr Q8H-IV KATHLEEN Administration Protocol Sodium Chloride 1,000 mls @ 80 mls/hr 01/18/17 15:22 01/19/17 17:31 Normal Saline - IV 80 mls/hr ASDIR KATHLEEN Administration Insulin Aspart 1 vial 01/17/17 11:00 01/20/17 07:59 Novolog Vial Sliding Scale - SQ Not Given TIDAC [facility] Protocol Insulin Detemir 10 units 01/17/17 22:00 01/19/17 21:55 Levemir Vial SQ 10 units HS KATHLEEN Administration Pantoprazole Sodium 40 mg 01/17/17 10:30 01/19/17 09:29 Protonix - PO 40 mg DAILY KATHLEEN Administration Foot X-ray (01/16/17): No bone destruction. Will need Three phase bone scan Duplex Of Bilateral Extremities (01/16/17): No DVT's Chest X-ray (01/17/17): No acute process Bladder/Renal U/S (01/17/17): Mass-like density in the left kidney Triple phase bone scan )01/17/17): Findings suggestive of osteomyelitis involving the first and second toe of left foot ASSESSMENT/PLAN: Patient is a 56 year old male with a PMHx of DM II, A.Fib, HTN, CKD stage 3, peptic ulcer disease, Upper GI bleed, bilateral DVT's who presented because of left Hallux toenail falling off. Patient's Hallux found to be gangrenous and necrotic as well as with the second toe. Patient admitted for further monitoring and management. Osteomyelitis of left Hallux and Second toe -Likely from Diabetic ulcer -Zosyn 2.25mg IV Q8H day #5 -Vancomycin 1gm IVPB renally dosed. Day #4 -Blood cultures negative -Wound cultures shows Diptheroid/Corynebacterium -Podiatry following and will require partial amputation -Angio Today Acute on Chronic Renal Failure- Improving -Stage 3 -BUN/Cr 07/07.2 -Lisinopril, Aldactone, and Demadex on hold -Continue IV NS @80mls/hr -Nephrology on board -Daily BMP IDDM II -Continue Levemir 10 units evening -ISS -BGM HTN -BP meds on hold due to AMY and hypotension -Continue to monitor BP Atrial Fibrillation- controlled -Continue Digoxin -Xarelto on hold due to anticipated surgery Hx of Bilateral DVT's -On IV Heparin Drip -Will hold Heparin drip in the morning before procedure Peptic Ulcer Disease -Continue Protonix Hypomagnesemia -Magnesium sulfate 2gm IV given yesterday -Continue to monitor F/E/N -IV NS @80mls/hr -Electrolytes wnl -Diabetic/sodium controlled diet Prophylaxis -Heparin drip for DVT -Protonix for GI Disposition -Angio scheduled for today . Visit type - Emergency Visit Emergency Visit: Yes ED Registration Date: 01/16/17 Care time: The patient presented to the Emergency Department on the above date and was hospitalized for further evaluation of their emergent condition. - New Patient This patient is new to me today: No - Critical Care Critical Care patient: No
[2017-01-20] MEDS: DIGOXIN 0.125 MG TABLET (FP) PO SCH (10:06)
[2017-01-20] MEDS: PANTOPRAZOLE 40 MG TABLET (FP) PO SCH (10:06)
[2017-01-20] MEDS: ACETYLCYSTEINE 20% 200MG/ML 4 ML VIAL *FOR ORAL / INH USE ONLY PO SCH (10:09)
--- NOTE | 2017-01-20 12:22 | PN ---
Progress Note, Physician History of Present Illness: Pt seen and examined at bedside. He is awake and alert. He denies shortness of breath. He denies dysuria or hematuria. - Current Medication List Current Medications: Active Medications Acetylcysteine (Mucomyst 20 Oral / Inh Use Only*) 1,200 mg PO BID KATHLEEN Stop: 01/21/17 10:01 Last Admin: 01/20/17 10:09 Dose: 1,200 mg Atorvastatin Calcium (Lipitor -) 80 mg PO HS KATHLEEN Last Admin: 01/19/17 21:55 Dose: 80 mg Digoxin (Lanoxin -) 0.125 mg PO DAILY KATHLEEN Last Admin: 01/20/17 10:06 Dose: 0.125 mg Heparin Sodium (Porcine) (Heparin -) 1,000 unit IVPUSH PRN PRN PRN Reason: Heparin Last Admin: 01/19/17 03:39 Dose: 1,000 unit Heparin Sodium (Porcine) (Heparin -) 5,000 unit IVPUSH PRN PRN PRN Reason: Heparin Last Admin: 01/17/17 10:10 Dose: 5,000 unit Heparin Sodium (Porcine) 25, (000 unit/ Sodium Chloride) 500 mls @ 20 mls/hr IV TITR KATHLEEN; 1,000 UNIT/HR PRN Reason: Protocol Last Admin: 01/19/17 23:15 Dose: Not Given Piperacillin Sod/Tazobactam Sod (Zosyn 2.25gm Ivpb (Pre-Docked)) 50 mls @ 100 mls/hr IVPB Q8H-IV KATHLEEN PRN Reason: Protocol Last Admin: 01/20/17 10:06 Dose: 100 mls/hr Sodium Chloride (Normal Saline -) 1,000 mls @ 80 mls/hr IV ASDIR [facility] Last Admin: 01/20/17 08:14 Dose: 80 mls/hr Insulin Aspart (Novolog Vial Sliding Scale -) 1 vial SQ TIDAC KATHLEEN PRN Reason: Protocol Last Admin: 01/20/17 07:59 Dose: Not Given Insulin Detemir (Levemir Vial) 10 units SQ HS [facility] Last Admin: 01/19/17 21:55 Dose: 10 units Pantoprazole Sodium (Protonix -) 40 mg PO DAILY [facility] Last Admin: 01/20/17 10:06 Dose: 40 mg - Objective Vital Signs: Vital Signs Temperature 97.4 F L 01/20/17 07:43 Pulse Rate 78 01/20/17 10:06 Respiratory Rate 20 01/20/17 07:43 Blood Pressure 117/72 01/20/17 07:43 O2 Sat by Pulse Oximetry (%) 98 01/19/17 21:00 Constitutional: Yes: Calm Eyes: Yes: Conjunctiva Clear HENT: Yes: Atraumatic Neck: Yes: Supple Cardiovascular: Yes: S1, S2 Respiratory: Yes: CTA Bilaterally Gastrointestinal: Yes: Normal Bowel Sounds, Soft, Abdomen, Obese Genitourinary: Yes: WNL Musculoskeletal: Yes: WNL Edema: Yes Edema: LLE: 1+, RLE: 1+ Neurological: Yes: Oriented Psychiatric: Yes: Oriented Labs: CBC, BMP 01/20/17 06:50 01/20/17 06:50 INR, PTT INR 1.87 (0.82-1.09) H 01/17/17 06:00 Problem List - Problems (1) Diabetes mellitus Code(s): E11.9 - TYPE 2 DIABETES MELLITUS WITHOUT COMPLICATIONS (2) Gangrene of toe of left foot Code(s): I96 - GANGRENE, NOT ELSEWHERE CLASSIFIED (3) HTN (hypertension) Code(s): I10 - ESSENTIAL (PRIMARY) HYPERTENSION (4) Acute renal insufficiency Code(s): N28.9 - DISORDER OF KIDNEY AND URETER, UNSPECIFIED Assessment/Plan Current Medications Generic Name Dose Route Start Last Admin Trade Name Freq PRN Reason Stop Dose Admin Acetylcysteine 1,200 mg 01/19/17 22:00 01/20/17 10:09 Mucomyst 20 Oral / Inh Use Only* PO 01/21/17 10:01 1,200 mg BID KATHLEEN Administration Atorvastatin Calcium 80 mg 01/17/17 22:00 01/19/17 21:55 Lipitor - PO 80 mg HS KATHLEEN Administration Digoxin 0.125 mg 01/17/17 10:00 01/20/17 10:06 Lanoxin - PO 0.125 mg DAILY KATHLEEN Administration Heparin Sodium (Porcine) 1,000 unit 01/16/17 23:10 01/19/17 03:39 Heparin - IVPUSH 1,000 unit PRN PRN Administration Heparin Heparin Sodium (Porcine) 5,000 unit 01/16/17 23:10 01/17/17 10:10 Heparin - IVPUSH 5,000 unit PRN PRN Administration Heparin Heparin Sodium (Porcine) 25, 500 mls @ 20 mls/hr 01/16/17 23:15 01/19/17 23:15 000 unit/ Sodium Chloride IV Not Given TITR KATHLEEN Protocol 1,000 UNIT/HR Piperacillin Sod/Tazobactam Sod 50 mls @ 100 mls/hr 01/17/17 18:00 01/20/17 10: 06 Zosyn 2.25gm Ivpb (Pre-Docked) IVPB 100 mls/hr Q8H-IV KATHLEEN Administration Protocol Sodium Chloride 1,000 mls @ 80 mls/hr 01/18/17 15:22 01/20/17 08:14 Normal Saline - IV 80 mls/hr ASDIR KATHLEEN Administration Insulin Aspart 1 vial 01/17/17 11:00 01/20/17 07:59 Novolog Vial Sliding Scale - SQ Not Given TIDAC KATHLEEN Protocol Insulin Detemir 10 units 01/17/17 22:00 01/19/17 21:55 Levemir Vial SQ 10 units HS KATHLEEN Administration Pantoprazole Sodium 40 mg 01/17/17 10:30 01/20/17 10:06 Protonix - PO 40 mg DAILY KATHLEEN Administration Impression 1. CKD 2. AMY 3. hypomagnesemia 4. DFU 5. left toe gangrene 6. HTN 7. a-fib 8. hx DVT and IVC filter 9. DM 10. hyperlipidemia Plan - renal function is improved - cont with fluids - pt going for angio today - pt understands the risk of OMERO, he has had an angio in the past - keep on fluids - repeat labs in am - will follow - check mag level - lesion in kidney will need further eval - abx per ID - will follow Dr Gonzalez
--- NOTE | 2017-01-20 12:58 | PN ---
Teaching Attending Note Name of Resident: Stephanie Mathew ATTENDING PHYSICIAN STATEMENT I saw and evaluated the patient. I reviewed the resident's note and discussed the case with the resident. I agree with the resident's findings and plan as documented. SUBJECTIVE:asymptomatic. no difficulty ambulating. denies CP, SOB,fever, chills , N/V/C/D OBJECTIVE: Last Vital Signs Temp Pulse Resp BP Pulse Ox 97.4 F L 78 20 117/72 98 01/20/17 07:43 01/20/17 10:06 01/20/17 07:43 01/20/17 07:43 01/19/17 21:00 General NAD ASSESSMENT AND PLAN: 56yo M with PMH DM, a fib, HTN, stage 3 CKD, PUD, UGI bleed, bilateral leg DVTs who presented to the ER and was admitted for further evaluation of their emergent condition 1. OM of the 1st and 2nd toe of L foot-due to diabetic foot ulcer. leukocytosis resolved. NPO for angiogram today. heparin on hold. will need amputation of the toes after. on Zosyn/Vanco. will need bone bx report to determine abx course. podiatry, vascular surgery and ID on board. will need PT assessment post-op. possible candidate for HBO therapy 2. Acute on chronic CKD- improved. cont low dose IVF. on mucomyst for anticipation of contrast being given. hold nephrotoxic agents. neprhology on board. 3. Type 2 DM- improved. cont current medication. iss, levemir 4. HTN-currently normotensive off oral agents. cont to monitor 5. hypomagnesemia- recheck level 6. Permanent atrial fibrillation-rate controlled. cont home management. hold xarelto and on hep ggt in anticipation of surgery 7. PUD, history of GI bleed- Continue Protonix (should remain on PPI while on anticoagulation)
[2017-01-20] MEDS ORDERED: LIDOCAINE HCL 1%, 10 MG/ML (20ML VIAL) ONE (13:44)
[2017-01-20] MEDS ORDERED: MIDAZOLAM HCL 2 MG/2 ML SINGLE DOSE VIAL ONE (14:03)
[2017-01-20] MEDS ORDERED: PROPOFOL 20 ML ONE ×3 (14:03→15:10)
[2017-01-20] MEDS ORDERED: ceFAZolin SODIUM 1 GM VIAL ONE (14:09)
[2017-01-20] MEDS ORDERED: ceFAZolin SODIUM 1 GM VIAL IVPB ONE ×2 (14:22)
[2017-01-20] MEDS ORDERED: LIDOCAINE HCL 1%, 10 MG/ML (50 mL VIAL) IJ ONE ×2 (15:35)
--- NOTE | 2017-01-20 15:53 | PN ---
Progress Note (short form) - Note Progress Note: Vascular Surgery S/p atherectomy and angoplasty of occluded Posterior tibial artery. Good runoff into foot. No anterior tibial present. Cleared for podiatry intervention from a vascular standpoint. Darryl Woods DO
[2017-01-20] MEDS ORDERED: HEPARIN NA (PORCINE) 5,000 UNITS/ML 1ML VIAL IVPUSH PRN ×2 (15:56)
--- NOTE | 2017-01-20 15:59 | OP ---
Operative Note - Note: Operative Date: 01/20/17 Pre-Operative Diagnosis: Left great toe gangrene Operation: Aortogram, LLE angiogram, Posterior tibial artery atherectomy, with angioplasty. Post-Operative Diagnosis: Same as Pre-op Surgeon: Darryl Woods Anesthesia: Fractional Estimated Blood Loss (mls): 50 Operative Report Dictated: Yes
[2017-01-20] MEDS ORDERED: GLYCOPYRROLATE 0.2 MG/1 ML VIAL ONE (16:25)
[2017-01-20] MEDS ORDERED: SODIUM CHLORIDE 1,000 ML IV SCH (16:53)
[2017-01-20] MEDS ORDERED: HEPARIN INFUSION - 500 ML IVPB SCH (20:55)
[2017-01-20] MEDS: HEPARIN NA (PORCINE) 5,000 UNITS/ML 1ML VIAL IVPUSH PRN (21:37)
[2017-01-20] MEDS: HEPARIN - 25,000 UNIT in SODIUM CHLORIDE 495 ML IV SCH (21:37)
[2017-01-20] MEDS: ATORVASTATIN CA 80 MG TABLET (FP) PO SCH (21:38)
[2017-01-20] MEDS ORDERED: INSULIN DETEMIR 100 UNITS/ML MDV SQ SCH (22:00)
[2017-01-21] MEDS: PIPERACILLIN/TAZOB 2.25 GM 50 ML IVPB SCH ×3 (02:58→18:40)
[2017-01-21] MEDS: INSULIN SLIDING SCALE (NOVOLOG) 1 VIAL SQ SCH ×3 (06:00→18:05)
[2017-01-21 08:47] LABS: MCH 28.3 pg (25.7-33.7); MCHC 32.4 g/dl (32.0-35.9); MEAN CELL VOLUME 87.4 fl (80-96); PLATELET COUNT 216 K/MM3 (134-434); RDW 15.3 % (11.9-15.9); WHITE BLOOD COUNT 9.7 K/mm3 (4.0-10.0)
[2017-01-21 08:54] LABS: ALBUMIN 2.3 g/dl (3.4-5.0); ALK PHOS 111 U/L (45-117); ANION GAP 12 (8-16); BILIRUBIN,TOTAL 0.3 mg/dL (0.2-1.0); CALCIUM 8.3 mg/dL (8.5-10.1); CO2 21 mmol/L (21-32); COCKROFT - GAULT 129.63; CREATININE 1.2 mg/dL (0.7-1.3); GLUCOSE,RANDOM 128 mg/dL (74-106); MAGNESIUM 1.6 mg/dL (1.8-2.4); SGOT/AST 14 U/L (15-37); SGPT/ALT 12 U/L (12-78); TOT PROT 6.7 g/dl (6.4-8.2)
[2017-01-21] MEDS: ACETYLCYSTEINE 20% 200MG/ML 4 ML VIAL *FOR ORAL / INH USE ONLY PO SCH ×2 (09:52→14:09)
[2017-01-21] MEDS ORDERED: DIGOXIN 0.125 MG TABLET (FP) PO SCH (10:00)
[2017-01-21] MEDS ORDERED: PANTOPRAZOLE 40 MG TABLET (FP) PO SCH (10:00)
[2017-01-21] MEDS: HEPARIN NA (PORCINE) 5,000 UNITS/ML 1ML VIAL IVPUSH PRN (11:09)
--- NOTE | 2017-01-21 12:54 | PN ---
Progress Note (short form) - Note Progress Note: Podiatry Brief Note: L hallux distal tuft gangrene, needs L great toe partial amputation. Risks, benefits, alternatives to sx discussed at length. Pt in agreement. Vascular input appreciated. For L great toe partial amputation in am. NPO at midnight. Please hold heparin and titrate as needed. Paola Elias DPM
--- NOTE | 2017-01-21 13:08 | OP ---
DATE OF OPERATION: 01/20/2017 PREOPERATIVE DIAGNOSIS: Left great toe gangrene. POSTOPERATIVE DIAGNOSIS: Left great toe gangrene. PROCEDURE: Aortogram, left lower extremity angiogram, posterior tibial artery orbital atherectomy with angioplasty. SURGEON: Darryl Goldberg MD ANESTHESIA: Fractional. BLOOD LOSS: 50 mL. INDICATIONS: The patient is a 56-year-old male who has had gangrene of his left great toe for some time, probably one month. MRI done shows osteomyelitis. Patient does not have any palpable pulses. It was decided that he would need an angiogram. Patient was consented for the procedure understanding all risks, benefits, and alternatives and taken to the operating room. PROCEDURE IN DETAIL: Once in the operating room, he was placed on the operating table in the supine manner, and the area of the right and left groin were prepped and draped in the sterile surgical manner. We then injected 10 mL of 0.5% lidocaine over the right common femoral artery. We then punctured the right common femoral artery using our micropuncture needle. A micropuncture wire was inserted, and a traditional 5-Mongolian sheath was inserted. We then placed a 0.035 floppy guidewire up into the aorta followed by a Merit catheter. We then shot an aortogram by hand injection showing that the aorta and iliac arteries were without any disease. We then placed a 0.035 stiff guidewire to the left common femoral artery, and our Merit catheter followed. We then shot an angiogram of the left lower extremity showing that the common femoral artery, the profunda, the SFA were all patent, popliteal artery was patent. Patients main runoff was the peroneal artery down to the ankle. Anterior tibial artery was not present. Posterior tibial artery was open at the origin, and then closes, and then reconstitutes above the ankle. We then went ahead and placed a 0.035 stiff guidewire into the SFA. We moved our Merit catheter. We placed a 6 x 55 crossover sheath, 5000 units of IV heparin were administered to the patient. We then went ahead and placed our 0.035 stiff guidewire down into the posterior tibial artery followed by a Quick-Cross catheter, and we were able to successfully cross the occlusion and placed a wire into the foot. We then exchanged for a FiberWire. Using a CSI Orbital Atherectomy device, we were able to perform atherectomy of the posterior tibial artery on small, medium, and high. Once completed, we shot an angiogram showing that the vessel was still diseased. We went ahead and used a 2 x 8 Bard balloon in the arch of the foot of the posterior tibial artery. We then used a 3 x 150 balloon and performed angioplasty of the rest of the posterior tibial artery and the occlusion. Completion angiogram showed that the posterior tibial artery was now completely patent along the peroneal artery going into the foot. Posterior tibial artery is the main runoff into the foot. That should save his toe when he gets an amputation by the podiatry team. At this point, we brought our sheath from up and over, and StarClose device was successfully deployed in the common femoral artery. Area was wet and dried, Dermabond was placed, and the patient tolerated the procedure with no complications. Patient transferred to PACU in stable condition. DARRYL GOLDBERG DO [id number]
[2017-01-21] MEDS ORDERED: MAGNESIUM SULF 50% (8.12 MEQ/2 ML-1 GM VIAL) IVPB ONE (14:15)
--- NOTE | 2017-01-21 14:20 | PN ---
Progress Note, Physician History of Present Illness: No c/o foot pain S/P angiogram/ angioplasty Afebrile WBC improved- WNL Azotemia improved - Current Medication List Current Medications: Active Medications Atorvastatin Calcium (Lipitor -) 80 mg PO HS KATHLEEN Last Admin: 01/20/17 21:38 Dose: 80 mg Digoxin (Lanoxin -) 0.125 mg PO DAILY KATHLEEN Last Admin: 01/21/17 09:52 Dose: 0.125 mg Heparin Sodium (Porcine) (Heparin -) 5,000 unit IVPUSH PRN PRN PRN Reason: Heparin Last Admin: 01/21/17 11:09 Dose: 5,000 unit Heparin Sodium (Porcine) (Heparin -) 1,000 unit IVPUSH PRN PRN PRN Reason: Heparin Sodium Chloride (Normal Saline -) 1,000 mls @ 80 mls/hr IV ASDIR [facility] Last Admin: 01/20/17 20:00 Dose: 80 mls/hr Piperacillin Sod/Tazobactam Sod (Zosyn 2.25gm Ivpb (Pre-Docked)) 50 mls @ 100 mls/hr IVPB Q8H-IV KATHLEEN PRN Reason: Protocol Last Admin: 01/21/17 09:52 Dose: 100 mls/hr Heparin Sodium (Porcine) 25, (000 unit/ Sodium Chloride) 500 mls @ 20 mls/hr IV TITR KATHLEEN; 1,000 UNIT/HR PRN Reason: Protocol Last Titration: 01/21/17 11:06 Dose: 1,150 unit/hr Vancomycin HCl 1,250 mg/ (Dextrose) 250 mls @ 166.667 mls/hr IVPB ONCE ONE PRN Reason: Protocol Stop: 01/21/17 16:29 Insulin Aspart (Novolog Vial Sliding Scale -) 1 vial SQ TIDAC KATHLEEN PRN Reason: Protocol Last Admin: 01/21/17 12:27 Dose: 2 units Insulin Detemir (Levemir Vial) 10 units SQ HS [facility] Last Admin: 01/20/17 21:38 Dose: 10 units Pantoprazole Sodium (Protonix -) 40 mg PO DAILY [facility] Last Admin: 01/21/17 09:52 Dose: 40 mg - Objective Vital Signs: Vital Signs Temperature 97.9 F 01/21/17 06:00 Pulse Rate 75 01/21/17 09:52 Respiratory Rate 20 01/21/17 06:00 Blood Pressure 118/49 01/21/17 06:00 O2 Sat by Pulse Oximetry (%) 99 01/20/17 17:30 Constitutional: Yes: No Distress Eyes: Yes: Conjunctiva Clear Cardiovascular: Yes: Regular Rate and Rhythm, S1, S2 Respiratory: Yes: CTA Bilaterally Gastrointestinal: Yes: Normal Bowel Sounds, Soft. No: Tenderness Extremities: Yes: Other (+ dry gangrene , great toe; swelling 2nd toe) Edema: Yes Edema: LLE: 2+, RLE: 2+ Labs: CBC, BMP 01/21/17 06:30 01/21/17 06:30 INR, PTT INR 1.87 (0.82-1.09) H 01/17/17 06:00 Assessment/Plan Gangrene L great toe Cellulitis L 2nd toe Leukocytosis- resolved Azotemia-improved Continue zosyn/ vancomycin For partial amputation of great toe am
[2017-01-21] MEDS ORDERED: MAGNESIUM OXIDE 400 MG TABLET (FP) PO ONE (14:47)
--- NOTE | 2017-01-21 14:47 | PN ---
Physical Exam: SUBJECTIVE: Patient seen and examined by me at bedside. Patient s/p angiogram/ angioplasty yesterday. No overnight events noted. Patient reports some tingiling sensation in the right groin where the procedure was done. Otherwise , patient denies fever, chills, nausea, vomiting, abdominal pain, chest pain, palpitations, shortness of breath. OBJECTIVE: Vital Signs Period Temp Pulse Resp BP Sys/Dial Pulse Ox Last 24 Hr 97.2 F-98.2 F 46-97 15-20 103-135/41-83 96-99 GENERAL: The patient is awake, alert, and fully oriented, in no acute distress. LUNGS: Breath sounds equal, clear to auscultation bilaterally, no wheezes, no crackles, no accessory muscle use. HEART: Regular rate and rhythm, S1, S2 without murmur, rub or gallop. ABDOMEN: Soft, nontender, nondistended, normoactive bowel sounds, no guarding, no rebound, no masses. EXTREMITIES: Non palpable pedal pulses of left foot. Necrosis and Gangrene of first left hallux with swelling and erythema of second toe Laboratory Results - last 24 hr 01/17/17 01/20/17 01/20/17 00:00 18:09 20:00 WBC RBC Hgb Hct MCV MCHC RDW Plt Count MPV PTT (Actin FS) Sodium Potassium Chloride Carbon Dioxide Anion Gap BUN Creatinine Creat Clearance w eGFR POC Glucometer 115 135 Random Glucose Calcium Magnesium Total Bilirubin AST ALT Alkaline Phosphatase Total Protein Albumin Urine Eosinophils None seen 01/21/17 01/21/17 01/21/17 05:59 06:30 06:30 WBC 9.7 RBC 3.20 L Hgb 9.1 L Hct 27.9 L MCV 87.4 MCHC 32.4 RDW 15.3 Plt Count 216 MPV 8.0 PTT (Actin FS) 29.5 D Sodium Potassium Chloride Carbon Dioxide Anion Gap BUN Creatinine Creat Clearance w eGFR POC Glucometer 138 Random Glucose Calcium Magnesium Total Bilirubin AST ALT Alkaline Phosphatase Total Protein Albumin Urine Eosinophils 01/21/17 01/21/17 06:30 12:27 WBC RBC Hgb Hct MCV MCHC RDW Plt Count MPV PTT (Actin FS) Sodium 142 Potassium 4.1 Chloride 109 H Carbon Dioxide 21 Anion Gap 12 BUN 8 D Creatinine 1.2 Creat Clearance w eGFR > 60 POC Glucometer 164 Random Glucose 128 H Calcium 8.3 L Magnesium 1.6 L Total Bilirubin 0.3 D AST 14 L ALT 12 Alkaline Phosphatase 111 Total Protein 6.7 D Albumin 2.3 L D Urine Eosinophils Active Medications Generic Name Dose Route Start Last Admin Trade Name Freq PRN Reason Stop Dose Admin Atorvastatin Calcium 80 mg 01/20/17 22:00 01/20/17 21:38 Lipitor - PO 80 mg HS KATHLEEN Administration Digoxin 0.125 mg 01/21/17 10:00 01/21/17 09:52 Lanoxin - PO 0.125 mg DAILY KATHLEEN Administration Heparin Sodium (Porcine) 5,000 unit 01/20/17 20:55 01/21/17 11:09 Heparin - IVPUSH 5,000 unit PRN PRN Administration Heparin Heparin Sodium (Porcine) 1,000 unit 01/20/17 15:56 Heparin - IVPUSH PRN PRN Heparin Sodium Chloride 1,000 mls @ 80 mls/hr 01/20/17 16:53 01/20/17 20:00 Normal Saline - IV 80 mls/hr ASDIR KATHLEEN Administration Piperacillin Sod/Tazobactam Sod 50 mls @ 100 mls/hr 01/20/17 18:00 01/21/17 09: 52 Zosyn 2.25gm Ivpb (Pre-Docked) IVPB 100 mls/hr Q8H-IV KATHLEEN Administration Protocol Heparin Sodium (Porcine) 25, 500 mls @ 20 mls/hr 01/20/17 18:45 01/21/17 11:06 000 unit/ Sodium Chloride IV 1,150 unit/hr TITR KATHLEEN Titration Protocol 1,000 UNIT/HR Vancomycin HCl 1,250 mg/ 250 mls @ 166.667 mls/hr 01/21/17 15:00 Dextrose IVPB 01/21/17 16:29 ONCE ONE Protocol Vancomycin HCl 1,000 mg/ 250 mls @ 200 mls/hr 01/21/17 14:30 Dextrose IVPB Q24H KATHLEEN Insulin Aspart 1 vial 01/21/17 07:00 01/21/17 12:27 Novolog Vial Sliding Scale - SQ 2 units TIDAC KATHLEEN Administration Protocol Insulin Detemir 10 units 01/20/17 22:00 01/20/17 21:38 Levemir Vial SQ 10 units HS KATHLEEN Administration Pantoprazole Sodium 40 mg 01/21/17 10:00 01/21/17 09:52 Protonix - PO 40 mg DAILY KATHLEEN Administration ASSESSMENT/PLAN: Foot X-ray (01/16/17): No bone destruction. Will need Three phase bone scan Duplex Of Bilateral Extremities (01/16/17): No DVT's Chest X-ray (01/17/17): No acute process Bladder/Renal U/S (01/17/17): Mass-like density in the left kidney Triple phase bone scan (01/17/17): Findings suggestive of osteomyelitis involving the first and second toe of left foot ASSESSMENT/PLAN: Patient is a 56 year old male with a PMHx of DM II, A.Fib, HTN, CKD stage 3, peptic ulcer disease, Upper GI bleed, bilateral DVT's who presented because of left Hallux toenail falling off. Patient's Hallux found to be gangrenous and necrotic as well as with the second toe. Patient admitted for further monitoring and management. Osteomyelitis of left Hallux and Second toe -Likely from Diabetic ulcer -Zosyn 2.25mg IV Q8H day #6 -Vancomycin increased today to 1.25gm IVPB renally dosed. Day #4, yesterdays dose not given -Blood cultures negative -Wound cultures shows Diptheroid/Corynebacterium -Angiogram/angioplasty done yesterday with no complications -Patient cleared for partial toe amputation with Podiatry. -Will hold Heparin and NPO after midnight Acute on Chronic Renal Failure- Improving -Stage 3 -BUN/Cr 8/1.2 -Lisinopril, Aldactone, and Demadex on hold -Continue IV NS @80mls/hr -Nephrology on board -Daily BMP IDDM II -Continue Levemir 10 units evening -ISS -BGM HTN -BP meds on hold due to AMY and hypotension -Continue to monitor BP Atrial Fibrillation- controlled -Continue Digoxin -Xarelto on hold due to anticipated surgery Hx of Bilateral DVT's -On IV Heparin Drip -Will hold Heparin tonight before procedure tomorrow Peptic Ulcer Disease -Continue Protonix Hypomagnesemia -Magnesium 1.6 -Magnesium sulfate 2gm IV given today -Continue to monitor F/E/N -IV NS @80mls/hr -Hypomagnesemia- magnesium sulfte 2mg IV given -Diabetic/sodium controlled diet. NPO after midnight Prophylaxis -Heparin drip for DVT. Will put on hold before procedure tonight -Protonix for GI Disposition -Scheduled for partial amputation tomorrow. Visit type - Emergency Visit Emergency Visit: Yes ED Registration Date: 01/16/17 Care time: The patient presented to the Emergency Department on the above date and was hospitalized for further evaluation of their emergent condition. - New Patient This patient is new to me today: No - Critical Care Critical Care patient: No
[2017-01-21] MEDS ORDERED: INSULIN DETEMIR 100 UNITS/ML MDV SQ SCH (14:49)
--- NOTE | 2017-01-21 14:50 | PN ---
Teaching Attending Note Name of Resident: Stephanie Mathew ATTENDING PHYSICIAN STATEMENT I saw and evaluated the patient. I reviewed the resident's note and discussed the case with the resident. I agree with the resident's findings and plan as documented. SUBJECTIVE:asymptomatic. denies CP, SOB,fever, chills, N/V/C/D OBJECTIVE: Last Vital Signs Temp Pulse Resp BP Pulse Ox 97.9 F 75 20 118/49 99 01/21/17 06:00 01/21/17 09:52 01/21/17 06:00 01/21/17 06:00 01/20/17 17:30 General NAD Extremities L first digit dry gangrene at tip of toe +exposed bone ASSESSMENT AND PLAN: 56yo M with PMH DM, a fib, HTN, stage 3 CKD, PUD, UGI bleed, bilateral leg DVTs who presented to the ER and was admitted for further evaluation of their emergent condition 1. OM of the 1st and 2nd toe of L foot-due to diabetic foot ulcer. leukocytosis resolved. angiogram showed good flow. NPO tonight for amputation in the AM. missed yesterdays vanco dose. will redose and check trough prior to 4th dose. hold heparin prior to surgery. 2. Acute on chronic CKD-resolved. will d/c IVF and mucomyst. hold nephrotoxic agents. neprhology on board. 3. Type 2 DM- improved. give only levemir 5 units tonight as NPO. iss, levemir 4. HTN-currently normotensive off oral agents. cont to monitor 5. hypomagnesemia- give IV and po 6. Permanent atrial fibrillation-rate controlled. cont home management. hold xarelto and on hep ggt in anticipation of surgery 7. PUD, history of GI bleed- Continue Protonix (should remain on PPI while on anticoagulation)
[2017-01-21] MEDS ORDERED: VANCOMYCIN 1,250 MG in DEXTROSE 5%-WATER - 250 ML IVPB ONE (15:00)
[2017-01-21] MEDS ORDERED: ACETAMINOPHEN 325 MG TABLET (FP) PO PRN (16:05)
[2017-01-21] MEDS ORDERED: MAG HYDROX/AL HYDROX/SIMETH 30 ML UNIT-DOSE CUP PO ONE (16:07)
[2017-01-21] MEDS ORDERED: PT OWN MED DRAWER 7, Y5N ONE (16:11)
[2017-01-21] MEDS ORDERED: PANTOPRAZOLE SODIUM 100 ML IVPB ONE (16:40)
--- NOTE | 2017-01-21 16:41 | PN ---
Progress Note, Physician History of Present Illness: Pt seen and examined at bedside. He had the angiogram done yesterday. He denies dysuria or hematuria. - Current Medication List Current Medications: Active Medications Atorvastatin Calcium (Lipitor -) 80 mg PO HS KATHLEEN Last Admin: 01/20/17 21:38 Dose: 80 mg Digoxin (Lanoxin -) 0.125 mg PO DAILY [facility] Last Admin: 01/21/17 09:52 Dose: 0.125 mg Heparin Sodium (Porcine) (Heparin -) 5,000 unit IVPUSH PRN PRN PRN Reason: Heparin Stop: 01/22/17 00:00 Last Admin: 01/21/17 11:09 Dose: 5,000 unit Heparin Sodium (Porcine) (Heparin -) 1,000 unit IVPUSH PRN PRN PRN Reason: Heparin Stop: 01/22/17 00:00 Piperacillin Sod/Tazobactam Sod (Zosyn 2.25gm Ivpb (Pre-Docked)) 50 mls @ 100 mls/hr IVPB Q8H-IV KATHLEEN PRN Reason: Protocol Last Admin: 01/21/17 09:52 Dose: 100 mls/hr Heparin Sodium (Porcine) 25, (000 unit/ Sodium Chloride) 500 mls @ 20 mls/hr IV TITR KATHLEEN; 1,000 UNIT/HR PRN Reason: Protocol Stop: 01/22/17 00:00 Last Titration: 01/21/17 11:06 Dose: 1,150 unit/hr Vancomycin HCl (Vancomycin (Pre-Docked)) 250 mls @ 200 mls/hr IVPB Q24H KATHLEEN Insulin Aspart (Novolog Vial Sliding Scale -) 1 vial SQ TIDAC KATHLEEN PRN Reason: Protocol Last Admin: 01/21/17 12:27 Dose: 2 units Insulin Detemir (Levemir Vial) 5 units SQ HS KATHLEEN Pantoprazole Sodium (Protonix -) 40 mg PO DAILY [facility] Last Admin: 01/21/17 09:52 Dose: 40 mg - Objective Vital Signs: Vital Signs Temperature 97.4 F L 01/21/17 14:54 Pulse Rate 46 L 01/21/17 16:21 Respiratory Rate 20 01/21/17 16:21 Blood Pressure 120/60 01/21/17 16:21 O2 Sat by Pulse Oximetry (%) 99 01/20/17 17:30 Constitutional: Yes: Calm Eyes: Yes: Conjunctiva Clear HENT: Yes: Atraumatic Neck: Yes: Supple Cardiovascular: Yes: S1, S2 Respiratory: Yes: CTA Bilaterally Gastrointestinal: Yes: Normal Bowel Sounds, Soft, Abdomen, Obese Genitourinary: Yes: WNL Edema: Yes Edema: LLE: 1+, RLE: 1+ Neurological: Yes: Oriented Psychiatric: Yes: Oriented Labs: CBC, BMP 01/21/17 06:30 01/21/17 06:30 INR, PTT INR 1.87 (0.82-1.09) H 01/17/17 06:00 Problem List - Problems (1) Diabetes mellitus Code(s): E11.9 - TYPE 2 DIABETES MELLITUS WITHOUT COMPLICATIONS (2) Gangrene of toe of left foot Code(s): I96 - GANGRENE, NOT ELSEWHERE CLASSIFIED (3) HTN (hypertension) Code(s): I10 - ESSENTIAL (PRIMARY) HYPERTENSION (4) Acute renal insufficiency Code(s): N28.9 - DISORDER OF KIDNEY AND URETER, UNSPECIFIED Assessment/Plan Current Medications Generic Name Dose Route Start Last Admin Trade Name Freq PRN Reason Stop Dose Admin Atorvastatin Calcium 80 mg 01/20/17 22:00 01/20/17 21:38 Lipitor - PO 80 mg HS KATHLEEN Administration Digoxin 0.125 mg 01/21/17 10:00 01/21/17 09:52 Lanoxin - PO 0.125 mg DAILY KATHLEEN Administration Heparin Sodium (Porcine) 5,000 unit 01/20/17 20:55 01/21/17 11:09 Heparin - IVPUSH 01/22/17 00:00 5,000 unit PRN PRN Administration Heparin Heparin Sodium (Porcine) 1,000 unit 01/20/17 15:56 Heparin - IVPUSH 01/22/17 00:00 PRN PRN Heparin Piperacillin Sod/Tazobactam Sod 50 mls @ 100 mls/hr 01/20/17 18:00 01/21/17 09: 52 Zosyn 2.25gm Ivpb (Pre-Docked) IVPB 100 mls/hr Q8H-IV KATHLEEN Administration Protocol Heparin Sodium (Porcine) 25, 500 mls @ 20 mls/hr 01/20/17 18:45 01/21/17 11:06 000 unit/ Sodium Chloride IV 01/22/17 00:00 1,150 unit/hr TITR KATHLEEN Titration Protocol 1,000 UNIT/HR Vancomycin HCl 250 mls @ 200 mls/hr 01/22/17 14:30 Vancomycin (Pre-Docked) IVPB Q24H KATHLEEN Insulin Aspart 1 vial 01/21/17 07:00 01/21/17 12:27 Novolog Vial Sliding Scale - SQ 2 units TIDAC KATHLEEN Administration Protocol Insulin Detemir 5 units 01/21/17 14:49 Levemir Vial SQ HS KATHLEEN Pantoprazole Sodium 40 mg 01/21/17 10:00 01/21/17 09:52 Protonix - PO 40 mg DAILY KATHLEEN Administration Impression 1. CKD 2. AMY 3. hypomagnesemia 4. DFU 5. left toe gangrene 6. HTN 7. a-fib 8. hx DVT and IVC filter 9. DM 10. hyperlipidemia Plan - replace magnesium - repeat labs in am - can restart fluids tonight and gently hydrate before surgery tomorrow - cont protonix - renal function remains stable - lesion in kidney will need further eval - abx per ID - will follow Dr Gonzalez
--- NOTE | 2017-01-21 17:00 | HOSP ---
Addendum entered and electronically signed by Stephanie Mathew RES 01/21/17 19:15 : Chest X-ray negative for acute pathology Abdominal X-ray negative for acute pathology. Does show mild gaseous distension with increased stool Troponins negative -CBC 10.5 -Lactic Acid 2.479 -1 Bolus of IV fluids ordered -Repeat at 2100 -Simethicone 160mg ordered -Will endorse to night team for follow up Original Note: Physical Examination Vital Signs: Vital Signs Temperature 97.4 F L 01/21/17 14:54 Pulse Rate 46 L 01/21/17 16:21 Respiratory Rate 20 01/21/17 16:21 Blood Pressure 120/60 01/21/17 16:21 O2 Sat by Pulse Oximetry (%) 99 01/20/17 17:30 Labs: CBC, BMP 01/21/17 06:30 01/21/17 06:30 Hospitalist Encounter Assessment: Notified by RN that patient has severe abdominal pain. Patient had diffuse moderate pain and tenderness of the abdomen. Patient described the pain as crampy that has been intermittent for the last 30 minutes. Patient reports having bowel movements twice today but denies any blood in the stool or urine. Patient also denies coughing up blood. When checking vitals, patient was found to be bradycardic in the low 40's Vitals: 121/1, 42 heart rate, 97% RA, glucose 167 PHYSICAL EXAM: General: Lethargic, clammy and in moderate painful distress HEART: Bradycardic with distant heart sounds LUNGS: CTA Bilaterally ABDOMEN: Diffuse tenderness upon palpation. Normoactive bowel sounds PLAN: -Chest x-ray ordered -Abdominal X-RAY ordered -EKG ordered -Troponins ordered -Mylanta and IV Protonix ordered due to history of PUD -Will continue to monitor Visit type - Emergency Visit Emergency Visit: Yes ED Registration Date: 01/16/17 Care time: The patient presented to the Emergency Department on the above date and was hospitalized for further evaluation of their emergent condition. - New Patient This patient is new to me today: No - Critical Care Critical Care patient: Yes Total Critical Care Time (in minutes): 45 Critical Care Statement: The care of this patient involved high complexity decision making to prevent further life threatening deterioration of the patient 's condition and/or to evalute & treat vital organ system(s) failure or risk of failure.
[2017-01-21] MEDS ORDERED: ONDANSETRON 4 MG/2 ML VIAL IVPUSH ONE (17:48)
[2017-01-21 18:11] LABS: MCH 27.9 pg (25.7-33.7); MCHC 32.4 g/dl (32.0-35.9); MEAN CELL VOLUME 86.2 fl (80-96); MEAN PLT VOLUME 7.2 fl (7.5-11.1); PLATELET COUNT 206 K/MM3 (134-434); RDW 15.2 % (11.9-15.9); WHITE BLOOD COUNT 10.5 K/mm3 (4.0-10.0)
[2017-01-21] MEDS ORDERED: morphine CARPU-JECT 2 MG/1 ML DISP.SYRIN IVPUSH PRN (18:11)
[2017-01-21] MEDS ORDERED: SODIUM CHLORIDE 1,000 ML IV SCH (18:15)
[2017-01-21] MEDS: HEPARIN - 25,000 UNIT in SODIUM CHLORIDE 495 ML IV SCH (18:42)
[2017-01-21 18:48] LABS: TROPONIN I 0.02 ng/ml (0.00-0.05)
[2017-01-21] MEDS ORDERED: SODIUM CHLORIDE 1,000 ML IV STA (19:11)
[2017-01-21] MEDS ORDERED: SIMETHICONE 80 MG TAB.CHEW (FP) PO ONE (19:13)
[2017-01-21] MEDS: ATORVASTATIN CA 80 MG TABLET (FP) PO SCH (21:48)
[2017-01-22] MEDS: PIPERACILLIN/TAZOB 2.25 GM 50 ML IVPB SCH (01:38)
[2017-01-22] MEDS: INSULIN SLIDING SCALE (NOVOLOG) 1 VIAL SQ SCH ×3 (06:50→17:15)
--- NOTE | 2017-01-22 07:24 | PN ---
Progress Note (short form) - Note Progress Note: Podiatry Pre-op: Risks, benefits, alternatives to surgery discussed at length with patient. In agreement for planned procedure. Plan for L great toe partial amputation. Paola Elias DPM
[2017-01-22] MEDS ORDERED: LIDOCAINE HCL/PF 2% SDV 5ML VIAL ONE (07:31)
[2017-01-22] MEDS ORDERED: PROPOFOL 20 ML ONE ×2 (07:33)
[2017-01-22] MEDS ORDERED: MIDAZOLAM HCL 2 MG/2 ML SINGLE DOSE VIAL ONE (07:34)
[2017-01-22 07:38] LABS: INR 1.14 (0.82-1.09); PROTHROMBIN TIME (PATIENT) 12.6 SEC (9.98-11.88)
[2017-01-22 07:39] LABS: MCHC 33.5 g/dl (32.0-35.9); MEAN CELL VOLUME 86.7 fl (80-96); MEAN PLT VOLUME 7.4 fl (7.5-11.1); PLATELET COUNT 193 K/MM3 (134-434); RDW 15.3 % (11.9-15.9); WHITE BLOOD COUNT 10.8 K/mm3 (4.0-10.0)
[2017-01-22] MEDS ORDERED: LIDOCAINE HCL 1%, 10 MG/ML (20ML VIAL) ONE (07:53)
[2017-01-22] MEDS ORDERED: LIDOCAINE HCL 1%, 10 MG/ML (20ML VIAL) IJ ONE (08:05)
[2017-01-22 08:11] LABS: CALCIUM 8.8 mg/dL (8.5-10.1); COCKROFT - GAULT 119.98; CREATININE 1.3 mg/dL (0.7-1.3); MAGNESIUM 1.9 mg/dL (1.8-2.4)
[2017-01-22] MEDS ORDERED: morphine CARPU-JECT 2 MG/1 ML DISP.SYRIN IVPUSH PRN ×2 (08:16→09:33)
[2017-01-22] MEDS ORDERED: SODIUM CHLORIDE 1,000 ML IV SCH (08:30)
--- NOTE | 2017-01-22 08:38 | PN ---
Physical Exam: SUBJECTIVE: Patient seen and examined by me at bedside. No overnight events noted and patients abdominal pain subsided. Patient this morning was sent to the OR for partial toe amputation. Will see him this afternoon post-op. OBJECTIVE: Vital Signs Period Temp Pulse Resp BP Sys/Dial Pulse Ox Last 24 Hr 97.3 F-98.8 F 43-75 18-22 105-134/46-82 100-100 Unable to obtain Physical Exam. Patient was sent to the OR Laboratory Results - last 24 hr 01/21/17 01/21/17 01/21/17 06:30 06:30 06:30 WBC 9.7 RBC 3.20 L Hgb 9.1 L Hct 27.9 L MCV 87.4 MCHC 32.4 RDW 15.3 Plt Count 216 MPV 8.0 INR PTT (Actin FS) 29.5 D Sodium 142 Potassium 4.1 Chloride 109 H Carbon Dioxide 21 Anion Gap 12 BUN 8 D Creatinine 1.2 Creat Clearance w eGFR > 60 POC Glucometer Random Glucose 128 H Lactic Acid Calcium 8.3 L Magnesium 1.6 L Total Bilirubin 0.3 D AST 14 L ALT 12 Alkaline Phosphatase 111 Creatine Kinase Troponin I Total Protein 6.7 D Albumin 2.3 L D Digoxin 01/21/17 01/21/17 01/21/17 12:27 16:17 16:33 WBC 10.5 H RBC 3.47 L Hgb 9.7 L Hct 29.9 L MCV 86.2 MCHC 32.4 RDW 15.2 Plt Count 206 MPV 7.2 L INR PTT (Actin FS) Sodium Potassium Chloride Carbon Dioxide Anion Gap BUN Creatinine Creat Clearance w eGFR POC Glucometer 164 167 Random Glucose Lactic Acid Calcium Magnesium Total Bilirubin AST ALT Alkaline Phosphatase Creatine Kinase Troponin I Total Protein Albumin Digoxin 01/21/17 01/21/17 01/21/17 17:45 17:45 17:45 WBC RBC Hgb Hct MCV MCHC RDW Plt Count MPV INR PTT (Actin FS) 50.1 H D Sodium Potassium Chloride Carbon Dioxide Anion Gap BUN Creatinine Creat Clearance w eGFR POC Glucometer Random Glucose Lactic Acid 2.479 H* Calcium Magnesium Total Bilirubin AST ALT Alkaline Phosphatase Creatine Kinase 94 Troponin I 0.02 Total Protein Albumin Digoxin 01/21/17 01/21/17 01/21/17 17:45 21:00 21:29 WBC RBC Hgb Hct MCV MCHC RDW Plt Count MPV INR PTT (Actin FS) Sodium Potassium Chloride Carbon Dioxide Anion Gap BUN Creatinine Creat Clearance w eGFR POC Glucometer 184 Random Glucose Lactic Acid 1.300 Calcium Magnesium Total Bilirubin AST ALT Alkaline Phosphatase Creatine Kinase Troponin I Total Protein Albumin Digoxin 0.7360 L 01/22/17 01/22/17 01/22/17 05:26 06:30 06:30 WBC 10.8 H RBC 3.31 L Hgb 9.6 L Hct 28.7 L MCV 86.7 MCHC 33.5 RDW 15.3 Plt Count 193 MPV 7.4 L INR PTT (Actin FS) 25.7 L D Sodium Potassium Chloride Carbon Dioxide Anion Gap BUN Creatinine Creat Clearance w eGFR POC Glucometer 139 Random Glucose Lactic Acid Calcium Magnesium Total Bilirubin AST ALT Alkaline Phosphatase Creatine Kinase Troponin I Total Protein Albumin Digoxin 01/22/17 01/22/17 06:30 06:30 WBC RBC Hgb Hct MCV MCHC RDW Plt Count MPV INR 1.14 D PTT (Actin FS) Sodium 143 Potassium 4.0 Chloride 109 H Carbon Dioxide 24 Anion Gap 10 BUN 8 Creatinine 1.3 Creat Clearance w eGFR POC Glucometer Random Glucose 141 H Lactic Acid Calcium 8.8 Magnesium 1.9 Total Bilirubin AST ALT Alkaline Phosphatase Creatine Kinase Troponin I Total Protein Albumin Digoxin Active Medications Generic Name Dose Route Start Last Admin Trade Name Freq PRN Reason Stop Dose Admin Atorvastatin Calcium 80 mg 01/20/17 22:00 01/21/17 21:48 Lipitor - PO 80 mg HS KATHLEEN Administration Digoxin 0.125 mg 01/21/17 10:00 01/21/17 09:52 Lanoxin - PO 0.125 mg DAILY KATHLEEN Administration Piperacillin Sod/Tazobactam Sod 50 mls @ 100 mls/hr 01/20/17 18:00 01/22/17 01: 38 Zosyn 2.25gm Ivpb (Pre-Docked) IVPB 100 mls/hr Q8H-IV KATHLEEN Administration Protocol Vancomycin HCl 250 mls @ 200 mls/hr 01/22/17 14:30 Vancomycin (Pre-Docked) IVPB Q24H KATHLEEN Sodium Chloride 1,000 mls @ 42 mls/hr 01/21/17 18:15 01/21/17 18:40 Normal Saline - IV 42 mls/hr ASDIR KATHLEEN Administration Sodium Chloride 1,000 mls @ 83 mls/hr 01/22/17 08:30 Normal Saline - IV ASDIR [facility] Insulin Aspart 1 vial 01/21/17 07:00 01/22/17 06:50 Novolog Vial Sliding Scale - SQ Not Given TIDAC [facility] Protocol Insulin Detemir 5 units 01/21/17 14:49 01/21/17 21:50 Levemir Vial SQ 5 units HS KATHLEEN Administration Morphine Sulfate 2 mg 01/22/17 08:16 Morphine Injection - IVPUSH 01/25/17 08:17 [id number] PRN PAIN Pantoprazole Sodium 40 mg 01/21/17 10:00 01/21/17 09:52 Protonix - PO 40 mg DAILY KATHLEEN Administration ASSESSMENT/PLAN: ASSESSMENT/PLAN: Foot X-ray (01/16/17): No bone destruction. Will need Three phase bone scan Duplex Of Bilateral Extremities (01/16/17): No DVT's Chest X-ray (01/17/17): No acute process Bladder/Renal U/S (01/17/17): Mass-like density in the left kidney Triple phase bone scan (01/17/17): Findings suggestive of osteomyelitis involving the first and second toe of left foot ASSESSMENT/PLAN: Patient is a 56 year old male with a PMHx of DM II, A.Fib, HTN, CKD stage 3, peptic ulcer disease, Upper GI bleed, bilateral DVT's who presented because of left Hallux toenail falling off. Patient's Hallux found to be gangrenous and necrotic as well as with the second toe. Patient admitted for further monitoring and management. Osteomyelitis of left Hallux and Second toe -Likely from Diabetic ulcer -Zosyn 2.25mg IV Q8H day #7 -Vancomycin increased today to 1.25gm IVPB renally dosed. Day #5 -Blood cultures negative -Wound cultures shows Diptheroid/Corynebacterium -Partial two amputation scheduled for this morning Acute on Chronic Renal Failure- Improving -Stage 3 -BUN/Cr 8/1.3 -Lisinopril, Aldactone, and Demadex on hold -Continue IV NS @80mls/hr -Nephrology on board -Daily BMP IDDM II -Lowered Levemir 5 units last night prior to surgery -ISS -BGM HTN -BP meds on hold due to AMY and controlled BP -Continue to monitor BP Atrial Fibrillation- controlled -Continue Digoxin Hx of Bilateral DVT's- Chronic -IV Heparin drip on hold for procedure Peptic Ulcer Disease-Chronic -Continue Protonix Hypomagnesemia- Improving -Magnesium 1.9 -Continue to monitor F/E/N -IV NS @80mls/hr -Electrolytes wnl -Diabetic/sodium controlled diet will resume after surgery Prophylaxis -Heparin drip for DVT on hold -Protonix for GI Disposition -Scheduled for partial toe amputation this morning. Visit type - Emergency Visit Emergency Visit: Yes ED Registration Date: 01/16/17 Care time: The patient presented to the Emergency Department on the above date and was hospitalized for further evaluation of their emergent condition. - New Patient This patient is new to me today: No - Critical Care Critical Care patient: No
--- NOTE | 2017-01-22 08:50 | OP ---
Operative Note - Note: Operative Date: 01/22/17 Pre-Operative Diagnosis: L great toe necrotic ulcer and osteomyelitis. L 2nd toe diabetic ulcer Operation: L great toe partial amputation, L 2nd toe ulcer debridement Post-Operative Diagnosis: Same as Pre-op Surgeon: Kobe Elias Anesthesia: Local, MAC Specimens Removed: Bone, left great toe Estimated Blood Loss (mls): 20 Instrument used (Debridements only): #15 blade scalpel Operative Report Dictated: Yes
[2017-01-22] MEDS ORDERED: oxyCODONE HCL 5 MG TABLET PO PRN (08:52)
[2017-01-22 09:09] LABS: TROPONIN I 0.07 ng/ml (0.00-0.05)
[2017-01-22] MEDS ORDERED: PIPERACILLIN/TAZOB 2.25 GM 50 ML IVPB SCH (10:00)
[2017-01-22] MEDS: DIGOXIN 0.125 MG TABLET (FP) PO SCH (10:26)
[2017-01-22] MEDS: SODIUM CHLORIDE 1,000 ML IV SCH (10:45)
[2017-01-22] MEDS: PANTOPRAZOLE 40 MG TABLET (FP) PO SCH (11:51)
--- NOTE | 2017-01-22 13:56 | PN ---
Teaching Attending Note Name of Resident: Stephanie Mathew ATTENDING PHYSICIAN STATEMENT I saw and evaluated the patient. I reviewed the resident's note and discussed the case with the resident. I agree with the resident's findings and plan as documented. SUBJECTIVE:currently asymptomatic. had episode of nausea yesterday evening with multiple episodes of vomiting. c/o abdominal pain at that time. symptoms now resolved. denies CP, SOB,fever, chills, OBJECTIVE: Last Vital Signs Temp Pulse Resp BP Pulse Ox 97.9 F 55 L 18 145/89 100 01/22/17 09:50 01/22/17 10:26 01/22/17 09:50 01/22/17 09:50 01/22/17 09:50 General NAD ASSESSMENT AND PLAN: 56yo M with PMH DM, a fib, HTN, stage 3 CKD, PUD, UGI bleed, bilateral leg DVTs who presented to the ER and was admitted for further evaluation of their emergent condition 1. OM of the 1st and 2nd toe of L foot-NPO for amputation today by podiatry. will follow bone cx results and adjust abx accordingly. vanco re-dosed yesterday. will check trough prior to 4th dose on wednesday. hold heparin and re- start post-op per podiatry. will need PICC and fci abx. PT once cleared by podiatry 2. vomiting- likely related to food. full workup done and self resolved. cardiac markers checked initial was normal and repeat this AM (13H later) with slight trend up. however had no CP, likely small leak. EKG showing afib HR 42. CXR and AXR negative for acute pathology. self resolved with supportive care. 3. Acute on chronic CKD-resolved. hold nephrotoxic agents. neprhology on board. 4. Type 2 DM- improved. re-start full dose levemir 10 units at bedtime. bgm, iss , levemir 5. HTN-currently normotensive off oral agents. cont to monitor 6. hypomagnesemia- resolved 7. Permanent atrial fibrillation-rate controlled. cont home management. hold xarelto and on hep ggt in anticipation of surgery 8. PUD, history of GI bleed- Continue Protonix (should remain on PPI while on anticoagulation) 9. will need PICC and manager intermediate abx. will wait for Bone cx results and then d/c planning to [facility]
--- NOTE | 2017-01-22 14:20 | PN ---
Progress Note (short form) - Note Progress Note: s/p amputation and debridement today no complaints Vital Signs Period Temp Pulse Resp BP Sys/Dial Pulse Ox Last 24 Hr 97.3 F-98.8 F 43-62 16-22 105-145/46-89 100-100 cor-rrr llungs clear abd soft,nt ext dressing (postop) intact CBC, BMP 01/22/17 06:30 01/22/17 06:30 Microbiology 01/16/17 16:16 Blood - Peripheral Venous Blood Culture - Final NO GROWTH AFTER 5 DAYS INCUBATION 01/16/17 16:16 Blood - Peripheral Venous Blood Culture - Final NO GROWTH AFTER 5 DAYS INCUBATION 01/16/17 22:30 Toe - Left Hallux Gram Stain - Final 01/16/17 22:30 Toe - Left Hallux Wound Culture - Final Diphtheroid/Corynebacterium a/p s/p partial amputation f/u operative cultures doyle resolved adjust antibioitics for improved renal function
[2017-01-22] MEDS ORDERED: VANCOMYCIN 1 GRAM (PRE-DOCKED) 250 ML IVPB SCH (14:30)
--- NOTE | 2017-01-22 15:02 | PN ---
Progress Note, Physician History of Present Illness: Pt seen and examined at bedside. He is awake and alert. He had abdominal pain last night. He says he does not have appetite and has not eaten anything. - Current Medication List Current Medications: Active Medications Atorvastatin Calcium (Lipitor -) 80 mg PO HS [facility] Digoxin (Lanoxin -) 0.125 mg PO DAILY [facility] Last Admin: 01/22/17 10:26 Dose: Not Given Sodium Chloride (Normal Saline -) 1,000 mls @ 83 mls/hr IV ASDIR [facility] Last Admin: 01/22/17 10:45 Dose: 83 mls/hr Vancomycin HCl (Vancomycin (Pre-Docked)) 250 mls @ 200 mls/hr IVPB DAILY@1600 [facility] Insulin Aspart (Novolog Vial Sliding Scale -) 1 vial SQ TIDAC [facility] PRN Reason: Protocol Last Admin: 01/22/17 11:57 Dose: Not Given Insulin Detemir (Levemir Vial) 10 units SQ HS [facility] Oxycodone HCl (Roxicodone -) 5 mg PO Q4H PRN PRN Reason: PAIN LEVEL 1-5 Pantoprazole Sodium (Protonix -) 40 mg PO DAILY [facility] Last Admin: 01/22/17 11:51 Dose: 40 mg Piperacillin Sod/Tazobactam Sod (Zosyn 3.375gm Ivpb (Pre-Docked)) 3.375 gm IVPB Q8H-IV [facility] PRN Reason: Protocol - Objective Vital Signs: Vital Signs Temperature 97.9 F 01/22/17 09:50 Pulse Rate 55 L 01/22/17 10:26 Respiratory Rate 18 01/22/17 09:50 Blood Pressure 145/89 01/22/17 09:50 O2 Sat by Pulse Oximetry (%) 100 01/22/17 09:50 Constitutional: Yes: Calm Eyes: Yes: Conjunctiva Clear HENT: Yes: Atraumatic Neck: Yes: Supple Cardiovascular: Yes: S1, S2 Respiratory: Yes: CTA Bilaterally Gastrointestinal: Yes: Soft, Abdomen, Obese Genitourinary: Yes: WNL Musculoskeletal: Yes: WNL Edema: Yes Edema: LLE: 1+, RLE: 1+ Integumentary: Yes: Venous Stasis Changes Wound/Incision: Yes: Dressing Dry and Intact Neurological: Yes: Oriented Labs: CBC, BMP 01/22/17 06:30 01/22/17 06:30 INR, PTT INR 1.14 (0.82-1.09) D 01/22/17 06:30 Problem List - Problems (1) Diabetes mellitus Code(s): E11.9 - TYPE 2 DIABETES MELLITUS WITHOUT COMPLICATIONS (2) Gangrene of toe of left foot Code(s): I96 - GANGRENE, NOT ELSEWHERE CLASSIFIED (3) HTN (hypertension) Code(s): I10 - ESSENTIAL (PRIMARY) HYPERTENSION (4) Acute renal insufficiency Code(s): N28.9 - DISORDER OF KIDNEY AND URETER, UNSPECIFIED Assessment/Plan Current Medications Generic Name Dose Route Start Last Admin Trade Name Freq PRN Reason Stop Dose Admin Atorvastatin Calcium 80 mg 01/22/17 22:00 Lipitor - PO HS [facility] Digoxin 0.125 mg 01/22/17 10:00 01/22/17 10:26 Lanoxin - PO Not Given DAILY [facility] Sodium Chloride 1,000 mls @ 83 mls/hr 01/22/17 09:33 01/22/17 10:45 Normal Saline - IV 83 mls/hr ASDIR [facility]LEEN Administration Vancomycin HCl 250 mls @ 200 mls/hr 01/22/17 16:00 Vancomycin (Pre-Docked) IVPB DAILY@1600 [facility] Insulin Aspart 1 vial 01/22/17 11:00 01/22/17 11:57 Novolog Vial Sliding Scale - SQ Not Given TIDAC [facility] Protocol Insulin Detemir 10 units 01/22/17 22:00 Levemir Vial SQ HS [facility] Oxycodone HCl 5 mg 01/22/17 08:52 Roxicodone - PO Q4H PRN PAIN LEVEL 1-5 Pantoprazole Sodium 40 mg 01/22/17 10:00 01/22/17 11:51 Protonix - PO 40 mg DAILY [facility] Administration Piperacillin Sod/Tazobactam Sod 3.375 gm 01/22/17 18:00 Zosyn 3.375gm Ivpb (Pre-Docked) IVPB Q8H-IV [facility] Protocol Impression 1. CKD 2. AMY 3. hypomagnesemia 4. DFU 5. left toe gangrene 6. HTN 7. a-fib 8. hx DVT and IVC filter 9. DM 10. hyperlipidemia Plan - agree with gently hydration until he starts eating - renal function is stable - monitor lytes - lesion in kidney will need further eval - abx per ID - will follow Dr Gonzalez
--- NOTE | 2017-01-22 16:16 | EKG ---
Test Reason : Blood Pressure : / mmHG Vent. Rate : 046 BPM Atrial Rate : 067 BPM P-R Int : 000 ms QRS Dur : 112 ms QT Int : 388 ms P-R-T Axes : 000 -08 -88 degrees QTc Int : 339 ms ATRIAL FIBRILLATION WITH SLOW VENTRICULAR RESPONSE LOW VOLTAGE QRS INFERIOR INFARCT (CITED ON OR BEFORE 24-OCT-2016) CANNOT RULE OUT ANTERIOR INFARCT (CITED ON OR BEFORE 04-NOV-2016) ABNORMAL ECG WHEN COMPARED WITH ECG OF 17-JAN-2017 09:48, NONSPECIFIC T WAVE ABNORMALITY, WORSE IN ANTEROLATERAL LEADS QT HAS SHORTENED Confirmed by INDIO RIDER MD ([id number]) on 01/22/2017 4:16:25 PM Referred By: MARK Confirmed By:INDIO RIDER MD
[2017-01-22] MEDS: VANCOMYCIN 1 GRAM (PRE-DOCKED) 250 ML IVPB SCH (16:58)
[2017-01-22] MEDS ORDERED: HEPARIN NA (PORCINE) 5,000 UNITS/ML 1ML VIAL IVPUSH PRN (18:30)
[2017-01-22] MEDS: PIPERACILLIN/TAZOB 3.375 GM/50 ML PRE-DOCKED IVPB SCH (18:39)
[2017-01-22] MEDS ORDERED: HEPARIN NA (PORCINE) 5,000 UNITS/ML 1ML VIAL IVPUSH ONE (19:33)
[2017-01-22] MEDS: HEPARIN - 25,000 UNIT in SODIUM CHLORIDE 495 ML IV SCH (20:16)
[2017-01-22] MEDS: INSULIN DETEMIR 100 UNITS/ML MDV SQ SCH (21:48)
[2017-01-22] MEDS: ATORVASTATIN CA 80 MG TABLET (FP) PO SCH (21:49)
[2017-01-22] MEDS ORDERED: INSULIN DETEMIR 100 UNITS/ML MDV SQ SCH (22:00)
[2017-01-23] MEDS: PIPERACILLIN/TAZOB 3.375 GM/50 ML PRE-DOCKED IVPB SCH ×3 (01:50→18:02)
[2017-01-23] MEDS: HEPARIN NA (PORCINE) 5,000 UNITS/ML 1ML VIAL IVPUSH PRN (04:00)
[2017-01-23] MEDS: INSULIN SLIDING SCALE (NOVOLOG) 1 VIAL SQ SCH ×3 (06:36→17:40)
--- NOTE | 2017-01-23 09:12 | PN ---
Progress Note (short form) - Note Progress Note: Anesthesia Post Op S:alert and awake O: Vital Signs Temperature 97.7 F 01/23/17 06:05 Pulse Rate 81 01/23/17 06:05 Respiratory Rate 20 01/23/17 06:05 Blood Pressure 139/74 01/23/17 06:05 O2 Sat by Pulse Oximetry (%) 98 01/22/17 21:00 CBC, BMP 01/22/17 06:30 01/22/17 06:30 Current Active Problems Diabetes mellitus (Acute) Gangrene of toe of left foot (Acute) HTN (hypertension) (Acute) Acute renal insufficiency (Chronic) s/p amputation of the great toe Doing well post op Continue current care Kevan Barr MD
[2017-01-23] MEDS: DIGOXIN 0.125 MG TABLET (FP) PO SCH (10:07)
[2017-01-23] MEDS: SODIUM CHLORIDE 1,000 ML IV SCH (10:07)
[2017-01-23] MEDS: PANTOPRAZOLE 40 MG TABLET (FP) PO SCH (10:07)
--- NOTE | 2017-01-23 10:15 | OP ---
DATE OF OPERATION: 01/22/2017 PREOPERATIVE DIAGNOSIS: Left great toe necrotic ulcer with osteomyelitis. POSTOPERATIVE DIAGNOSIS: Left great toe necrotic ulcer with osteomyelitis. PROCEDURES: 1. Left great toe partial amputation with bone biopsy. 2. Left 2nd toe debridement of ulcer. SURGEON: Kobe Elias DPM CLIENT PROJECT COORDINATOR: Arash Duncan, PGY3, [facility]. ANESTHESIA: Local plus sedation. HEMOSTASIS: None. ESTIMATED BLOOD LOSS: 20 mL. PATHOLOGY: Bone, left great toe. COMPLICATIONS: None. DESCRIPTION OF PROCEDURE: The patient was brought to the operating room and placed on the operating table in the supine position. Following the induction of IV sedation, local anesthesia was achieved with 12 mL of 2% lidocaine plain in a local block fashion. The left foot was then scrubbed, prepped and draped in the usual aseptic fashion. I elected to not use hemostasis during the course of this procedure. Attention was directed to the left great toe where a distal tuft necrotic ulcer probing to bone was visualized and appreciated. I began by making a circumferential fish-mouth incision at the distal tuft of the ulcer. The incision was carried down to bone, taking care to retract vital neural and vascular structures. All bleeders were cauterized and ligated as appropriate. Next, the flexor and extensor tendons were cut and removed at the interphalangeal joint of the hallux. The distal aspect of the hallux was removed subsequently from the operative field and sent to Pathology for analysis. Next, I reflected periosteum and deep capsular structures from the head of the proximal phalanx. A sagittal saw was used to resect the head of the proximal phalanx. A small sliver of bone was resected proximally to obtain a bone culture and bone pathology. An appropriate soft tissue culture was obtained, as well. The surgical site was copiously irrigated with sterile saline. The skin was reapproximated and maintained utilizing 3-0 nylon in a simple interrupted suture fashion. Attention was directed to the left 2nd toe where a distal tuft ulcer granular and stable was visualized and appreciated. Next, excisional debridement was performed to the level of subcutaneous tissue utilizing a sterile 15 blade and forceps. There was healthy granular bleeding noted and no probing noted. The surgical sites were copiously irrigated with sterile saline. The surgical sites were covered with Xeroform and a sterile compressive dressing was applied to the left foot consisting of sterile gauze, Stephanie, Kerlix and an Austin wrap. The patient tolerated the procedure and anesthesia well without complications. He was transferred from the operating room to the recovery unit with vital signs stable and neurovasculature intact to the left foot. cc: [facility] MUNA OCONNELL/[id number]
[2017-01-23] MEDS ORDERED: SODIUM CHLORIDE 1,000 ML IV SCH (10:17)
--- NOTE | 2017-01-23 10:36 | PN ---
Progress Note (short form) - Note Progress Note: currently asymptomatic. states pain controlled with tylenol. denies CP, SOB, fever, chills, N/V/C/D Current Medications Generic Name Dose Route Start Last Admin Trade Name Freq PRN Reason Stop Dose Admin Atorvastatin Calcium 80 mg 01/22/17 22:00 01/22/17 21:49 Lipitor - PO 80 mg HS [facility]EN Administration Digoxin 0.125 mg 01/22/17 10:00 01/23/17 10:07 Lanoxin - PO 0.125 mg DAILY [facility] Administration Heparin Sodium (Porcine) 1,000 unit 01/22/17 18:30 01/23/17 04:00 Heparin - IVPUSH 1,000 unit PRN PRN Administration Heparin Heparin Sodium (Porcine) 5,000 unit 01/22/17 18:30 Heparin - IVPUSH PRN PRN Heparin Vancomycin HCl 250 mls @ 200 mls/hr 01/22/17 16:00 01/22/17 16:58 Vancomycin (Pre-Docked) IVPB 200 mls/hr DAILY@1600 KATHLEEN Administration Heparin Sodium (Porcine) 25, 500 mls @ 20 mls/hr 01/22/17 18:30 01/23/17 04:00 000 unit/ Sodium Chloride IV 1,100 unit/hr TITR KATHLEEN Titration Protocol 1,000 UNIT/HR Sodium Chloride 1,000 mls @ 5 mls/hr 01/23/17 10:17 Normal Saline - IV ASDIR [facility]LEEN Insulin Aspart 1 vial 01/22/17 11:00 01/23/17 06:36 Novolog Vial Sliding Scale - SQ Not Given TIDAC [facility] Protocol Insulin Detemir 10 units 01/22/17 22:00 01/22/17 21:48 Levemir Vial SQ Not Given HS [facility] Oxycodone HCl 5 mg 01/22/17 08:52 Roxicodone - PO Q4H PRN PAIN LEVEL 1-5 Pantoprazole Sodium 40 mg 01/22/17 10:00 01/23/17 10:07 Protonix - PO 40 mg DAILY [facility] Administration Piperacillin Sod/Tazobactam Sod 3.375 gm 01/22/17 18:00 01/23/17 10:07 Zosyn 3.375gm Ivpb (Pre-Docked) IVPB 3.375 gm Q8H-IV [facility] Administration Protocol Last Vital Signs Temp Pulse Resp BP Pulse Ox 97.7 F 82 20 139/74 98 01/23/17 06:05 01/23/17 10:07 01/23/17 06:05 01/23/17 06:05 01/22/17 21:00 General NAD CV S1 S2 RRR no murmur/rub/gallop Lungs CTA B/L anteriorly Extremities L foot bandaged with dried blood ASSESSMENT AND PLAN: 56yo M with PMH DM, a fib, HTN, stage 3 CKD, PUD, UGI bleed, bilateral leg DVTs who presented to the ER and was admitted for further evaluation of their emergent condition 1. OM of the 1st and 2nd toe of L foot-s/p partial amputation of the hallux and debridement of 2nd digit 01/22. will check vanco trough tomorrow prior to 4th dose. cont Vanco/zosyn. f/u Bone Cx. will need PICC line and prison abx. PT once cleared by podiatry 2. vomiting- resolved. no repeated episodes. 3. Acute on chronic CKD-resolved. today's labs pending. hold nephrotoxic agents. neprhology on board. 4. Type 2 DM- improved. cont levemir 10 units. bgm, iss, levemir 5. HTN-currently normotensive off oral agents. cont to monitor 6. hypomagnesemia- resolved 7. Permanent atrial fibrillation-rate controlled. cont home management. hold xarelto and on hep ggt. once confirmed no more surgery will place back on xarelto 8. PUD, history of GI bleed- Continue Protonix (should remain on PPI while on anticoagulation) 9. will need PICC and prison abx. will wait for Bone cx results and then d/c planning to [facility] Visit type - Emergency Visit Emergency Visit: Yes ED Registration Date: 01/16/17 Care time: The patient presented to the Emergency Department on the above date and was hospitalized for further evaluation of their emergent condition. - New Patient This patient is new to me today: No - Critical Care Critical Care patient: No - Discharge Referral Referred to [facility] Med P.C.: No
[2017-01-23 11:13] LABS: MCH 28.7 pg (25.7-33.7); MCHC 33.3 g/dl (32.0-35.9); MEAN CELL VOLUME 86.4 fl (80-96); MEAN PLT VOLUME 7.5 fl (7.5-11.1); PLATELET COUNT 176 K/MM3 (134-434); RDW 15.4 % (11.9-15.9); WHITE BLOOD COUNT 11.1 K/mm3 (4.0-10.0)
[2017-01-23 11:29] LABS: CALCIUM 8.2 mg/dL (8.5-10.1); COCKROFT - GAULT 132.57; CREATININE 1.2 mg/dL (0.7-1.3); MAGNESIUM 1.6 mg/dL (1.8-2.4)
[2017-01-23 11:32] LABS: TROPONIN I 0.09 ng/ml (0.00-0.05)
[2017-01-23] MEDS ORDERED: MAGNESIUM OXIDE 400 MG TABLET (FP) PO ONE (12:30)
[2017-01-23] MEDS ORDERED: MAGNESIUM SULF 50% (8.12 MEQ/2 ML-1 GM VIAL) IVPB ONE (12:30)
--- NOTE | 2017-01-23 14:48 | PN ---
Progress Note (short form) - Note Progress Note: Podiatry: Seen and evaluated at bedside, NAD. Pain controlled, denies F/V/N/C/SOB/CP. S/ p L great toe partial amputation POD # 1. Afebrile, VSS. ELKE: L foot: dressing C/D/I, no active bleeding, no strikethrough. Sutures well coapted, no dehiscence. No erythema, no purulence, no fluctuance, no ascending cellulitis, no signs of active infection. Minimal tenderness to palpation. WBC: 11.1 OR Bone Cx: no growth x 24 hrs Imp: 56 year old DM, PVD M s/p L great toe partial amputation 1. C/w IV abx per ID 2. DSD L foot 3. PT for partial WB L heel with surgical shoe 4. F/u OR culture 5. Will follow Paola Elias DPM
[2017-01-23] MEDS: VANCOMYCIN 1 GRAM (PRE-DOCKED) 250 ML IVPB SCH (15:48)
--- NOTE | 2017-01-23 17:20 | PN ---
Progress Note, Physician History of Present Illness: Pt seen and examined at bedside. He is awake and alert. He denies shortness of breath. His appetite is improved. - Current Medication List Current Medications: Active Medications Atorvastatin Calcium (Lipitor -) 80 mg PO HS [facility] Last Admin: 01/22/17 21:49 Dose: 80 mg Digoxin (Lanoxin -) 0.125 mg PO DAILY [facility] Last Admin: 01/23/17 10:07 Dose: 0.125 mg Emollient Ointment (Aquaphor -) 1 applic TP DAILY [facility] Heparin Sodium (Porcine) (Heparin -) 1,000 unit IVPUSH PRN PRN PRN Reason: Heparin Last Admin: 01/23/17 04:00 Dose: 1,000 unit Heparin Sodium (Porcine) (Heparin -) 5,000 unit IVPUSH PRN PRN PRN Reason: Heparin Vancomycin HCl (Vancomycin (Pre-Docked)) 250 mls @ 200 mls/hr IVPB DAILY@1600 [facility] Last Admin: 01/23/17 15:48 Dose: 200 mls/hr Heparin Sodium (Porcine) 25, (000 unit/ Sodium Chloride) 500 mls @ 20 mls/hr IV TITR KATHLEEN; 1,000 UNIT/HR PRN Reason: Protocol Last Titration: 01/23/17 12:01 Dose: 1,100 unit/hr Sodium Chloride (Normal Saline -) 1,000 mls @ 5 mls/hr IV ASDIR [facility] Last Admin: 01/23/17 11:33 Dose: 5 mls/hr Insulin Aspart (Novolog Vial Sliding Scale -) 1 vial SQ TIDAC [facility] PRN Reason: Protocol Last Admin: 01/23/17 11:33 Dose: Not Given Insulin Detemir (Levemir Vial) 10 units SQ [facility] Last Admin: 01/22/17 21:48 Dose: Not Given Oxycodone HCl (Roxicodone -) 5 mg PO Q4H PRN PRN Reason: PAIN LEVEL 1-5 Pantoprazole Sodium (Protonix -) 40 mg PO DAILY [facility] Last Admin: 01/23/17 10:07 Dose: 40 mg Piperacillin Sod/Tazobactam Sod (Zosyn 3.375gm Ivpb (Pre-Docked)) 3.375 gm IVPB Q8H-IV [facility] PRN Reason: Protocol Last Admin: 01/23/17 10:07 Dose: 3.375 gm - Objective Vital Signs: Vital Signs Temperature 99.2 F 01/23/17 15:43 Pulse Rate 89 01/23/17 15:43 Respiratory Rate 20 01/23/17 15:43 Blood Pressure 112/70 01/23/17 15:43 O2 Sat by Pulse Oximetry (%) 94 L 01/23/17 09:00 Constitutional: Yes: Calm Eyes: Yes: Conjunctiva Clear HENT: Yes: Atraumatic Cardiovascular: Yes: S1, S2 Respiratory: Yes: CTA Bilaterally Gastrointestinal: Yes: Soft, Abdomen, Obese Genitourinary: Yes: WNL Musculoskeletal: Yes: WNL Edema: Yes Edema: LLE: 1+, RLE: 1+ Neurological: Yes: Oriented Psychiatric: Yes: Oriented Labs: CBC, BMP 01/23/17 10:30 01/23/17 10:30 INR, PTT INR 1.14 (0.82-1.09) D 01/22/17 06:30 Problem List - Problems (1) Diabetes mellitus Code(s): E11.9 - TYPE 2 DIABETES MELLITUS WITHOUT COMPLICATIONS (2) Gangrene of toe of left foot Code(s): I96 - GANGRENE, NOT ELSEWHERE CLASSIFIED (3) HTN (hypertension) Code(s): I10 - ESSENTIAL (PRIMARY) HYPERTENSION (4) Acute renal insufficiency Code(s): N28.9 - DISORDER OF KIDNEY AND URETER, UNSPECIFIED Assessment/Plan Current Medications Generic Name Dose Route Start Last Admin Trade Name Freq PRN Reason Stop Dose Admin Atorvastatin Calcium 80 mg 01/22/17 22:00 01/22/17 21:49 Lipitor - PO 80 mg HS KATHLEEN Administration Digoxin 0.125 mg 01/22/17 10:00 01/23/17 10:07 Lanoxin - PO 0.125 mg DAILY K[facility]LEEN Administration Emollient Ointment 1 applic 01/24/17 10:00 Aquaphor - TP DAILY [facility] Heparin Sodium (Porcine) 1,000 unit 01/22/17 18:30 01/23/17 04:00 Heparin - IVPUSH 1,000 unit PRN PRN Administration Heparin Heparin Sodium (Porcine) 5,000 unit 01/22/17 18:30 Heparin - IVPUSH PRN PRN Heparin Vancomycin HCl 250 mls @ 200 mls/hr 01/22/17 16:00 01/23/17 15:48 Vancomycin (Pre-Docked) IVPB 200 mls/hr DAILY@1600 KATHLEEN Administration Heparin Sodium (Porcine) 25, 500 mls @ 20 mls/hr 01/22/17 18:30 01/23/17 12:01 000 unit/ Sodium Chloride IV 1,100 unit/hr TITR KATHLEEN Titration Protocol 1,000 UNIT/HR Sodium Chloride 1,000 mls @ 5 mls/hr 01/23/17 10:17 01/23/17 11:33 Normal Saline - IV 5 mls/hr ASDIR KATHLEEN Administration Insulin Aspart 1 vial 01/22/17 11:00 01/23/17 11:33 Novolog Vial Sliding Scale - SQ Not Given TIDAC [facility] Protocol Insulin Detemir 10 units 01/22/17 22:00 01/22/17 21:48 Levemir Vial SQ Not Given HS [facility] Oxycodone HCl 5 mg 01/22/17 08:52 Roxicodone - PO Q4H PRN PAIN LEVEL 1-5 Pantoprazole Sodium 40 mg 01/22/17 10:00 01/23/17 10:07 Protonix - PO 40 mg DAILY [facility]EN Administration Piperacillin Sod/Tazobactam Sod 3.375 gm 01/22/17 18:00 01/23/17 10:07 Zosyn 3.375gm Ivpb (Pre-Docked) IVPB 3.375 gm Q8H-IV [facility]EN Administration Protocol Impression 1. CKD 2. AMY 3. hypomagnesemia 4. DFU 5. left toe gangrene 6. HTN 7. a-fib 8. hx DVT and IVC filter 9. DM 10. hyperlipidemia Plan - renal function is stable - will need renal workup as outpt - can stop fluids - replace magnesium - lesion in kidney will need further eval - abx per ID - will follow Dr Gonzalez
[2017-01-23] MEDS: HEPARIN - 25,000 UNIT in SODIUM CHLORIDE 495 ML IV SCH (18:02)
[2017-01-23] MEDS: ATORVASTATIN CA 80 MG TABLET (FP) PO SCH (22:25)
[2017-01-23] MEDS: INSULIN DETEMIR 100 UNITS/ML MDV SQ SCH (22:25)
[2017-01-24] MEDS: PIPERACILLIN/TAZOB 3.375 GM/50 ML PRE-DOCKED IVPB SCH ×3 (01:40→18:17)
[2017-01-24 07:54] LABS: MCH 28.6 pg (25.7-33.7); MCHC 33.1 g/dl (32.0-35.9); MEAN CELL VOLUME 86.4 fl (80-96); MEAN PLT VOLUME 7.7 fl (7.5-11.1); PLATELET COUNT 165 K/MM3 (134-434); RDW 15.6 % (11.9-15.9); WHITE BLOOD COUNT 8.9 K/mm3 (4.0-10.0)
[2017-01-24] MEDS: INSULIN SLIDING SCALE (NOVOLOG) 1 VIAL SQ SCH ×3 (08:26→16:43)
[2017-01-24 08:27] LABS: COCKROFT - GAULT 132.68; CREATININE 1.2 mg/dL (0.7-1.3); MAGNESIUM 1.9 mg/dL (1.8-2.4)
--- NOTE | 2017-01-24 08:29 | PN ---
Progress Note (short form) - Note Progress Note: currently asymptomatic. only mild difficulty ambulating to bathroom with foot. heel bearing only. denies CP, SOB,fever, chills, N/V/C/D Current Medications Generic Name Dose Route Start Last Admin Trade Name Freq PRN Reason Stop Dose Admin Atorvastatin Calcium 80 mg 01/22/17 22:00 01/23/17 22:25 Lipitor - PO 80 mg HS K[facility]LEEN Administration Digoxin 0.125 mg 01/22/17 10:00 01/23/17 10:07 Lanoxin - PO 0.125 mg DAILY KATHLEEN Administration Emollient Ointment 1 applic 01/24/17 10:00 Aquaphor - TP DAILY [facility] Heparin Sodium (Porcine) 1,000 unit 01/22/17 18:30 01/23/17 04:00 Heparin - IVPUSH 1,000 unit PRN PRN Administration Heparin Heparin Sodium (Porcine) 5,000 unit 01/22/17 18:30 Heparin - IVPUSH PRN PRN Heparin Vancomycin HCl 250 mls @ 200 mls/hr 01/22/17 16:00 01/23/17 15:48 Vancomycin (Pre-Docked) IVPB 200 mls/hr DAILY@1600 K[facility]LEEN Administration Heparin Sodium (Porcine) 25, 500 mls @ 20 mls/hr 01/22/17 18:30 01/23/17 18:02 000 unit/ Sodium Chloride IV 22 mls/hr TITR KATHLEEN Administration Protocol 1,000 UNIT/HR Sodium Chloride 1,000 mls @ 5 mls/hr 01/23/17 10:17 01/23/17 11:33 Normal Saline - IV 5 mls/hr ASDIR [facility]LEEN Administration Insulin Aspart 1 vial 01/22/17 11:00 01/24/17 08:26 Novolog Vial Sliding Scale - SQ Not Given TIDAC [facility] Protocol Insulin Detemir 10 units 01/22/17 22:00 01/23/17 22:25 Levemir Vial SQ Not Given HS [facility] Oxycodone HCl 5 mg 01/22/17 08:52 Roxicodone - PO Q4H PRN PAIN LEVEL 1-5 Pantoprazole Sodium 40 mg 01/22/17 10:00 01/23/17 10:07 Protonix - PO 40 mg DAILY KATHLEEN Administration Piperacillin Sod/Tazobactam Sod 3.375 gm 01/22/17 18:00 01/24/17 01:40 Zosyn 3.375gm Ivpb (Pre-Docked) IVPB 3.375 gm Q8H-IV K[facility]LEEN Administration Protocol Last Vital Signs Temp Pulse Resp BP Pulse Ox 97 F L 80 20 131/81 94 L 01/24/17 06:00 01/24/17 06:00 01/24/17 06:00 01/24/17 06:00 01/23/17 21:00 General NAD CV S1 S2 RRR no murmur/rub/gallop Lungs CTA B/L anteriorly Extremities L foot bandaged dressing c/d/i CBCD WBC 8.9 K/mm3 (4.0-10.0) 01/24/17 07:00 RBC 3.15 M/mm3 (4.00-5.60) L 01/24/17 07:00 Hgb 9.0 GM/dL (11.7-16.9) L 01/24/17 07:00 Hct 27.2 % (35.4-49) L 01/24/17 07:00 MCV 86.4 fl (80-96) 01/24/17 07:00 MCHC 33.1 g/dl (32.0-35.9) 01/24/17 07:00 RDW 15.6 % (11.9-15.9) 01/24/17 07:00 Plt Count 165 K/MM3 (134-434) 01/24/17 07:00 MPV 7.7 fl (7.5-11.1) 01/24/17 07:00 CMP Sodium 142 mmol/L (136-145) 01/24/17 07:00 Potassium 3.7 mmol/L (3.5-5.1) 01/24/17 07:00 Chloride 109 mmol/L (98-107) H 01/24/17 07:00 Carbon Dioxide 26 mmol/L (21-32) 01/24/17 07:00 Anion Gap 7 (8-16) L 01/24/17 07:00 BUN 7 mg/dL (7-18) 01/24/17 07:00 Creatinine 1.2 mg/dL (0.7-1.3) 01/24/17 07:00 Creat Clearance w eGFR > 60 (>60) 01/21/17 06:30 Calcium 8.0 mg/dL (8.5-10.1) L 01/24/17 07:00 Total Bilirubin 0.3 mg/dL (0.2-1.0) D 01/21/17 06:30 AST 14 U/L (15-37) L 01/21/17 06:30 ALT 12 U/L (12-78) 01/21/17 06:30 Alkaline Phosphatase 111 U/L (45-117) 01/21/17 06:30 Total Protein 6.7 g/dl (6.4-8.2) D 01/21/17 06:30 Albumin 2.3 g/dl (3.4-5.0) L D 01/21/17 06:30 Microbiology 01/22/17 08:45 Gram Stain - Final Bone Tissue Culture - Preliminary NO AEROBIC GROWTH, 24 HRS 01/22/17 08:45 Gram Stain - Final Toe - Left Hallux Wound Culture - Preliminary Corynebacterium Species ASSESSMENT AND PLAN: 56yo M with PMH DM, a fib, HTN, stage 3 CKD, PUD, UGI bleed, bilateral leg DVTs who presented to the ER and was admitted for further evaluation of their emergent condition 1. OM of the 1st and 2nd toe of L foot-s/p partial amputation of the hallux and debridement of 2nd digit 01/22. will check vanco trough today prior to 4th dose. cont Vanco/zosyn. f/u Bone Cx. will need PICC line and termite treater abx. PT with heel bearing to L foot 2. vomiting- resolved. no repeated episodes. 3. Acute on chronic CKD-resolved. today's labs pending. hold nephrotoxic agents. neprhology on board. 4. Type 2 DM- controlled. cont levemir 10 units. bgm, iss, levemir 5. HTN-currently normotensive off oral agents. cont to monitor 6. hypomagnesemia- resolved 7. Permanent atrial fibrillation-rate controlled. cont home management. hold xarelto and on hep ggt. once confirmed no more surgery will place back on xarelto 8. PUD, history of GI bleed- Continue Protonix (should remain on PPI while on anticoagulation) 9. will need PICC and mcc abx. will wait for Bone cx results and then d/c planning to [facility] Visit type - Emergency Visit Emergency Visit: Yes ED Registration Date: 01/16/17 Care time: The patient presented to the Emergency Department on the above date and was hospitalized for further evaluation of their emergent condition. - New Patient This patient is new to me today: No - Critical Care Critical Care patient: No - Discharge Referral Referred to [facility] Med P.C.: No
[2017-01-24] MEDS ORDERED: MAGNESIUM OXIDE 400 MG TABLET (FP) PO ONE (09:00)
[2017-01-24] MEDS: MINERAL OIL/PET HY-PHL TOPICAL OINTMENT 454 GM JAR TP SCH (10:02)
[2017-01-24] MEDS: DIGOXIN 0.125 MG TABLET (FP) PO SCH (10:17)
[2017-01-24] MEDS: PANTOPRAZOLE 40 MG TABLET (FP) PO SCH (10:18)
[2017-01-24] MEDS: HEPARIN NA (PORCINE) 5,000 UNITS/ML 1ML VIAL IVPUSH PRN (10:25)
--- NOTE | 2017-01-24 10:47 | PN ---
Progress Note (short form) - Note Progress Note: Podiatry: Seen and evaluated at bedside, NAD. Pain controlled, denies F/V/N/C/SOB/CP. S/ p L hallux partial amputation. Afebrile, VSS. ELKE: L foot: dressing C/D/I, no active bleeding, no strikethrough. Sutures well coapted, no dehiscence. Minimal periwound erythema. No purulent drainage, no fluctuance, no soft tissue crepitus, no ascending cellulitis, no signs of active infection. Minimal tenderness to palpation. WBC: 8.9 OR Bone Cx: no growth x 24 hrs Imp: 56 year old DM M s/p L great toe partial amputation 1. IV abx per ID 2. DSD L foot 3. Partial WB L heel 4. F/u final OR bone culture 5. Will follow Paola Elias DPM
[2017-01-24] MEDS: VANCOMYCIN 1 GRAM (PRE-DOCKED) 250 ML IVPB SCH (15:43)
--- NOTE | 2017-01-24 15:54 | PN ---
Progress Note, Physician History of Present Illness: Pt seen and examined at bedside. He is awake and alert. He denies dysuria or hematuria. - Current Medication List Current Medications: Active Medications Atorvastatin Calcium (Lipitor -) 80 mg PO HS [facility] Last Admin: 01/23/17 22:25 Dose: 80 mg Digoxin (Lanoxin -) 0.125 mg PO DAILY KATHLEEN Last Admin: 01/24/17 10:17 Dose: 0.125 mg Emollient Ointment (Aquaphor -) 1 applic TP DAILY [facility] Last Admin: 01/24/17 10:02 Dose: 1 applic Heparin Sodium (Porcine) (Heparin -) 1,000 unit IVPUSH PRN PRN PRN Reason: Heparin Last Admin: 01/24/17 10:25 Dose: 1,000 unit Heparin Sodium (Porcine) (Heparin -) 5,000 unit IVPUSH PRN PRN PRN Reason: Heparin Vancomycin HCl (Vancomycin (Pre-Docked)) 250 mls @ 200 mls/hr IVPB DAILY@1600 [facility] Last Admin: 01/23/17 15:48 Dose: 200 mls/hr Heparin Sodium (Porcine) 25, (000 unit/ Sodium Chloride) 500 mls @ 20 mls/hr IV TITR KATHLEEN; 1,000 UNIT/HR PRN Reason: Protocol Last Titration: 01/24/17 10:20 Dose: 24 unit/hr Insulin Aspart (Novolog Vial Sliding Scale -) 1 vial SQ TIDAC KATHLEEN PRN Reason: Protocol Last Admin: 01/24/17 12:03 Dose: Not Given Insulin Detemir (Levemir Vial) 10 units SQ HS [facility] Last Admin: 01/23/17 22:25 Dose: Not Given Oxycodone HCl (Roxicodone -) 5 mg PO Q4H PRN PRN Reason: PAIN LEVEL 1-5 Pantoprazole Sodium (Protonix -) 40 mg PO DAILY [facility] Last Admin: 01/24/17 10:18 Dose: 40 mg Piperacillin Sod/Tazobactam Sod (Zosyn 3.375gm Ivpb (Pre-Docked)) 3.375 gm IVPB Q8H-IV KATHLEEN PRN Reason: Protocol Last Admin: 01/24/17 10:18 Dose: 3.375 gm - Objective Vital Signs: Vital Signs Temperature 97.7 F 01/24/17 14:19 Pulse Rate 64 01/24/17 14:19 Respiratory Rate 18 01/24/17 14:19 Blood Pressure 107/64 01/24/17 14:19 O2 Sat by Pulse Oximetry (%) 97 01/24/17 09:00 Constitutional: Yes: Calm Eyes: Yes: Conjunctiva Clear HENT: Yes: Atraumatic Neck: Yes: Supple Cardiovascular: Yes: S1, S2 Respiratory: Yes: CTA Bilaterally Gastrointestinal: Yes: Soft, Abdomen, Obese Genitourinary: Yes: WNL Edema: Yes Wound/Incision: Yes: Dressing Dry and Intact Neurological: Yes: Oriented Psychiatric: Yes: Oriented Labs: CBC, BMP 01/24/17 07:00 01/24/17 07:00 INR, PTT INR 1.14 (0.82-1.09) D 01/22/17 06:30 Problem List - Problems (1) Diabetes mellitus Code(s): E11.9 - TYPE 2 DIABETES MELLITUS WITHOUT COMPLICATIONS (2) Gangrene of toe of left foot Code(s): I96 - GANGRENE, NOT ELSEWHERE CLASSIFIED (3) HTN (hypertension) Code(s): I10 - ESSENTIAL (PRIMARY) HYPERTENSION (4) Acute renal insufficiency Code(s): N28.9 - DISORDER OF KIDNEY AND URETER, UNSPECIFIED Assessment/Plan Current Medications Generic Name Dose Route Start Last Admin Trade Name Freq PRN Reason Stop Dose Admin Atorvastatin Calcium 80 mg 01/22/17 22:00 01/23/17 22:25 Lipitor - PO 80 mg HS KATHLEEN Administration Digoxin 0.125 mg 01/22/17 10:00 01/24/17 10:17 Lanoxin - PO 0.125 mg DAILY KATHLEEN Administration Emollient Ointment 1 applic 01/24/17 10:00 01/24/17 10:02 Aquaphor - TP 1 applic DAILY KATHLEEN Administration Heparin Sodium (Porcine) 1,000 unit 01/22/17 18:30 01/24/17 10:25 Heparin - IVPUSH 1,000 unit PRN PRN Administration Heparin Heparin Sodium (Porcine) 5,000 unit 01/22/17 18:30 Heparin - IVPUSH PRN PRN Heparin Vancomycin HCl 250 mls @ 200 mls/hr 01/22/17 16:00 01/23/17 15:48 Vancomycin (Pre-Docked) IVPB 200 mls/hr DAILY@1600 KATHLEEN Administration Heparin Sodium (Porcine) 25, 500 mls @ 20 mls/hr 01/22/17 18:30 01/24/17 10:20 000 unit/ Sodium Chloride IV 24 unit/hr TITR KATHLEEN Titration Protocol 1,000 UNIT/HR Insulin Aspart 1 vial 01/22/17 11:00 01/24/17 12:03 Novolog Vial Sliding Scale - SQ Not Given TIDAC KATHLEEN Protocol Insulin Detemir 10 units 01/22/17 22:00 01/23/17 22:25 Levemir Vial SQ Not Given HS KATHLEEN Oxycodone HCl 5 mg 01/22/17 08:52 Roxicodone - PO Q4H PRN PAIN LEVEL 1-5 Pantoprazole Sodium 40 mg 01/22/17 10:00 01/24/17 10:18 Protonix - PO 40 mg DAILY KATHLEEN Administration Piperacillin Sod/Tazobactam Sod 3.375 gm 01/22/17 18:00 01/24/17 10:18 Zosyn 3.375gm Ivpb (Pre-Docked) IVPB 3.375 gm Q8H-IV KATHLEEN Administration Protocol Impression 1. CKD 2. AMY 3. hypomagnesemia 4. DFU 5. left toe gangrene 6. HTN 7. a-fib 8. hx DVT and IVC filter 9. DM 10. hyperlipidemia Plan - renal function is stable for now - will hold off diuretics - pt now off of fluids - cont wound care - abx per ID - lesion in kidney will need further eval - will follow Dr Gonzalez
[2017-01-24] MEDS ORDERED: PT OWN MED DRAWER 7, Y5N ONE (16:40)
[2017-01-24] MEDS ORDERED: INSULIN (NOVOLOG MIX 70/30) 100 UNITS/ML MDV SQ ONE (17:06)
[2017-01-24] MEDS ORDERED: INSULIN DETEMIR 100 UNITS/ML MDV SQ ONE (17:06)
[2017-01-24] MEDS ORDERED: INSULIN (NOVOLOG) ASPART 100 UNITS/ML 10ML VIAL ONE (17:06)
[2017-01-24] MEDS: HEPARIN - 25,000 UNIT in SODIUM CHLORIDE 495 ML IV SCH (18:16)
[2017-01-24] MEDS: ATORVASTATIN CA 80 MG TABLET (FP) PO SCH (21:17)
[2017-01-24] MEDS: INSULIN DETEMIR 100 UNITS/ML MDV SQ SCH (21:18)
[2017-01-25] MEDS: PIPERACILLIN/TAZOB 3.375 GM/50 ML PRE-DOCKED IVPB SCH ×2 (01:08→09:06)
[2017-01-25] MEDS ORDERED: PT OWN MED DRAWER 7, Y5N ONE (07:38)
[2017-01-25 07:47] LABS: MCH 28.6 pg (25.7-33.7); MEAN CELL VOLUME 86.6 fl (80-96); MEAN PLT VOLUME 7.8 fl (7.5-11.1); PLATELET COUNT 166 K/MM3 (134-434); RDW 15.7 % (11.9-15.9); WHITE BLOOD COUNT 7.6 K/mm3 (4.0-10.0)
[2017-01-25] MEDS: INSULIN SLIDING SCALE (NOVOLOG) 1 VIAL SQ SCH ×3 (08:11→17:10)
[2017-01-25 08:34] LABS: CALCIUM 7.8 mg/dL (8.5-10.1); COCKROFT - GAULT 134.51; CREATININE 1.2 mg/dL (0.7-1.3); MAGNESIUM 1.7 mg/dL (1.8-2.4)
[2017-01-25] MEDS: MINERAL OIL/PET HY-PHL TOPICAL OINTMENT 454 GM JAR TP SCH (09:06)
[2017-01-25] MEDS: DIGOXIN 0.125 MG TABLET (FP) PO SCH (09:06)
[2017-01-25] MEDS: PANTOPRAZOLE 40 MG TABLET (FP) PO SCH (09:07)
[2017-01-25] MEDS ORDERED: MAGNESIUM SULF 50% (8.12 MEQ/2 ML-1 GM VIAL) IVPB ONE (09:30)
[2017-01-25] MEDS ORDERED: VANCOMYCIN 1,500 MG in DEXTROSE 5%-WATER - 500 ML IVPB ONE ×2 (12:15→14:52)
--- NOTE | 2017-01-25 13:30 | PN ---
Teaching Attending Note Name of Resident: Stephanie Mathew ATTENDING PHYSICIAN STATEMENT I saw and evaluated the patient. I reviewed the resident's note and discussed the case with the resident. I agree with the resident's findings and plan as documented. SUBJECTIVE:currently asymptomatic. denies CP, SOB,fever, chills, n/V/C/D OBJECTIVE: Last Vital Signs Temp Pulse Resp BP Pulse Ox 98.7 F 71 18 154/78 98 01/25/17 10:00 01/25/17 10:00 01/25/17 10:00 01/25/17 10:00 01/25/17 09:00 General NAD Extremities L foot wrapped c/d/i ASSESSMENT AND PLAN: 56yo M with PMH DM, a fib, HTN, stage 3 CKD, PUD, UGI bleed, bilateral leg DVTs who presented to the ER and was admitted for further evaluation of their emergent condition 1. OM of the 1st and 2nd toe of L foot-s/p partial amputation of the hallux and debridement of 2nd digit 01/22. Vanco trough remains subtherapeutic. will increase vanco to 1500mg, will need to have repeat trough checked 01/28. cont Zosyn. will need weekly ESR/CRP. tunneled catheter today. PT with heel bearing to L foot 2. vomiting- resolved. no repeated episodes. 3. Acute on chronic CKD-resolved. will need to follow up with renal as outpatient for bx. hold nephrotoxic agents. neprhology on board. 4. Type 2 DM- controlled. cont levemir 10 units. bgm, iss, levemir 5. HTN-currently normotensive off oral agents. cont to monitor 6. hypomagnesemia- Mg 800mg 7. Permanent atrial fibrillation-rate controlled. cont home management. re- start Xarelto today after tunneled catheter placement 8. CHF- no signs of volume overload. all diuretics held due to AMY, now resolved. will re-start lasix 40mg daily and have further adjustment done as outpatient (can re-start aldactone and toresmide as needed) 9. PUD, history of GI bleed- Continue Protonix (should remain on PPI while on anticoagulation) 10. d/c planning to [facility] with tunneled cathter for total abx therapy of 6-8W.
[2017-01-25 14:48] VITALS: BP 132/84; PULSE 80; TEMP 98.8
--- NOTE | 2017-01-25 14:57 | PN ---
Progress Note, Physician History of Present Illness: Pt seen and examined at bedside. He has no complaints today. - Current Medication List Current Medications: Active Medications Atorvastatin Calcium (Lipitor -) 80 mg PO HS [facility] Last Admin: 01/24/17 21:17 Dose: 80 mg Digoxin (Lanoxin -) 0.125 mg PO DAILY [facility] Last Admin: 01/25/17 09:06 Dose: 0.125 mg Emollient Ointment (Aquaphor -) 1 applic TP DAILY [facility] Last Admin: 01/25/17 09:06 Dose: 1 applic Vancomycin HCl 1,500 mg/ (Dextrose) 250 mls @ 250 mls/hr IVPB Q24H [facility] Vancomycin HCl 1,500 mg/ (Dextrose) 500 mls @ 250 mls/hr IVPB DAILY ONE PRN Reason: Protocol Stop: 01/25/17 16:51 Insulin Aspart (Novolog Vial Sliding Scale -) 1 vial SQ TIDAC [facility] PRN Reason: Protocol Last Admin: 01/25/17 11:27 Dose: Not Given Insulin Detemir (Levemir Vial) 10 units SQ [facility] Last Admin: 01/24/17 21:18 Dose: Not Given Oxycodone HCl (Roxicodone -) 5 mg PO Q4H PRN PRN Reason: PAIN LEVEL 1-5 Pantoprazole Sodium (Protonix -) 40 mg PO DAILY [facility] Last Admin: 01/25/17 09:07 Dose: 40 mg Piperacillin Sod/Tazobactam Sod (Zosyn 3.375gm Ivpb (Pre-Docked)) 3.375 gm IVPB Q8H-IV [facility] PRN Reason: Protocol Last Admin: 01/25/17 09:06 Dose: 3.375 gm - Objective Vital Signs: Vital Signs Temperature 98.8 F 01/25/17 14:00 Pulse Rate 80 01/25/17 14:00 Respiratory Rate 18 01/25/17 14:00 Blood Pressure 132/84 01/25/17 14:00 O2 Sat by Pulse Oximetry (%) 98 01/25/17 09:00 Constitutional: Yes: Calm Eyes: Yes: Conjunctiva Clear HENT: Yes: Atraumatic Neck: Yes: Supple Cardiovascular: Yes: S1, S2 Respiratory: Yes: CTA Bilaterally Gastrointestinal: Yes: Normal Bowel Sounds, Soft, Abdomen, Obese Genitourinary: Yes: WNL Musculoskeletal: Yes: WNL Edema: Yes Edema: LLE: Trace, RLE: Trace Integumentary: Yes: Venous Stasis Changes Wound/Incision: Yes: Dressing Dry and Intact Neurological: Yes: Oriented Psychiatric: Yes: Oriented Labs: CBC, BMP 01/25/17 06:30 01/25/17 06:30 INR, PTT INR 1.14 (0.82-1.09) D 01/22/17 06:30 Problem List - Problems (1) Diabetes mellitus Code(s): E11.9 - TYPE 2 DIABETES MELLITUS WITHOUT COMPLICATIONS (2) Gangrene of toe of left foot Code(s): I96 - GANGRENE, NOT ELSEWHERE CLASSIFIED (3) HTN (hypertension) Code(s): I10 - ESSENTIAL (PRIMARY) HYPERTENSION (4) Acute renal insufficiency Code(s): N28.9 - DISORDER OF KIDNEY AND URETER, UNSPECIFIED Assessment/Plan Current Medications Generic Name Dose Route Start Last Admin Trade Name Freq PRN Reason Stop Dose Admin Atorvastatin Calcium 80 mg 01/22/17 22:00 01/24/17 21:17 Lipitor - PO 80 mg HS KATHLEEN Administration Digoxin 0.125 mg 01/22/17 10:00 01/25/17 09:06 Lanoxin - PO 0.125 mg DAILY KATHLEEN Administration Emollient Ointment 1 applic 01/24/17 10:00 01/25/17 09:06 Aquaphor - TP 1 applic DAILY KATHLEEN Administration Vancomycin HCl 1,500 mg/ 250 mls @ 250 mls/hr 01/25/17 16:00 Dextrose IVPB Q24H KATHLEEN Vancomycin HCl 1,500 mg/ 500 mls @ 250 mls/hr 01/25/17 14:52 Dextrose IVPB 01/25/17 16:51 DAILY ONE Protocol Insulin Aspart 1 vial 01/22/17 11:00 01/25/17 11:27 Novolog Vial Sliding Scale - SQ Not Given TIDAC KATHLEEN Protocol Insulin Detemir 10 units 01/22/17 22:00 01/24/17 21:18 Levemir Vial SQ Not Given HS KATHLEEN Oxycodone HCl 5 mg 01/22/17 08:52 Roxicodone - PO Q4H PRN PAIN LEVEL 1-5 Pantoprazole Sodium 40 mg 01/22/17 10:00 01/25/17 09:07 Protonix - PO 40 mg DAILY KATHLEEN Administration Piperacillin Sod/Tazobactam Sod 3.375 gm 01/22/17 18:00 01/25/17 09:06 Zosyn 3.375gm Ivpb (Pre-Docked) IVPB 3.375 gm Q8H-IV KATHLEEN Administration Protocol Impression 1. CKD 2. AMY 3. hypomagnesemia 4. DFU 5. left toe gangrene 6. HTN 7. a-fib 8. hx DVT and IVC filter 9. DM 10. hyperlipidemia Plan - restart mag supplements - renal function stable - will see in office - will restart torsemide today - repeat labs in am - restart mag supplements - cont wound care - abx per ID - lesion in kidney will need further eval - will follow Dr Gonzalez
[2017-01-25] MEDS ORDERED: POTASSIUM CHLORIDE TABS 20 MEQ TABLET.ER (FP) PO ONE (14:58)
[2017-01-25] MEDS ORDERED: TORSEMIDE 20 MG TABLET (FP) PO SCH (15:00)
[2017-01-25] MEDS ORDERED: VANCOMYCIN 1,500 MG in DEXTROSE 5%-WATER - 250 ML IVPB SCH (16:00)
--- NOTE | 2017-01-25 16:17 | DS ---
Physical Exam: SUBJECTIVE: Patient seen and examined by me at bedside. No overnight events noted. Patient offers no complaints and denies any fever, chills, nausea, vomiting, chest pain, palpitations, shortness of breath, abdominal pain, dizziness. OBJECTIVE: Vital Signs Period Temp Pulse Resp BP Sys/Dial Pulse Ox Last 24 Hr 98.2 F-98.8 F 68-80 18-20 119-154/66-84 97-98 PHYSICAL EXAM GENERAL: The patient is awake, alert, and fully oriented, in no acute distress. LUNGS: Breath sounds equal, clear to auscultation bilaterally, no wheezes, no crackles, no accessory muscle use. HEART: Regular rate and rhythm, S1, S2 without murmur, rub or gallop. ABDOMEN: Soft, nontender, nondistended, normoactive bowel sounds, no guarding, no rebound, no masses. EXTREMITIES: Left lower extremity dressing c/d/i without any drainage. LABS Laboratory Results - last 24 hr 01/24/17 01/24/17 01/24/17 16:36 18:45 21:16 WBC RBC Hgb Hct MCV MCHC RDW Plt Count MPV PTT (Actin FS) 56.9 H D Sodium Potassium Chloride Carbon Dioxide Anion Gap BUN Creatinine POC Glucometer 120 143 Random Glucose Calcium Magnesium 01/25/17 01/25/17 01/25/17 06:04 06:30 06:30 WBC 7.6 RBC 3.10 L Hgb 8.9 L Hct 26.8 L MCV 86.6 MCHC 33.0 RDW 15.7 Plt Count 166 MPV 7.8 PTT (Actin FS) Sodium 142 Potassium 3.7 Chloride 108 H Carbon Dioxide 26 Anion Gap 8 BUN 6 L Creatinine 1.2 POC Glucometer 120 Random Glucose 111 H Calcium 7.8 L Magnesium 1.7 L 01/25/17 01/25/17 07:00 11:26 WBC RBC Hgb Hct MCV MCHC RDW Plt Count MPV PTT (Actin FS) 37.9 H D Sodium Potassium Chloride Carbon Dioxide Anion Gap BUN Creatinine POC Glucometer 121 Random Glucose Calcium Magnesium Foot X-ray (01/16/17): No bone destruction. Will need Three phase bone scan Duplex Of Bilateral Extremities (01/16/17): No DVT's Chest X-ray (01/17/17): No acute process Bladder/Renal U/S (01/17/17): Mass-like density in the left kidney Triple phase bone scan (01/17/17): Findings suggestive of osteomyelitis involving the first and second toe of left foot HOSPITAL COURSE: Patient is a 56 year old male with a PMHx of DM II, A.Fib, HTN, CKD stage 3, peptic ulcer disease, Upper GI bleed, bilateral DVT's who presented because of left Hallux toenail falling off. Patient's Hallux found to be gangrenous and necrotic as well as with the second toe. On MRI patient was found to have osteomyelitis and was on IV abx Zosyn and Vancomycin throughout the hospital course. Throughout the course patient was also found AMY and hypomagnesemia which was IV fluids and magnesium sulfate. All nephrotoxic medications were held. Eventually AMY resolved and hypomagnesemia improve Patient was sent for angiogram and partial amputation of left hallux and second toe with no complications. Wound cultures, blood cultures, and bone cultures were negative. Patient had Tunnel catheter placed for continuation of IV abx Zosyn and Vancomycin. Because cultures were negative, patient is to be sent with a short course of IV abx for about a week. Patient was accepted to [facility] for further rehab and assistance. Date of Admission:01/16/17 Date of Discharge: 01/25/17 Minutes to complete discharge: 45 Discharge Summary Reason For Visit: RENAL INSUFFICIENCY GANGRENE L FOOT Current Active Problems Acute renal insufficiency (Acute) Gangrene of toe of left foot (Acute) Osteomyelitis (Acute) Atrial fibrillation (Chronic) DVT (deep venous thrombosis) (Chronic) Diabetes mellitus (Chronic) HTN (hypertension) (Chronic) Condition: Stable - Instructions Diet, Activity, Other Instructions: -You were admitted for infection of the foot and you will need to complete IV antibiotics for another 7 days. -You may resume your regular diet, which is a diabetic controlled diet -You need to continue with physical therapy -If you experience any worsening symptoms such as fever >101.0 F, severe foot pain, severe nausea and vomiting, return to the emergency department. -Follow up with your assistant health educator within a week -Follow up with your primary care within a week -You will need to follow up with the kidney doctor within a week -You will need to follow up with infectious disease within a week to repeat blood work Referrals: Kobe Elias MD [Staff Physician] - Mahin Gonzalez MD [Staff Physician] - Trever Perdomo MD [Staff Physician] - Disposition: ALF FACILITY - Home Medications Comprehensive Discharge Medication List: Ambulatory Orders Apixaban [Eliquis -] 10 mg PO BID tablet 10/29/16 Digoxin [Lanoxin -] 0.125 mg PO DAILY tablet 10/29/16 Furosemide [Lasix -] 40 mg PO BID@0600,1400 tablet 10/29/16 Insulin Sliding Scale [Novolog Vial Sliding Scale -] 1 vial SQ ACHS units 10/29 Spironolactone [Aldactone -] 25 mg PO BID tablet 10/29/16 Sucralfate [Carafate -] 1 gm PO BID tablet 10/29/16 Torsemide [Demadex -] 40 mg PO BID@0600,1800 tablet 10/29/16 Atorvastatin Ca [Lipitor] 80 mg PO HS tablet 01/25/17 Insulin (Levemir) [Levemir Vial] 10 units SQ HS ml 01/25/17 Magnesium Oxide [Mag-Ox -] 400 mg PO BID tablet 01/25/17 Oxycodone HCl [Roxicodone -] 5 mg PO Q4H PRN #0 tablet MDD 5 01/25/17 Piperacillin/Tazob 3.375 gm [Zosyn 3.375GM Ivpb (Pre-Docked)] 3.375 gm IVPB Q8H- IV bag 01/25/17 Vancomycin 1,500 mg IVPB Q24H vial 01/25/17 This patient is new to me today: No Emergency Visit: Yes ED Registration Date: 01/16/17 Care time: The patient presented to the Emergency Department on the above date and was hospitalized for further evaluation of their emergent condition. Critical Care patient: No - Discharge Referral Referred to [facility] Med P.C.: No
--- NOTE | 2017-01-25 16:24 | PN ---
Physical Exam: SUBJECTIVE: Patient seen and examined s/p amputation and debridement left foot great toe. no complains denies fever, chills, denies discharge from wound OBJECTIVE: Vital Signs Period Temp Pulse Resp BP Sys/Dial Pulse Ox Last 24 Hr 98.2 F-98.8 F 68-80 18-20 119-154/66-84 97-98 GENERAL: The patient is awake, alert, and fully oriented, in no acute distress. LUNGS: Breath sounds equal, clear to auscultation bilaterally, HEART: s1s2 normal EXTREMITIES: suture line healthy, no discharge. PSYCH: Normal mood, normal affect. SKIN: Warm, dry, Laboratory Results - last 24 hr 01/24/17 01/24/17 01/24/17 16:36 18:45 21:16 WBC RBC Hgb Hct MCV MCHC RDW Plt Count MPV PTT (Actin FS) 56.9 H D Sodium Potassium Chloride Carbon Dioxide Anion Gap BUN Creatinine POC Glucometer 120 143 Random Glucose Calcium Magnesium 01/25/17 01/25/17 01/25/17 06:04 06:30 06:30 WBC 7.6 RBC 3.10 L Hgb 8.9 L Hct 26.8 L MCV 86.6 MCHC 33.0 RDW 15.7 Plt Count 166 MPV 7.8 PTT (Actin FS) Sodium 142 Potassium 3.7 Chloride 108 H Carbon Dioxide 26 Anion Gap 8 BUN 6 L Creatinine 1.2 POC Glucometer 120 Random Glucose 111 H Calcium 7.8 L Magnesium 1.7 L 01/25/17 01/25/17 07:00 11:26 WBC RBC Hgb Hct MCV MCHC RDW Plt Count MPV PTT (Actin FS) 37.9 H D Sodium Potassium Chloride Carbon Dioxide Anion Gap BUN Creatinine POC Glucometer 121 Random Glucose Calcium Magnesium Active Medications Generic Name Dose Route Start Last Admin Trade Name Freq PRN Reason Stop Dose Admin Atorvastatin Calcium 80 mg 01/22/17 22:00 01/24/17 21:17 Lipitor - PO 80 mg HS KATHLEEN Administration Digoxin 0.125 mg 01/22/17 10:00 01/25/17 09:06 Lanoxin - PO 0.125 mg DAILY KATHLEEN Administration Emollient Ointment 1 applic 01/24/17 10:00 01/25/17 09:06 Aquaphor - TP 1 applic DAILY KATHLEEN Administration Vancomycin HCl 1,500 mg/ 250 mls @ 250 mls/hr 01/25/17 16:00 Dextrose IVPB Q24H [facility] Vancomycin HCl 1,500 mg/ 500 mls @ 250 mls/hr 01/25/17 14:52 Dextrose IVPB 01/25/17 16:51 DAILY ONE Protocol Insulin Aspart 1 vial 01/22/17 11:00 01/25/17 11:27 Novolog Vial Sliding Scale - SQ Not Given TIDAC [facility] Protocol Insulin Detemir 10 units 01/22/17 22:00 01/24/17 21:18 Levemir Vial SQ Not Given HS [facility] Magnesium Oxide 400 mg 01/25/17 22:00 Mag-Ox - PO BID [facility] Oxycodone HCl 5 mg 01/22/17 08:52 Roxicodone - PO Q4H PRN PAIN LEVEL 1-5 Pantoprazole Sodium 40 mg 01/22/17 10:00 01/25/17 09:07 Protonix - PO 40 mg DAILY [facility] Administration Piperacillin Sod/Tazobactam Sod 3.375 gm 01/22/17 18:00 01/25/17 09:06 Zosyn 3.375gm Ivpb (Pre-Docked) IVPB 3.375 gm Q8H-IV [facility] Administration Protocol Torsemide 20 mg 01/25/17 15:00 Demadex - PO DAILY [facility] Microbiology 01/22/17 08:45 Bone Gram Stain - Final 01/22/17 08:45 Bone Tissue Culture - Final Corynebacterium Striatum 01/22/17 08:45 Bone Anaerobic Culture - Final NO ANAEROBES WERE ISOLATED 01/22/17 08:45 Toe - Left Hallux Gram Stain - Final 01/22/17 08:45 Toe - Left Hallux Wound Culture - Final Corynebacterium Species 01/16/17 16:16 Blood - Peripheral Venous Blood Culture - Final NO GROWTH AFTER 5 DAYS INCUBATION 01/16/17 16:16 Blood - Peripheral Venous Blood Culture - Final NO GROWTH AFTER 5 DAYS INCUBATION 01/16/17 22:30 Toe - Left Hallux Gram Stain - Final 01/16/17 22:30 Toe - Left Hallux Wound Culture - Final Diphtheroid/Corynebacterium ASSESSMENT/PLAN: A/p s/p partial amputation of left toe great toe bone culture, corynebacterium case discussed with playground supervisor Dr Bortniker, as patient infected part has been removed, stump is closed, culture has no anarobic bacteria. Short course of antibiotic can be considered. Visit type - Emergency Visit Emergency Visit: Yes ED Registration Date: 01/16/17 Care time: The patient presented to the Emergency Department on the above date and was hospitalized for further evaluation of their emergent condition. - New Patient This patient is new to me today: Yes Date on this admission: 01/25/17 - Critical Care Critical Care patient: No
[2017-01-25] MEDS ORDERED: MAGNESIUM OXIDE 400 MG TABLET (FP) PO SCH (22:00)
--- NOTE | 2017-01-27 11:20 | PATH ---
Surgical Pathology Report Patient Name: MANAS HERMAN Med. Rec. #: [id number] /Age/Gender: 1960 (Age: 56) / M Account: [id number] Location: [facility] MED/SURG Taken: 01/22/2017 Received: 01/22/2017 Reported: 01/26/2017 Physicians: MUNA Green M.D. Specimen(s) Received A: PARTIAL AMPUTATION LEFT FOOT GREAT TOE B: PROXIMAL BONE LEFT TOE HALLUX Clinical History Left foot great toe gangrene, diabetic foot ulcer, osteomyelitis Final Diagnosis A. GREAT TOE, LEFT, PARTIAL AMPUTATION: SKIN, UNDERLYING SOFT TISSUE AND BONE WITH GANGRENOUS NECROSIS. BONE WITH ASSOCIATED ACUTE OSTEOMYELITIS. GANGRENOUS NECROSIS EXTENDS TO SKIN AND SOFT TISSUE MARGIN. ACUTE OSTEOMYELITIS FOCALLY EXTENDS TO THE BONE RESECTION MARGIN. B. PROXIMAL BONE, LEFT TOE HALLUX, EXCISION: BONE WITH FOCAL ACUTE OSTEOMYELITIS. BONE AT RESECTION MARGIN APPEARS VIABLE. Electronically Signed Rome Higginbotham M.D. Gross Description A. Received in formalin labeled "partial amputation left foot great toe" is a 4.0 x 3.3 x 2.7 centimeter portion of a toe amputation specimen. The epidermal surface displays a 4.0 x 3.3 cm black garsia, gangrenous lesion extending to and involving the underlying bone. The lesion appears to focally involve the skin and soft tissue margin. Senior [employer] sections are submitted in 3 cassettes as follows: 1-lesion with underlying bone, following decalcification; 2-bone margin, following decalcification; 3-skin and soft tissue margin. B. Received in formalin labeled "proximal bone left hallux" is a 1.8 x 1.5 x 1.2 cm portion of bone. The specimen displays smooth articular cartilage at one end and smooth trabecular bone at the opposing end. Senior [employer] sections are submitted in 3 cassettes as follows: 1-shave of end with articular cartilage, following decalcification; shave of end with trabecular bone, following decalcification; 3-full thickness section of bone, following decalcification. /01/22/2017 saudi/01/22/2017
== END 2017-01-25 17:10 | DRG 271 ==
LOC: JERFT 14:20 → JER 14:20 → JERBED 18:39 → UNDOADMIN 18:58 → JERBED 18:58 → J4W 21:12 → J8W 22:26
PROVIDERS: ADMIT Emergency Medicine; ATTEND Internal Medicine
PROC: 047S3ZZ Dilation of Left Posterior Tibial Artery, Percutaneous Approach (ICD-10-PCS; 2017-01-20)
PROC: B40DYZZ Plain Radiography of Aorta and Bilateral Lower Extremity Arteries using Other Contrast (ICD-10-PCS; 2017-01-20)
PROC: 3E033GC Introduction of Other Therapeutic Substance into Peripheral Vein, Percutaneous Approach (ICD-10-PCS; 2017-01-20)
PROC: 04CS3ZZ Extirpation of Matter from Left Posterior Tibial Artery, Percutaneous Approach (ICD-10-PCS; principal; 2017-01-20 13:00)
PROC: 0JBR0ZZ Excision of Left Foot Subcutaneous Tissue and Fascia, Open Approach (ICD-10-PCS; 2017-01-22)
PROC: 0Y6Q0Z1 Detachment at Left 1st Toe, High, Open Approach (ICD-10-PCS; 2017-01-22)
PROC: 0QBR0ZX Excision of Left Toe Phalanx, Open Approach, Diagnostic (ICD-10-PCS; 2017-01-22)
PROC: 02HV33Z Insertion of Infusion Device into Superior Vena Cava, Percutaneous Approach (ICD-10-PCS; 2017-01-25)
DX: E11.52 Type 2 diabetes mellitus with diabetic peripheral angiopathy with gangrene (principal); M86.8X7 Other osteomyelitis, ankle and foot; N17.9 Acute kidney failure, unspecified; L03.116 Cellulitis of left lower limb; L02.612 Cutaneous abscess of left foot; Z68.41 Body mass index [BMI] 40.0-44.9, adult; E11.65 Type 2 diabetes mellitus with hyperglycemia; E11.69 Type 2 diabetes mellitus with other specified complication; E11.621 Type 2 diabetes mellitus with foot ulcer; I12.9 Hypertensive chronic kidney disease with stage 1 through stage 4 chronic kidney disease, or unspecified chronic kidney disease; N18.3 Chronic kidney disease, stage 3 (moderate); E11.22 Type 2 diabetes mellitus with diabetic chronic kidney disease; E78.5 Hyperlipidemia, unspecified; F17.210 Nicotine dependence, cigarettes, uncomplicated; I48.2 Chronic atrial fibrillation; E87.6 Hypokalemia; E83.42 Hypomagnesemia; D72.829 Elevated white blood cell count, unspecified; K27.9 Peptic ulcer, site unspecified, unspecified as acute or chronic, without hemorrhage or perforation; I77.1 Stricture of artery; Z91.14 Patient's other noncompliance with medication regimen; Z86.718 Personal history of other venous thrombosis and embolism; Z79.4 Long term (current) use of insulin; E66.9 Obesity, unspecified
CPT/HCPCS: 36415; 36558; 71010-TC; 73630-TC-LT; 74190-TC; 76000-TC; 76775-TC; 76856-TC; 77001-TC; 78315-TC; 80048; 80053; 80162; 81003; 82436; 82550; 82570; 83036; 83605; 83735; 84100; 84133; 84156; 84157; 84300; 84484; 85025; 85027; 85610; 85730; 86850; 86900; 86901; 87040; 87070; 87075; 87205; 88304-TC; 88305-TC; 88311-TC; 93005; 93010; 93306-TC; 93926-TC; 94760; 97116-GP; 97161-GP; 99282-25; A9503; C1751; G0480; J1644

== ENCOUNTER 2017-02-20 21:42 | Observation (INO) | payer OTHER ==
[2017-02-20 22:06] VITALS: BMI 37.5
[2017-02-20] MEDS ORDERED: ALTEPLASE 2 MG VIAL IVPUSH ONE (22:56)
--- NOTE | 2017-02-20 23:14 | PDOC ---
History of Present Illness - General Chief Complaint: PICC Line Insertion Stated Complaint: BLOCKED CENTRAL LINE Time Seen by Provider: 02/20/17 22:10 History Source: Patient Exam Limitations: No Limitations - History of Present Illness Initial Comments: 02/20/17 23:11 56yo Male patient presents to ED via EMS from [facility] for slow infusing PICC line. Patient reports he is in SNF for rehab s/p partial amputation of left great toe. He is currently on IV Abx, but PICC began flushing /infusing slow 3 days ago. He reports nurses have use Heparin flush and Saline flush with no improvement. Patient sent in for medication to break potential clot. Timing/Duration: 1 week Severity: moderate Modifying Factors: improves with: medication (Heparin flush) Associated Symptoms: denies: denies symptoms, chest pain, cough, diaphoresis, fever/chills, headaches, loss of appetite, malaise, nausea/vomiting, rash, seizure, shortness of breath, syncope, weakness, other Aspirin Received prior to arrival: No: no aspirin today, unknown, 81 mg x 1, 81 mg x 2, 81 mg x 3, 81 mg x 4, 325 mg x 1, provided at home, provided by EMS, provided by ED Past History - Travel Traveled outside of the country in the last 30 days: No Close contact w/someone who was outside of country & ill: No - Past Medical History Allergies/Adverse Reactions: Allergies Allergy/AdvReac Type Severity Reaction Status Date / Time No Known Allergies Allergy Verified 02/20/17 21:59 Home Medications: Ambulatory Orders Apixaban [Eliquis -] 10 mg PO BID tablet 10/29/16 Digoxin [Lanoxin -] 0.125 mg PO DAILY tablet 10/29/16 Insulin Sliding Scale [Novolog Vial Sliding Scale -] 1 vial SQ ACHS units 10/29 Spironolactone [Aldactone -] 25 mg PO BID tablet 10/29/16 Sucralfate [Carafate -] 1 gm PO BID tablet 10/29/16 Torsemide [Demadex -] 40 mg PO BID@0600,1800 tablet 10/29/16 Atorvastatin Ca [Lipitor] 80 mg PO HS tablet 01/25/17 Insulin (Levemir) [Levemir Vial] 10 units SQ HS ml 01/25/17 Magnesium Oxide [Mag-Ox -] 400 mg PO BID tablet 01/25/17 Oxycodone HCl [Roxicodone -] 5 mg PO Q4H PRN #0 tablet MDD 5 01/25/17 Pantoprazole Sodium [Protonix -] 40 mg PO DAILY #30 tab 01/25/17 Piperacillin/Tazob 3.375 gm [Zosyn 3.375GM Ivpb (Pre-Docked)] 3.375 gm IVPB Q8H- IV 7 Days 01/25/17 Vancomycin 1,500 mg IVPB Q24H 7 Days 01/25/17 Digoxin [Lanoxin -] 1 tab PO DAILY 02/05/17 Cardiac Disorders: Yes (afib) Diabetes: Yes HTN: Yes - Surgical History Abdominal Surgery: Yes Appendectomy: Yes - Psycho/Social/Smoking Cessation Hx Anxiety: No Suicidal Ideation: No Smoking History: Unknown if ever smoked Have you smoked in the past 12 months: No If you are a former smoker, when did you quit?: 10 yrs ago Information on smoking cessation initiated: No Hx Alcohol Use: No Drug/Substance Use Hx: No Substance Use Type: None Hx Substance Use Treatment: No Review of Systems - Review of Systems Able to Perform ROS?: Yes Is the patient limited Mexican proficient: No Constitutional: No: Chills, Fever Respiratory: No: Shortness of Breath, Stridor, Wheezing Cardiac (ROS): No: Chest Pain, Lightheadedness, Palpitations, Syncope, Chest Tightness ABD/GI: No: Diarrhea, Nausea, Poor Appetite, Poor Fluid Intake, Vomiting, Abdominal cramping : No: Dysuria, Frequency, Flank Pain, Hematuria, Pain, Urgency Musculoskeletal: No: Back Pain Integumentary: No: Bruising, Erythema, Rash Neurological: No: Headache All Other Systems: Reviewed and Negative *Physical Exam - Vital Signs Last Vital Signs Temp Pulse Resp BP Pulse Ox 98.0 F 76 14 121/70 98 02/20/17 22:03 02/20/17 22:03 02/20/17 22:03 02/20/17 22:03 02/20/17 22:03 - Physical Exam General Appearance: Yes: Nourished, Appropriately Dressed. No: Apparent Distress, Mild Distress, Moderate Distress, Severe Distress Neck: positive: Trachea midline, Supple, Other (PICC line clean, dry and intact with alcohol cap to adapter. (Right Chest Wall)). negative: Lymphadenopathy (R) , Lymphadenopathy (L) Respiratory/Chest: positive: Lungs Clear, Normal Breath Sounds. negative: Chest Tender, Respiratory Distress, Accessory Muscle Use, Labored Respiration, Rapid RR Cardiovascular: positive: Regular Rhythm, Regular Rate Musculoskeletal: positive: Normal Inspection Extremity: positive: Normal Capillary Refill, Normal Inspection, Normal Range of Motion. negative: Pedal Edema, Swelling, Calf Tenderness, Erythema, Inflammation Integumentary: positive: Normal Color, Dry, Warm Neurologic: positive: inweaver II-XII NML intact, Fully Oriented, Alert, Normal Mood/ Affect, Normal Response, Motor Strength / Medical Decision Making - Medical Decision Making 02/21/17 05:[address] Woods: Have patient admitted for IV abx, and radiology Dr. Kothari will reinsert PICC. *DC/Admit/Observation/Transfer Diagnosis at time of Disposition: Occlusion of peripherally inserted central catheter (PICC) line Qualifiers: Encounter type: initial encounter Qualified Code(s): T82.898A - Other specified complication of vascular prosthetic devices, implants and grafts, initial encounter - Discharge Dispostion Condition at time of disposition: Fair Admit: Yes
[2017-02-21] MEDS ORDERED: ALTEPLASE 2 MG VIAL IVPUSH ONE (03:17)
[2017-02-21] MEDS ORDERED: PIPERACILLIN/TAZOB 3.375 GM/50 ML PRE-DOCKED IV ONE (05:16)
[2017-02-21 07:27] LABS: BASOPHIL 1.2 % (0-2.0); EOSINOPHIL 3.7 % (0-4.5); MCHC 34.3 g/dl (32.0-35.9); MEAN CELL VOLUME 84.5 fl (80-96); MEAN PLT VOLUME 8.4 fl (7.5-11.1); NEUTROPHILS 63.1 % (42.8-82.8); PLATELET COUNT 249 K/MM3 (134-434); RDW 15.6 % (11.9-15.9); WHITE BLOOD COUNT 11.1 K/mm3 (4.0-10.0)
[2017-02-21 07:36] LABS: INR 1.3 (0.82-1.09); PROTHROMBIN TIME (PATIENT) 14.4 SEC (9.98-11.88)
[2017-02-21 07:39] LABS: ACTIVATED PTT 31.1 SECONDS (26.9-34.4)
[2017-02-21 07:40] LABS: ANION GAP 10 (8-16); BILIRUBIN,TOTAL 0.7 mg/dL (0.2-1.0); CALCIUM 9.5 mg/dL (8.5-10.1); CO2 29 mmol/L (21-32); CREATININE 1.4 mg/dL (0.7-1.3); GLUCOSE,RANDOM 214 mg/dL (74-106); SGPT/ALT 27 U/L (12-78); TOT PROT 7.6 g/dl (6.4-8.2)
[2017-02-21 07:41] LABS: ALK PHOS 134 U/L (45-117)
[2017-02-21 07:55] LABS: SGOT/AST 36 U/L (15-37)
[2017-02-21] MEDS ORDERED: PIPERACILLIN/TAZOB 3.375 GM 50 ML IVPB ONE (09:15)
[2017-02-21] MEDS ORDERED: oxyCODONE HCL 5 MG TABLET PO PRN (12:11)
[2017-02-21] MEDS ORDERED: VANCOMYCIN 1,000 MG VIAL (RESTRICTED TO ID ONLY) IVPB SCH (12:15)
[2017-02-21] MEDS ORDERED: APIXABAN 5 MG TABLET PO SCH (12:15)
[2017-02-21] MEDS ORDERED: PIPERACILLIN/TAZOB 3.375 GM/50 ML PRE-DOCKED IVPB SCH (12:15)
[2017-02-21] MEDS ORDERED: VANCOMYCIN 1,500 MG in DEXTROSE 5%-WATER - 500 ML IVPB ONE (13:00)
[2017-02-21] MEDS: MAGNESIUM OXIDE 400 MG TABLET (FP) PO SCH ×2 (13:15→22:48)
[2017-02-21] MEDS: SUCRALFATE 1 GM TABLET (FP) PO SCH ×2 (13:15→22:47)
[2017-02-21] MEDS: PANTOPRAZOLE 40 MG TABLET (FP) PO SCH (13:15)
[2017-02-21] MEDS: SPIRONOLACTONE 25 MG TABLET (FP) PO SCH ×2 (13:15→22:47)
[2017-02-21] MEDS: DIGOXIN 0.125 MG TABLET (FP) PO SCH (13:15)
[2017-02-21] MEDS: INSULIN SLIDING SCALE (NOVOLOG) 1 VIAL SQ SCH ×2 (16:56→23:26)
[2017-02-21] MEDS: TORSEMIDE 20 MG TABLET (FP) PO SCH (18:24)
--- NOTE | 2017-02-21 20:52 | HP ---
Admitting History and Physical - Primary Care Physician PCP: Dale Vyas - Admission Chief Complaint: PICC LINE OCCLUSION History of Present Illness: 56yo Male patient presents to ED via EMS from [facility] for slow infusing PICC line. Patient reports he is in SNF for rehab s/p partial amputation of left great toe. He is currently on IV Abx, but PICC began flushing /infusing slow 3 days ago. He reports nurses have use Heparin flush and Saline flush with no improvement. Patient sent in for medication to break potential clot. History Source: Transfer Record - Past Medical History Cardiovascular: Yes: AFIB, HTN Endocrine: Yes: Diabetes Mellitus - Past Surgical History Past Surgical History: Yes: Appendectomy - Smoking History Smoking history: Former smoker Have you smoked in the past 12 months: No If you are a former smoker, when did you quit?: 10 yrs ago - Alcohol/Substance Use Hx Alcohol Use: No Home Medications - Allergies Allergies/Adverse Reactions: Allergies Allergy/AdvReac Type Severity Reaction Status Date / Time No Known Allergies Allergy Verified 02/20/17 21:59 - Home Medications Home Medications: Ambulatory Orders Apixaban [Eliquis -] 10 mg PO BID tablet 10/29/16 Digoxin [Lanoxin -] 0.125 mg PO DAILY tablet 10/29/16 Insulin Sliding Scale [Novolog Vial Sliding Scale -] 1 vial SQ ACHS units 10/29 Spironolactone [Aldactone -] 25 mg PO BID tablet 10/29/16 Sucralfate [Carafate -] 1 gm PO BID tablet 10/29/16 Torsemide [Demadex -] 40 mg PO BID@0600,1800 tablet 10/29/16 Atorvastatin Ca [Lipitor] 80 mg PO HS tablet 01/25/17 Insulin (Levemir) [Levemir Vial] 10 units SQ HS ml 01/25/17 Magnesium Oxide [Mag-Ox -] 400 mg PO BID tablet 01/25/17 Oxycodone HCl [Roxicodone -] 5 mg PO Q4H PRN #0 tablet MDD 5 01/25/17 Pantoprazole Sodium [Protonix -] 40 mg PO DAILY #30 tab 01/25/17 Piperacillin/Tazob 3.375 gm [Zosyn 3.375GM Ivpb (Pre-Docked)] 3.375 gm IVPB Q8H- IV 7 Days 01/25/17 Vancomycin 1,500 mg IVPB Q24H 7 Days 01/25/17 Review of Systems - Review of Systems Constitutional: reports: No Symptoms Eyes: reports: No Symptoms HENT: reports: No Symptoms Neck: reports: No Symptoms Cardiovascular: reports: No Symptoms Respiratory: reports: No Symptoms Gastrointestinal: reports: No Symptoms Genitourinary: reports: No Symptoms Breasts: reports: No Symptoms Reported Musculoskeletal: reports: No Symptoms Integumentary: reports: No Symptoms Neurological: reports: No Symptoms Endocrine: reports: No Symptoms Hematology/Lymphatic: reports: No Symptoms Psychiatric: reports: No Symptoms Physical Examination Vital Signs: Vital Signs Temperature 98.1 F 02/21/17 10:42 Pulse Rate 87 02/21/17 17:41 Respiratory Rate 18 02/21/17 17:41 Blood Pressure 119/71 02/21/17 17:41 O2 Sat by Pulse Oximetry (%) 99 02/21/17 17:41 Constitutional: Yes: Well Nourished, No Distress, Calm Cardiovascular: Yes: Regular Rate and Rhythm Respiratory: Yes: Regular Gastrointestinal: Yes: Normal Bowel Sounds Musculoskeletal: Yes: WNL Extremities: Yes: WNL Labs: CBC, BMP 02/21/17 07:05 02/21/17 07:05 Assessment/Plan VASCULAR CONSULT NEW PICC LINE INSERTION?
[2017-02-21] MEDS ORDERED: INSULIN DETEMIR 100 UNITS/ML MDV SQ SCH (22:00)
[2017-02-21] MEDS ORDERED: ATORVASTATIN CA 80 MG TABLET (FP) PO SCH (22:00)
[2017-02-21] MEDS: APIXABAN 5 MG TABLET PO SCH (22:47)
[2017-02-22] MEDS: INSULIN SLIDING SCALE (NOVOLOG) 1 VIAL SQ SCH ×2 (06:45→12:42)
[2017-02-22] MEDS: TORSEMIDE 20 MG TABLET (FP) PO SCH (06:45)
[2017-02-22 09:30] LABS: BASOPHIL 1.1 % (0-2.0); EOSINOPHIL 4.3 % (0-4.5); MCH 28.6 pg (25.7-33.7); MCHC 33.6 g/dl (32.0-35.9); MEAN PLT VOLUME 7.6 fl (7.5-11.1); NEUTROPHILS 65.1 % (42.8-82.8); PLATELET COUNT 261 K/MM3 (134-434); RDW 15.5 % (11.9-15.9); WHITE BLOOD COUNT 10.7 K/mm3 (4.0-10.0)
--- NOTE | 2017-02-22 09:35 | PN ---
Progress Note, Physician History of Present Illness: NO COMPLAINTS - Current Medication List Current Medications: Active Medications Apixaban (Eliquis -) 5 mg PO BID REPLACED BY [facility] Last Admin: 02/21/17 22:47 Dose: 5 mg Atorvastatin Calcium (Lipitor -) 80 mg PO HS REPLACED BY [facility] Last Admin: 02/21/17 22:48 Dose: 80 mg Digoxin (Lanoxin -) 0.125 mg PO DAILY REPLACED BY [facility] Last Admin: 02/21/17 13:15 Dose: 0.125 mg Insulin Aspart (Novolog Vial Sliding Scale -) 1 vial SQ [facility] REPLACED BY [facility] PRN Reason: Protocol Last Admin: 02/22/17 06:45 Dose: 2 units Insulin Detemir (Levemir Vial) 10 units SQ HS REPLACED BY [facility] Last Admin: 02/21/17 22:47 Dose: 10 units Magnesium Oxide (Mag-Ox -) 400 mg PO BID REPLACED BY [facility] Last Admin: 02/21/17 22:48 Dose: 400 mg Oxycodone HCl (Roxicodone -) 5 mg PO Q4H PRN PRN Reason: PAIN LEVEL 1-5 Pantoprazole Sodium (Protonix -) 40 mg PO DAILY REPLACED BY [facility] Last Admin: 02/21/17 13:15 Dose: 40 mg Piperacillin Sod/Tazobactam Sod (Zosyn 3.375gm Ivpb (Pre-Docked)) 3.375 gm IVPB Q8H-IV REPLACED BY [facility] PRN Reason: Protocol Spironolactone (Aldactone -) 25 mg PO BID REPLACED BY [facility] Last Admin: 02/21/17 22:47 Dose: 25 mg Sucralfate (Carafate -) 1 gm PO BID REPLACED BY [facility] Last Admin: 02/21/17 22:47 Dose: 1 gm Torsemide (Demadex -) 40 mg PO BID@0600,1800 REPLACED BY [facility] Last Admin: 02/22/17 06:45 Dose: 40 mg Vancomycin HCl (Vancomycin) 1,500 mg IVPB Q24H REPLACED BY [facility] PRN Reason: Protocol - Objective Vital Signs: Vital Signs Temperature 97.8 F 02/22/17 05:00 Pulse Rate 85 02/22/17 05:00 Respiratory Rate 18 02/22/17 05:00 Blood Pressure 104/75 02/22/17 05:00 O2 Sat by Pulse Oximetry (%) 98 02/22/17 04:00 Cardiovascular: Yes: Regular Rate and Rhythm Respiratory: Yes: Regular, CTA Bilaterally Gastrointestinal: Yes: Normal Bowel Sounds, Soft Labs: CBC, BMP 02/22/17 09:10 INR, PTT INR 1.30 (0.82-1.09) H 02/21/17 07:05 Problem List - Problems (1) Osteomyelitis Assessment/Plan: ABX PER ID D/W DR NOEL --HE WILL SEE AND DECIDE ON DURATION Code(s): M86.9 - OSTEOMYELITIS, UNSPECIFIED (2) Occluded PICC line Assessment/Plan: ABOVE Code(s): T82.898A - OTH COMPLICATION OF VASCULAR PROSTH DEV/GRFT, INIT Qualifiers: Encounter type: initial encounter Qualified Code(s): T82.898A - Other specified complication of vascular prosthetic devices, implants and grafts, initial encounter
[2017-02-22 09:54] LABS: ALBUMIN 3.4 g/dl (3.4-5.0); ANION GAP 9 (8-16); CALCIUM 9.5 mg/dL (8.5-10.1); CO2 32 mmol/L (21-32); GLUCOSE,RANDOM 209 mg/dL (74-106)
[2017-02-22] MEDS: SPIRONOLACTONE 25 MG TABLET (FP) PO SCH (09:54)
[2017-02-22] MEDS: APIXABAN 5 MG TABLET PO SCH (09:54)
[2017-02-22] MEDS: DIGOXIN 0.125 MG TABLET (FP) PO SCH (09:54)
[2017-02-22] MEDS: MAGNESIUM OXIDE 400 MG TABLET (FP) PO SCH (09:54)
[2017-02-22] MEDS: PANTOPRAZOLE 40 MG TABLET (FP) PO SCH (09:54)
[2017-02-22] MEDS: SUCRALFATE 1 GM TABLET (FP) PO SCH (09:54)
[2017-02-22 09:57] LABS: ALK PHOS 152 U/L (45-117); BILIRUBIN,TOTAL 0.9 mg/dL (0.2-1.0); CREATININE 1.5 mg/dL (0.7-1.3); SGOT/AST 29 U/L (15-37); SGPT/ALT 32 U/L (12-78); TOT PROT 8.7 g/dl (6.4-8.2)
--- NOTE | 2017-02-22 11:27 | PN ---
Progress Note (short form) - Note Progress Note: ID Consult dictated Gangrene L great toe s/p partial amputation Osteomyelitis L 2nd toe Day # 31 IV antibiotics D/C Tunnelled catheter/ IV antibiotcs Substitute Augmentin 875mg po bid x 11d
[2017-02-22] MEDS: PIPERACILLIN/TAZOB 3.375 GM/50 ML PRE-DOCKED IVPB SCH (12:14)
[2017-02-22 14:12] VITALS: BP 122/89; PULSE 80; TEMP 97.3
[2017-02-22] MEDS ORDERED: AMOX TR/POT CLAV 875MG/125MG TABLETS (FP) PO SCH (17:30)
--- NOTE | 2017-02-22 23:27 | CONS ---
DATE OF CONSULTATION: DATE OF DICTATION: 02/22/2017 INFECTIOUS DISEASE CONSULTATION HISTORY OF PRESENT ILLNESS: The patient is a 56-year-old diabetic male with a history of gangrene on the left great toe and osteomyelitis of the left second toe, now is seen in followup. The patient was hospitalized at [facility] from January 16 through January 25. At that time, he had presented with gangrene of the left great toe and cellulitis of the left 2nd toe. He underwent an angioplasty and ultimately underwent a partial amputation of the left great toe. According to pathology report, surgical margins were clear of infected bone. He was however also noted to have osteomyelitis of the left 2nd toe. He had a nonhealing ulcer at the distal aspect of that toe. 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 A tunnel catheter was placed, and he was treated with IV vancomycin and Zosyn. [facility] a [facility] facility. He is now day number 31 by the antibiotic therapy post surgery. He reports doing well. He has no complaints of foot pain. The surgical site has healed. He has had significant reduction in the swelling of the left 2nd toe. He reports it now appears normal. He has had no fever or chills, no adverse reaction to the antibiotics. Lately his tunnel catheter was having some issues. There was difficulty infusing and flushing a line. He was sent by the long term to the emergency room to have it replaced. He has no complaints of pain and noted no erythema or drainage from the tunnel catheter site. PAST MEDICAL HISTORY: Positive for diabetes mellitus, chronic kidney disease, atrial fibrillation. PAST SURGICAL HISTORY: Status post appendectomy, and IVC filter placement. ALLERGIES: No known allergies. MEDICATION: Eliquis, Lanoxin, Novolog, Aldactone, Carafate, Demadex, Lipitor, Protonix, oxycodone. SOCIAL HISTORY: Was formerly residing in the community, former smoker, no history of drug abuse. SYSTEMS REVIEW: Neurologic: No loss of consciousness, seizure activity, or focal weakness. Cardiac: Negative chest pain or palpitations. Respiratory: Negative cough or sputum production. Gastrointestinal: Negative vomiting or diarrhea. Genitourinary: Positive for chronic kidney disease. LABORATORY DATA: White count 10.7, hematocrit 38.1, platelet count 261, BUN 28, creatinine 1.5. Chest x-ray negative for acute infiltrate. PHYSICAL EXAMINATION: General: He is awake and alert. He is in no acute distress. Vital signs: Temperature 97.0, blood pressure 139/70, pulse 89 regular, respirations 20 per minute. HEENT: Sclerae anicteric. Poor dentition. Cardiovascular: Heart sounds S1, S2. Respiratory: Lungs clear bilaterally, no rhonchi, rales, or wheezing. Abdomen: Soft. No tenderness elicited. No mass, rebound, or rigidity. Extremities: Examination of the left foot, he is status post partial amputation of the left great toe, surgical wound appears to be well healed without evidence of infection. There is no erythema or drainage. Examination of the left 2nd toe, there is a dry ulceration present at the distal aspect of the toe, no purulent drainage or foul odor. There is slight swelling. No erythema. IMPRESSION: 1. Gangrene, left great toe, status post partial amputation. 2. Osteomyelitis of the left second toe. 3. Diabetes mellitus. 4. Azotemia. Day number 31 IV antibiotics. Discontinue tunnel catheter and IV antibiotics, substitute Augmentin 875 mg p.o. b.i.d. for 11 days. Outpatient podiatry followup. Thank you for the kind referral. ESVIN NOEL M.D. [id number]
--- NOTE | 2017-02-23 11:52 | DS ---
Physical Examination Vital Signs: Vital Signs Temperature 97.3 F L 02/22/17 14:11 Pulse Rate 80 02/22/17 14:11 Respiratory Rate 20 02/22/17 14:11 Blood Pressure 122/89 02/22/17 14:11 O2 Sat by Pulse Oximetry (%) 98 02/22/17 12:00 Labs: CBC, BMP 02/22/17 09:10 02/22/17 09:10 Discharge Summary Reason For Visit: OCCLUSION/PERIPHERALLY/CENTRAL CATHETE(PICC) LINE Current Active Problems Occluded PICC line (Acute) Hospital Course: - Primary Care Physician PCP: Dale Vyas - Admission Chief Complaint: PICC LINE OCCLUSION History of Present Illness: 56yo Male patient presents to ED via EMS from [facility] for slow infusing PICC line. Patient reports he is in SNF for rehab s/p partial amputation of left great toe. He is currently on IV Abx, but PICC began flushing /infusing slow 3 days ago. He reports nurses have use Heparin flush and Saline flush with no improvement. Patient sent in for medication to break potential clot. History Source: Transfer Record - Past Medical History Cardiovascular: Yes: AFIB, HTN Endocrine: Yes: Diabetes Mellitus - Past Surgical History Past Surgical History: Yes: Appendectomy - Smoking History Smoking history: Former smoker Have you smoked in the past 12 months: No If you are a former smoker, when did you quit?: 10 yrs ago Gangrene L great toe s/p partial amputation Osteomyelitis L 2nd toe Day # 31 IV antibiotics D/C Tunnelled catheter/ IV antibiotcs Substitute Augmentin 875mg po bid x 11d Condition: Improved - Instructions Disposition: LONGTERM FACILITY - Home Medications Comprehensive Discharge Medication List: Ambulatory Orders Apixaban [Eliquis -] 10 mg PO BID tablet 10/29/16 Digoxin [Lanoxin -] 0.125 mg PO DAILY tablet 10/29/16 Insulin Sliding Scale [Novolog Vial Sliding Scale -] 1 vial SQ ACHS units 10/29 Spironolactone [Aldactone -] 25 mg PO BID tablet 10/29/16 Sucralfate [Carafate -] 1 gm PO BID tablet 10/29/16 Torsemide [Demadex -] 40 mg PO BID@0600,1800 tablet 10/29/16 Atorvastatin Ca [Lipitor] 80 mg PO HS tablet 01/25/17 Insulin (Levemir) [Levemir Vial] 10 units SQ HS ml 01/25/17 Magnesium Oxide [Mag-Ox -] 400 mg PO BID tablet 01/25/17 Oxycodone HCl [Roxicodone -] 5 mg PO Q4H PRN #0 tablet MDD 5 01/25/17 Pantoprazole Sodium [Protonix -] 40 mg PO DAILY #30 tab 01/25/17 Amox-Tr/K Cl [Augmentin 875-125mg Tablet -] 1 tab PO BID@0800,1730 tablet 02/22
== END 2017-02-22 17:06 ==
LOC: JER 21:42 → JERBED 02-21 06:46 → UNDOADMOB 02-21 06:53 → JERBED 02-22 10:03
PROVIDERS: ADMIT Family Medicine; ATTEND Family Medicine
PROC: 3E03329 Introduction of Other Anti-infective into Peripheral Vein, Percutaneous Approach (ICD-10-PCS; principal; 2017-02-21)
PROC: 3E033GC Introduction of Other Therapeutic Substance into Peripheral Vein, Percutaneous Approach (ICD-10-PCS; 2017-02-21)
PROC: 3E013VG Introduction of Insulin into Subcutaneous Tissue, Percutaneous Approach (ICD-10-PCS; 2017-02-21)
DX: T82.898A Other specified complication of vascular prosthetic devices, implants and grafts, initial encounter (principal); Y83.8 Other surgical procedures as the cause of abnormal reaction of the patient, or of later complication, without mention of misadventure at the time of the procedure; Y92.9 Unspecified place or not applicable; Z89.412 Acquired absence of left great toe; I48.91 Unspecified atrial fibrillation; I10 Essential (primary) hypertension; E11.9 Type 2 diabetes mellitus without complications; Z79.4 Long term (current) use of insulin; Z87.891 Personal history of nicotine dependence; M86.9 Osteomyelitis, unspecified
CPT/HCPCS: 36415; 71010-TC; 80053; 85025; 85610; 85730; 99285-25; G0378; J2997

== ENCOUNTER → 2017-02-24 | Day surgery (SDC) | payer OTHER | END | disposition home or self-care (01) | LOC: JRADIR 12:24 | PROVIDERS: ATTEND Internal Medicine | PROC: 02PY03Z Removal of Infusion Device from Great Vessel, Open Approach (ICD-10-PCS; principal; 2017-02-24) | DX: Z45.2 Encounter for adjustment and management of vascular access device (principal) | CPT/HCPCS: 36589 ==